=== PATIENT | male | born 1940 | race African-American/Black ===

== ENCOUNTER 2016-08-31 18:25 | Inpatient (IN) | payer MEDICARE, OTHER ==
[~2016-08-31] VITALS: Ht 190.5 cm; Wt 84.4 kg
[2016-08-31] MEDS ORDERED: IV NORMAL SALINE 1000ML BAG 1,000 ML IV SCH (19:13)
[2016-08-31] MEDS ORDERED: PANTOPRAZOLE IV PUSH 40 MG VIAL. IVP ONE (19:15)
[2016-08-31] MEDS ORDERED: ONDANSETRON PF 4 MG/2 ML VIAL. IV ONE (19:15)
[2016-08-31 19:27] LABS: BASO % 0 % (0-3); EOS % 0 % (0-3); HEMATOCRIT 30.1 % (39.0-53.0); HEMOGLOBIN 9.3 g/dL (13.0-17.5); LYMPH # 1.2 x10^3/uL (1.0-4.8); LYMPH % 8 % (24-48); MEAN CORPUSCULAR HEMOGLOBIN 32 pg (25-35); MEAN CORPUSCULAR HGB CONC 31 g/dL (31-37); MEAN CORPUSCULAR VOLUME 102 fL (79-100); MONO % 3 % (0-9); NEUT % 89 % (31-73); PLATELET COUNT 368 x10^3/uL (140-400); RED BLOOD COUNT 2.95 x10^6/uL (4.30-5.70); WHITE BLOOD COUNT 15.4 x10^3/uL (4.0-11.0)
--- NOTE | 2016-08-31 19:42 | PHYS DOC ---
Past Medical History Past Medical History: Other Additional Past Medical Histor: MS, GI Bleeding, blind Past Surgical History: Other Additional Past Surgical Histo: ABD Surgery Jul 2016 Alcohol Use: None Drug Use: None Adult General Chief Complaint Chief Complaint: HEMATEMESIS/VOMITING BLOOD HPI HPI Patient is a 75 year old male who presents with hematemesis. The patient was transferred to the emergency department from [facility] in [place], [place] due to hematemesis that started over the last 3 days. The patient is a quadriplegic and was recently admitted at [facility] for GI bleeding. Patient underwent an exploratory laparotomy, however there are no operative reports to confirm what was found. The patient currently has a PEG tube in place and has been having coffee-ground material coming through the tube. Due to continued weakness the patient was sent to the emergency department for further evaluation. Patient admits that he has pain in his abdomen. Patient also appears lethargic but is able to answer questions one given time. He denies any chest pain. Patient does admit to shortness of breath currently. Review of Systems Review of Systems Constitutional: Generalized weakness, denies fevers or chills [] Eyes: Denies change in visual acuity, redness, or eye pain [] HENT: Denies nasal congestion or sore throat [] Respiratory: Shortness of breath [] Cardiovascular: Denies chest pain [] GI: Hematemesis, abdominal pain [] : Denies dysuria or hematuria [] Musculoskeletal: Denies back pain or joint pain [] Integument: Denies rash or skin lesions [] Neurologic: Quadriplegic [] Current Medications Current Medications Current Medications Medications (Trade) Dose Ordered Sig/Doris Start Time Stop Time Status Last Admin Dose Admin Iohexol (Omnipaque 300 Mg/ml) 60 ml 1X ONCE 08/31/16 20:30 08/31/16 20:31 DC 08/31/16 20:30 60 ML Levofloxacin/ Dextrose (LEVAQUIN 750mg PREMIX) 150 ml @ 100 mls/hr 1X ONCE 08/31/16 22:00 08/31/16 23:29 DC 08/31/16 21:51 100 MLS/HR Levofloxacin/ Dextrose 1 each 1 each PRN DAILY PRN 08/31/16 21:15 Ondansetron HCl (Zofran) 4 mg 1X ONCE 08/31/16 19:15 08/31/16 19:17 DC 08/31/16 19:58 4 MG Pantoprazole Sodium (Protonix Vial) 40 mg 1X ONCE 08/31/16 19:15 08/31/16 19:17 DC 08/31/16 19:57 40 MG Sodium Chloride (Iv Sodium Chloride 0.9% 1000ml Bag) 1,000 ml @ 1,000 mls/hr Q1H 08/31/16 19:13 08/31/16 20:12 DC 08/31/16 20:01 1,000 MLS/HR Allergies Allergies Allergies Coded Allergies Type Severity Reaction Last Updated Verified Penicillins Allergy Intermediate 08/31/16 Yes adhesive tape Allergy Intermediate 08/31/16 Yes Physical Exam Physical Exam Constitutional: Alert, afebrile, appears ill. [] HENT: Normocephalic, atraumatic, bilateral external ears normal, pale mucous membranes, no oral exudates, nose normal. [] Eyes: PERRLA, EOMI, conjunctiva normal, no discharge. [] Neck: Normal range of motion, no tenderness, supple, no stridor. [] Cardiovascular: Tachycardia, regular rhythm, no murmur [] Lungs & Thorax: Bilateral breath sounds clear to auscultation [] Abdomen: PEG tube with coffee-ground material in tube, abdomen mildly distended , bowel sounds distant, no guarding on exam. [] Skin: Warm, dry, no erythema, no rash. [] Back: No tenderness, no CVA tenderness. [] Extremities: No tenderness, no cyanosis, no clubbing, ROM intact, no edema. [] Neurologic: Alert and oriented X 3, normal motor function, normal sensory function, no focal deficits noted. [] Current Patient Data Vital Signs Vital Signs Date Time Temp Pulse Resp B/P Pulse Ox O2 Delivery O2 Flow Rate FiO2 08/31/16 22:11 86 15 121/70 99 Nasal Cannula 2 08/31/16 19:25 97.5 97.5 Lab Values Laboratory Tests Test 08/31/16 18:34 08/31/16 19:05 08/31/16 20:20 08/31/16 20:40 Urine Collection Type U cath Urine Color Yellow Urine Clarity Turbid Urine pH 5.0 Urine Specific [place] 1.025 Urine Protein 100mg/dL (NEG-TRACE) Urine Glucose (UA) Negativemg/dL (NEG) Urine Ketones (Stick) Negativemg/dL (NEG) Urine Blood Large (NEG) Urine Nitrite Negative (NEG) Urine Bilirubin Negative (NEG) Urine Urobilinogen Dipstick 0.2mg/dL (0.2 mg/dL) Urine Leukocyte Esterase Large (NEG) Urine RBC Occ/HPF (0-2) Urine WBC Tntc/HPF (0-4) Urine Squamous Epithelial Cells None/LPF Urine Bacteria Many/HPF (0-FEW) White Blood Count 15.4x10^3/uL (4.0-11.0) H Red Blood Count 2.95x10^6/uL (4.30-5.70) L Hemoglobin 9.3g/dL (13.0-17.5) L Hematocrit 30.1% (39.0-53.0) L Mean Corpuscular Volume 102fL (79-100) H Mean Corpuscular Hemoglobin 32pg (25-35) Mean Corpuscular Hemoglobin Concent 31g/dL (31-37) Red Cell Distribution Width 20.0% (11.5-14.5) H Platelet Count 368x10^3/uL (140-400) Neutrophils (%) (Auto) 89% (31-73) H Lymphocytes (%) (Auto) 8% (24-48) L Monocytes (%) (Auto) 3% (0-9) Eosinophils (%) (Auto) 0% (0-3) Basophils (%) (Auto) 0% (0-3) Neutrophils # (Auto) 13.8x10^3uL (1.8-7.7) H Lymphocytes # (Auto) 1.2x10^3/uL (1.0-4.8) Monocytes # (Auto) 0.4x10^3/uL (0.0-1.1) Eosinophils # (Auto) 0.0x10^3/uL (0.0-0.7) Basophils # (Auto) 0.0x10^3/uL (0.0-0.2) Segmented Neutrophils % 82% (35-66) H Band Neutrophils % 9% (0-9) Lymphocytes % 6% (24-48) L Monocytes % 3% (0-10) Platelet Estimate Adequate (ADEQUATE) Polychromasia Slight Anisocytosis Mod Macrocytosis Slight Sodium Level 146mmol/L (136-145) H Potassium Level 4.8mmol/L (3.5-5.1) Chloride Level 109mmol/L (98-107) H Carbon Dioxide Level 26mmol/L (21-32) Anion Gap 11 (6-14) Blood Urea Nitrogen 35mg/dL (8-26) H Creatinine 1.5mg/dL (0.7-1.3) H Estimated GFR (Cockcroft-Gault) 54.9 BUN/Creatinine Ratio 23 (6-20) H Glucose Level 144mg/dL (70-99) H Lactic Acid Level 1.9mmol/L (0.4-2.0) Calcium Level 9.0mg/dL (8.5-10.1) Total Bilirubin 0.2mg/dL (0.2-1.0) Aspartate Amino Transferase (AST) 23U/L (15-37) Alanine Aminotransferase (ALT) 19U/L (16-63) Alkaline Phosphatase 77U/L (46-116) Creatine Kinase 79U/L (39-308) Creatine Kinase MB (Mass) 2.2ng/mL (0.0-3.6) Creatine Kinase MB Relative Index 2.8% (0-4) Troponin I Quantitative 0.034ng/mL (0.000-0.055) Total Protein 8.5g/dL (6.4-8.2) H Albumin 2.4g/dL (3.4-5.0) L Albumin/Globulin Ratio 0.4 (1.0-1.7) L Prothrombin Time 14.7SEC (11.7-14.0) H Prothrombin Time INR 1.2 (0.8-1.1) H PTT 40SEC (24-38) H Stool Occult Blood Negative (NEG) Laboratory Tests 08/31/16 19:05 Laboratory Tests 08/31/16 19:05 EKG EKG Interpreted by me: Heart rate 93, sinus rhythm, leftward axis, no acute ST/T- wave abnormalities present [] Radiology/Procedures Radiology/Procedures 3 view acute abdominal series interpreted by me: Distended loops of large and small bowel, no free air under the diaphragm, no pulmonary effusions or infiltrate [facility] [address] [place] [address] IMAGING REPORT Signed PATIENT: SISSY QUINN ACCOUNT: [id number] : 1940 LOCATION: ER AGE: 75 SEX: M EXAM STATUS: REG ER ORD. PHYSICIAN: CHAPITO RED MD REASON: abdominal pain, intestinal distention PROCEDURE: ABD PELV W/ IV CONTRAST ONLY PROCEDURE CT abdomen pelvis with intravenous contrast. HISTORY Hematemesis, abdominal pain and distention. TECHNIQUE After administration of intravenous contrast only, 60 mL Omnipaque 300, CT of the abdomen and pelvis was performed. Exposure: One or more of the following individualized dose reduction techniques were utilized for this examination: 1. Automated exposure control. 2. Adjustment of the mA and/or kV according to patient size. 3. Use of iterative reconstruction technique. COMPARISON None. FINDINGS Evaluation of enteric structures may be limited by lack of oral contrast. There is motion artifact at multiple levels which could obscure subtle abnormalities. There is significant streak artifact emanating from the patient's arms which are at his side, limiting evaluation. Images of the lower chest demonstrate small left pleural effusion. Bilateral dependent atelectasis is seen. Moderate bilateral gynecomastia is present. Liver is unremarkable as is the spleen. Pancreas and bilateral adrenal glands are unremarkable. Gallbladder is distended, but otherwise unremarkable. The left kidney is severely atrophic. Both kidneys demonstrate numerous low-density lesions, not well characterized on this examination, but probably cysts. Inferior right renal collecting system demonstrates 4 millimeter nonobstructive nephrolith. Aortic atherosclerosis seen. Maradiaga catheter is present in urinary bladder. A percutaneous gastrostomy tube is seen. There are dilated small bowel loops measuring up to 3.5 centimeters in diameter. The distal ileum demonstrates normal caliber and demonstrates presence of gas and fluid. There is probably a relative transition point involving the mid ileum. Colon demonstrates presence of some mildly dense material. Colon is without evidence of inflammation. Levoconvex scoliosis of the spine is seen. Multilevel degeneration of the spine is seen. IMPRESSION 1. Limitations of study as described above. 2. There is evidence of partial small bowel obstruction. There probably is relative transition point involving mid ileum. 3. Atrophic left kidney. Both kidneys demonstrate low-density lesions, probably cysts. Nonobstructive right nephrolith. 4. Small left pleural effusion. Electronically signed by: Ra Priest MD (Aug 31, 2016 21:49:57) DICTATED and SIGNED BY: RA PRIEST MD DATE: 08/31/162148 CC: CHAPITO RED MD; SARTHAK BARAHONA ~ [] Course & Med Decision Making Course & Med Decision Making Pertinent Labs and Imaging studies reviewed. (See chart for details) Patient started on IV fluids in the emergency department. Patient found to have evidence of ileus versus partial small bowel obstruction. Due to coffee-ground emesis, the patient was started on IV Protonix with IV bolus followed by IV drip. The the patient's G-tube was set to low suction in the emergency department. On reevaluation, patient states his symptoms are improving at this time. I spoke with Dr. Shane of general surgery who agreed that the patient would be a candidate for nonoperative treatment at this time. Patient was found to have evidence of urinary tract infection and started on IV Levaquin for treatment. The patient will be admitted to the hospital with consultation placed to both Dr. Shane of general surgery and Dr. Rosario of gastroenterology. Patient was admitted to Dr. Oakley. Dragon Disclaimer Dragon Disclaimer This electronic medical record was generated, in whole or in part, using a voice recognition dictation system. Departure Departure Impression: Primary Impression: SBO (small bowel obstruction) Additional Impressions: UTI (urinary tract infection) Upper GI bleed Severe protein-calorie malnutrition Quadriplegia Disposition: 09 ADMITTED INPATIENT Admitting Physician: Juliet Oakley Condition: GUARDED Referrals: SARTHAK BARAHONA (PCP) Problem Qualifiers Additional Impressions: UTI (urinary tract infection) Urinary tract infection type: site unspecified Hematuria presence: without hematuria Qualified Code: N39.0 - Urinary tract infection, site not specified CHAPITO RED MD Aug 31, 2016 19:42
[2016-08-31 19:55] LABS: ALBUMIN 2.4 g/dL (3.4-5.0); ALBUMIN/GLOBULIN RATIO 0.4 (1.0-1.7); CREATININE 1.5 mg/dL (0.7-1.3); GFR 54.9; POTASSIUM 4.8 mmol/L (3.5-5.1); TOTAL BILIRUBIN 0.2 mg/dL (0.2-1.0); TOTAL PROTEIN 8.5 g/dL (6.4-8.2)
[2016-08-31 19:57] LABS: CKMB INDEX 2.8 % (0-4); CKMB MASS 2.2 ng/mL (0.0-3.6)
[2016-08-31 20:11] LABS: ANISOCYTOSIS MOD; PLT ESTIMATE ADEQUATE (ADEQUATE); POLYCHROMASIA SLIGHT
[2016-08-31 20:20] LABS: BILIRUBIN,URINE NEGATIVE (NEG); GLUCOSE,URINE NEGATIVE (NEG); NITRITE,URINE NEGATIVE (NEG); PROTEIN,URINE 100 mg/dL (NEG-TRACE); UROBILINOGEN,URINE 0.2 mg/dL (0.2 mg/dL)
[2016-08-31 20:29] LABS: RBC,URINE OCC /HPF (0-2); WBC,URINE TNTC /HPF (0-4)
[2016-08-31 20:30] LABS: BACTERIA,URINE MANY /HPF (0-FEW)
[2016-08-31] MEDS ORDERED: IOHEXOL 300 MG/ML 75 ML VIAL IV ONE (20:30)
[2016-08-31 21:01] LABS: INR 1.2 (0.8-1.1); PROTHROMBIN TIME PATIENT 14.7 SEC (11.7-14.0)
[2016-08-31 21:09] LABS: NEG OBC FOB NEG; POS OBC FOB POS
[2016-08-31] MEDS ORDERED: LEVOFLOXACIN PER PHARMACY MC PRN (21:15)
--- NOTE | 2016-08-31 21:51 | RAD ---
PROCEDURE CT abdomen pelvis with intravenous contrast. HISTORY Hematemesis, abdominal pain and distention. TECHNIQUE After administration of intravenous contrast only, 60 mL Omnipaque 300, CT of the abdomen and pelvis was performed. Exposure: One or more of the following individualized dose reduction techniques were utilized for this examination: 1. Automated exposure control. 2. Adjustment of the mA and/or kV according to patient size. 3. Use of iterative reconstruction technique. COMPARISON None. FINDINGS Evaluation of enteric structures may be limited by lack of oral contrast. There is motion artifact at multiple levels which could obscure subtle abnormalities. There is significant streak artifact emanating from the patient's arms which are at his side, limiting evaluation. Images of the lower chest demonstrate small left pleural effusion. Bilateral dependent atelectasis is seen. Moderate bilateral gynecomastia is present. Liver is unremarkable as is the spleen. Pancreas and bilateral adrenal glands are unremarkable. Gallbladder is distended, but otherwise unremarkable. The left kidney is severely atrophic. Both kidneys demonstrate numerous low-density lesions, not well characterized on this examination, but probably cysts. Inferior right renal collecting system demonstrates 4 millimeter nonobstructive nephrolith. Aortic atherosclerosis seen. Maradiaga catheter is present in urinary bladder. A percutaneous gastrostomy tube is seen. There are dilated small bowel loops measuring up to 3.5 centimeters in diameter. The distal ileum demonstrates normal caliber and demonstrates presence of gas and fluid. There is probably a relative transition point involving the mid ileum. Colon demonstrates presence of some mildly dense material. Colon is without evidence of inflammation. Levoconvex scoliosis of the spine is seen. Multilevel degeneration of the spine is seen. IMPRESSION 1. Limitations of study as described above. 2. There is evidence of partial small bowel obstruction. There probably is relative transition point involving mid ileum. 3. Atrophic left kidney. Both kidneys demonstrate low-density lesions, probably cysts. Nonobstructive right nephrolith. 4. Small left pleural effusion. Electronically signed by: Ra Donovan MD (Aug 31, 2016 21:49:57)
[2016-08-31] MEDS ORDERED: PANTOPRAZOLE SODIUM IV 80 MG in IV NORMAL SALINE 100ML 100 ML IV ONE (23:00)
[2016-08-31 23:20] VITALS: BP 101/58
[2016-09-01] VITALS (10 sets, daily range): BP systolic 76–123; BP diastolic 44–68
[2016-09-01] MEDS: IV NORMAL SALINE 1000ML BAG 1,000 ML IV SCH ×2 (00:13→21:18)
[2016-09-01] MEDS ORDERED: TIMO5DRO5 LEFTEYE (03:40)
[2016-09-01] MEDS ORDERED: ATOR80TA72 PEG (03:40)
[2016-09-01] MEDS ORDERED: AMLO5TAB2 PEG (03:40)
[2016-09-01] MEDS ORDERED: ZOLP5TAB4 PO (03:40)
[2016-09-01] MEDS ORDERED: OXYB5SYR2 PO (03:40)
[2016-09-01] MEDS ORDERED: ACET325T9 PEG (03:40)
[2016-09-01] MEDS ORDERED: ENOX40DI SQ (03:40)
[2016-09-01] MEDS ORDERED: FERR-26 PEG (03:40)
[2016-09-01] MEDS ORDERED: CYAN10005 SL (03:40)
[2016-09-01] MEDS ORDERED: ASCO500T3 PEG (03:40)
[2016-09-01] MEDS ORDERED: FENT1PAT93 TD (03:40)
[2016-09-01] MEDS ORDERED: OXYC-323 PEG (03:40)
[2016-09-01] MEDS ORDERED: [UNRECOGNIZED DRUG - CODE] PEG (03:40)
[2016-09-01] MEDS ORDERED: ASPI81TA2 PEG (03:40)
[2016-09-01] MEDS: MORPHINE SULFATE 2 MG/ML DISP.SYRIN. IV PRN ×5 (04:24→18:27)
--- NOTE | 2016-09-01 06:28 | EKG ---
[facility] [address] [place] [address] Test Date: 2016-08-31 Test Time: 19:50:12 Pat Name: SISSY QUINN Department: Room: Gender: M Administrative Technician: : 1940 Requested By: CHAPITO RED Order Number: [id number] Reading MD: Measurements Intervals Vina Rate: 93 P: 30 ID: [id number] QRS: 0 QRSD: 72 T: 66 QT: 358 QTc: 448 Interpretive Statements SINUS RHYTHM LEFT ATRIAL ABNORMALITY LEFTWARD AXIS QRS(T) CONTOUR ABNORMALITY CONSISTENT WITH INFERIOR INFARCT PROBABLY OLD T ABNORMALITY IN HIGH LATERAL LEADS ABNORMAL ECG RI6.01 No previous ECG available for comparison
[2016-09-01 07:31] LABS: BASO % 0 % (0-3); EOS % 0 % (0-3); HEMATOCRIT 25.9 % (39.0-53.0); HEMOGLOBIN 7.8 g/dL (13.0-17.5); LYMPH % 21 % (24-48); MEAN CORPUSCULAR HEMOGLOBIN 32 pg (25-35); MEAN CORPUSCULAR HGB CONC 30 g/dL (31-37); MEAN CORPUSCULAR VOLUME 106 fL (79-100); MONO % 4 % (0-9); NEUT % 75 % (31-73); PLATELET COUNT 285 x10^3/uL (140-400); RED BLOOD COUNT 2.44 x10^6/uL (4.30-5.70); RED CELL DISTRIBUTION WIDTH 20.1 % (11.5-14.5); WHITE BLOOD COUNT 9.6 x10^3/uL (4.0-11.0)
[2016-09-01 07:43] LABS: CALCIUM 8.1 mg/dL (8.5-10.1); CREATININE 1.4 mg/dL (0.7-1.3); GFR 59.5
--- NOTE | 2016-09-01 08:11 | RAD ---
Portable abdomen series with chest, 3 views, 08/31/2016: History: Hematemesis A gastrostomy tube overlies the left upper quadrant of the abdomen. There is mild gaseous distention of predominantly small bowel loops in the central abdomen. Gas is present in the colon. No free air is seen in the abdomen. There are scattered vascular calcifications. There are additional small scattered radiopacities which may represent phleboliths. Renal calculi cannot be excluded. The bony structures are demineralized. Moderate multilevel degenerative change is present in the spine. The heart is within normal limits in size. There is mild streaky atelectasis/infiltrate in the left base. A component of scarring cannot be excluded. There is no evidence of pleural fluid. IMPRESSION: 1. Mildly distended gas-filled small bowel loops compatible with partial small bowel obstruction versus an ileus. 2. Mild left basilar atelectasis/infiltrate.
[2016-09-01] MEDS: ONDANSETRON PF 4 MG/2 ML VIAL. IV PRN ×2 (08:42→18:26)
--- NOTE | 2016-09-01 08:49 | PDOC2 ---
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 Post-operatively, he had SD and resp failure, was intubated, and had PEG placed endoscopically. His daughter is present to provide history and reports that he has been able to eat by mouth at his senior living beginning on 08/29. After PO restarted, the nurse there described some coffee-ground emesis. His daughter says he was brought to the [facility] ER due to red eyes, sweats, and heavy breathing. The ER note suggests that coffee-ground material was coming out of his PEG tube; per RN and daughter , material suctioned from PEG since admission has been green. Vomiting has not recurred. He has indicated to his daughter that he has some abdominal pain. It 's unclear when his last BM was but he does have a h/o some constipation improved w/ stool softeners. No previous colonoscopy. Note home meds show ASA , iron, B12. Here, labs Hgb 9.3 (now 7.8), BUN 35 (now 33), Cr 1.4, hemoccult negative. CT w/ IV contrast shows partial small bowel obstruction. Surgery asked to see as well. PMH: PMH: neuroendocrine tumor, exploratory lap, MS, HTN, UTIs, neurogenic bladder, glaucoma, cataract extraction FH: Family History: No pertinent hx Social History: ALCOHOL: none Drugs: None ROS: Per pt and daughter: GEN: sweats HEENT: Denies blurred vision, sore throat CV: Denies chest pain RESP: SOA GI: Per HPI : Denies hematuria, dysuria ENDO: Denies weight changes NEURO: Denies confusion, dizziness MSK: weakness SKIN: Denies jaundice, pruritus VItals: Vitals: Vital Signs Date Time Temp Pulse Resp B/P Pulse Ox O2 Delivery O2 Flow Rate FiO2 09/01/16 06:32 16 Room Air 09/01/16 04:21 68 123/68 09/01/16 03:00 97.3 94 97.3 09/01/16 00:00 3.0 Labs: Labs: Laboratory Tests Test 08/31/16 18:34 08/31/16 19:05 08/31/16 20:20 2/16/17 20:40 Urine Collection Type U cath Urine Color Yellow Urine Clarity Turbid Urine pH 5.0 Urine Specific [place] 1.025 Urine Protein 100mg/dL (NEG-TRACE) Urine Glucose (UA) Negativemg/dL (NEG) Urine Ketones (Stick) Negativemg/dL (NEG) Urine Blood Large (NEG) Urine Nitrite Negative (NEG) Urine Bilirubin Negative (NEG) Urine Urobilinogen Dipstick 0.2mg/dL (0.2 mg/dL) Urine Leukocyte Esterase Large (NEG) Urine RBC Occ/HPF (0-2) Urine WBC Tntc/HPF (0-4) Urine Squamous Epithelial Cells None/LPF Urine Bacteria Many/HPF (0-FEW) White Blood Count 15.4x10^3/uL (4.0-11.0) Red Blood Count 2.95x10^6/uL (4.30-5.70) Hemoglobin 9.3g/dL (13.0-17.5) Hematocrit 30.1% (39.0-53.0) Mean Corpuscular Volume 102fL (79-100) Mean Corpuscular Hemoglobin 32pg (25-35) Mean Corpuscular Hemoglobin Concent 31g/dL (31-37) Red Cell Distribution Width 20.0% (11.5-14.5) Platelet Count 368x10^3/uL (140-400) Neutrophils (%) (Auto) 89% (31-73) Lymphocytes (%) (Auto) 8% (24-48) Monocytes (%) (Auto) 3% (0-9) Eosinophils (%) (Auto) 0% (0-3) Basophils (%) (Auto) 0% (0-3) Neutrophils # (Auto) 13.8x10^3uL (1.8-7.7) Lymphocytes # (Auto) 1.2x10^3/uL (1.0-4.8) Monocytes # (Auto) 0.4x10^3/uL (0.0-1.1) Eosinophils # (Auto) 0.0x10^3/uL (0.0-0.7) Basophils # (Auto) 0.0x10^3/uL (0.0-0.2) Segmented Neutrophils % 82% (35-66) Band Neutrophils % 9% (0-9) Lymphocytes % 6% (24-48) Monocytes % 3% (0-10) Platelet Estimate Adequate (ADEQUATE) Polychromasia Slight Anisocytosis Mod Macrocytosis Slight Sodium Level 146mmol/L (136-145) Potassium Level 4.8mmol/L (3.5-5.1) Chloride Level 109mmol/L (98-107) Carbon Dioxide Level 26mmol/L (21-32) Anion Gap 11 (6-14) Blood Urea Nitrogen 35mg/dL (8-26) Creatinine 1.5mg/dL (0.7-1.3) Estimated GFR (Cockcroft-Gault) 54.9 BUN/Creatinine Ratio 23 (6-20) Glucose Level 144mg/dL (70-99) Lactic Acid Level 1.9mmol/L (0.4-2.0) Calcium Level 9.0mg/dL (8.5-10.1) Total Bilirubin 0.2mg/dL (0.2-1.0) Aspartate Amino Transf (AST/SGOT) 23U/L (15-37) Alanine Aminotransferase (ALT/SGPT) 19U/L (16-63) Alkaline Phosphatase 77U/L (46-116) Creatine Kinase 79U/L (39-308) Creatine Kinase MB (Mass) 2.2ng/mL (0.0-3.6) Creatine Kinase MB Relative Index 2.8% (0-4) Troponin I Quantitative 0.034ng/mL (0.000-0.055) Total Protein 8.5g/dL (6.4-8.2) Albumin 2.4g/dL (3.4-5.0) Albumin/Globulin Ratio 0.4 (1.0-1.7) Prothrombin Time 14.7SEC (11.7-14.0) Prothromb Time International Ratio 1.2 (0.8-1.1) Activated Partial Thromboplast Time 40SEC (24-38) Stool Occult Blood Negative (NEG) Test 09/01/16 07:21 White Blood Count 9.6x10^3/uL (4.0-11.0) Red Blood Count 2.44x10^6/uL (4.30-5.70) Hemoglobin 7.8g/dL (13.0-17.5) Hematocrit 25.9% (39.0-53.0) Mean Corpuscular Volume 106fL (79-100) Mean Corpuscular Hemoglobin 32pg (25-35) Mean Corpuscular Hemoglobin Concent 30g/dL (31-37) Red Cell Distribution Width 20.1% (11.5-14.5) Platelet Count 285x10^3/uL (140-400) Neutrophils (%) (Auto) 75% (31-73) Lymphocytes (%) (Auto) 21% (24-48) Monocytes (%) (Auto) 4% (0-9) Eosinophils (%) (Auto) 0% (0-3) Basophils (%) (Auto) 0% (0-3) Neutrophils # (Auto) 7.1x10^3uL (1.8-7.7) Lymphocytes # (Auto) 2.0x10^3/uL (1.0-4.8) Monocytes # (Auto) 0.4x10^3/uL (0.0-1.1) Eosinophils # (Auto) 0.0x10^3/uL (0.0-0.7) Basophils # (Auto) 0.0x10^3/uL (0.0-0.2) Sodium Level 150mmol/L (136-145) Potassium Level 5.0mmol/L (3.5-5.1) Chloride Level 115mmol/L (98-107) Carbon Dioxide Level 26mmol/L (21-32) Anion Gap 9 (6-14) Blood Urea Nitrogen 33mg/dL (8-26) Creatinine 1.4mg/dL (0.7-1.3) Estimated GFR (Cockcroft-Gault) 59.5 Glucose Level 104mg/dL (70-99) Calcium Level 8.1mg/dL (8.5-10.1) Allergies: Coded Allergies: Penicillins (Verified Allergy, Intermediate, 08/31/16) adhesive tape (Verified Allergy, Intermediate, 08/31/16) Medications: Current Medications Medications (Trade) Dose Ordered Sig/Doris Route PRN Reason Start Time Stop Time Status Last Admin Dose Admin Sodium Chloride (Iv Sodium Chloride 0.9% 1000ml Bag) 1,000 ml @ 1,000 mls/hr Q1H IV 08/31/16 19:13 08/31/16 20:12 DC 08/31/16 20:01 Ondansetron HCl (Zofran) 4 mg 1X ONCE IV 08/31/16 19:15 08/31/16 19:17 DC 08/31/16 19:58 Pantoprazole Sodium (Protonix Vial) 40 mg 1X ONCE IVP 08/31/16 19:15 08/31/16 19:17 DC 08/31/16 19:57 Iohexol 60 ml 60 ml 1X ONCE IV 08/31/16 20:30 08/31/16 20:31 DC 08/31/16 20:30 Levofloxacin/ Dextrose 150 ml @ 100 mls/hr 1X ONCE IV 08/31/16 22:00 08/31/16 23:29 DC 08/31/16 21:51 Pantoprazole Sodium 80 mg/ Sodium Chloride 100 ml @ 10 mls/hr 1X ONCE IV 08/31/16 23:00 09/01/16 08:59 09/01/16 00:14 Sodium Chloride (Iv Sodium Chloride 0.9% 1000ml Bag) 1,000 ml @ 100 mls/hr Q10H IV 08/31/16 23:26 09/01/16 23:25 09/01/16 00:13 Morphine Sulfate 2 mg PRN Q2HR PRN IV SEVERE PAIN 09/01/16 03:15 09/01/16 06:32 Imaging: Imaging: Acute Abd Series IMPRESSION: 1. Mildly distended gas-filled small bowel loops compatible with partial small bowel obstruction versus an ileus. 2. Mild left basilar atelectasis/infiltrate. CT A/P w/ IV contrast IMPRESSION 1. Limitations of study as described above. 2. There is evidence of partial small bowel obstruction. There probably is relative transition point involving mid ileum. 3. Atrophic left kidney. Both kidneys demonstrate low-density lesions, probably cysts. Nonobstructive right nephrolith. 4. Small left pleural effusion. PE: GEN: NAD HEENT: Atraumatic LUNGS: decreased anteriorly HEART: RRR ABD: BS+, soft, non-tender, PEG in place w/ green contents on suction, recent lap scar EXTREMITY: No edema SKIN: No rashes NEURO/PSYCH: awake, speaks some to daughter A/P: A/P: S/p laparotomy and PEG placement -at , surgery showed neuroendocrine tumor, post-op course was complicated w/ resp failure, SD ?hematemesis, abd pain -after resuming PO intake earlier this week, described by [place] nurse -PEG contents now green Partial SBO -on CT as above Anemia -Hgb 9.3 to 7.8 -- Reviewed w/ Dr. Rosario. Stress-ulcer possible w/ recent PEG placement. Agree w/ PPI. D/w surgery - NPO, continue PEG suction. If no improvement, ideally would transfer to to follow-up w/ established surgeon. Would transfuse. DAMON LANGSTON Sep 01, 2016 08:49
--- NOTE | 2016-09-01 09:03 | PDOC2 ---
TIMURRONALD Martha DRUM STRAIGHTENER 09/01/16 0903: CONSULT Date of Consult Date of Consult DATE: 09/01/16 TIME: 08:44 Reason for Consult Reason for Consult: GI bleed, psbo Referring Physician Referring Physician: ER Identification/Chief Complaint Chief Complaint hematemesis, abdominal pain Source Source: Chart review, Patient History of Present Illness Reason for Visit: Patient unable to provide history. Daughter is present and records reviewed from [place]. 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 Began taking oral food again on Sunday. had coffee ground emesis and complaints of abdominal pain. No emesis since admission Past Medical History Past Medical History legally blind, neurogenic bladder, multiple sclerosis, depression, chronic abdominal pain, quadriplegic due to MS, bed bound Past Surgical History Past Surgical History: Cataract Removal, Other (laparotomy, egd, peg placement) Family History Family History: Other (noncontributory to current illness) Social History No ALCOHOL: none Drugs: None Lives: Longterm Current Problem List Problem List Problems Medical Problems: (1) Quadriplegia Status: Acute (2) SBO (small bowel obstruction) Status: Acute (3) Severe protein-calorie malnutrition Status: Acute (4) Upper GI bleed Status: Acute (5) UTI (urinary tract infection) Status: Acute Current Medications Current Medications Current Medications Sodium Chloride (Iv Sodium Chloride 0.9% 1000ml Bag) 1,000 ml @ 1,000 mls/hr Q1H IV Last administered on 08/31/16 20:01; Start 08/31/16 at 19:13; Stop at 20:12; Status DC Ondansetron HCl (Zofran) 4 mg 1X ONCE IV Last administered on 08/31/16 19:58 ; Start 08/31/16 at 19:15; Stop 08/31/16 at 19:17; Status DC Pantoprazole Sodium (Protonix Vial) 40 mg 1X ONCE IVP Last administered on 19:57; Start 08/31/16 at 19:15; Stop 08/31/16 at 19:17; Status DC Iohexol (Omnipaque 300 Mg/ml) 60 ml 1X ONCE IV Last administered on 08/31/16 20:30; Start 08/31/16 at 20:30; Stop 08/31/16 at 20:31; Status DC Levofloxacin/ Dextrose 1 each 1 each PRN DAILY PRN MC SEE COMMENTS; Start 08/31 at 21:15 Levofloxacin/ Dextrose 150 ml @ 100 mls/hr 1X ONCE IV Last administered on 21:51; Start 08/31/16 at 22:00; Stop 08/31/16 at 23:29; Status DC Pantoprazole Sodium 80 mg/ Sodium Chloride 100 ml @ 10 mls/hr 1X ONCE IV Last administered on 09/01/16 00:14; Start 08/31/16 at 23:00; Stop 09/01/16 at 08:59 Levofloxacin/ Dextrose (LEVAQUIN 250mg PREMIX) 50 ml @ 50 mls/hr Q24H IV ; Start 09/01/16 at 22:00 Ondansetron HCl 4 mg 4 mg PRN Q8HRS PRN IV NAUSEA/VOMITING Last administered on 09/01/16 08:42; Start 08/31/16 at 23:30; Stop 09/01/16 at 23:29 Sodium Chloride (Iv Sodium Chloride 0.9% 1000ml Bag) 1,000 ml @ 100 mls/hr Q10H IV Last administered on 09/01/16 00:13; Start 08/31/16 at 23:26; Stop at 23:25 Morphine Sulfate 2 mg PRN Q2HR PRN IV SEVERE PAIN Last administered on 08:41; Start 09/01/16 at 03:15 Active Scripts Active Reported Timolol Maleate 10 Ml Drops 1 Drop LEFTEYE DAILY Zolpidem Tartrate 5 Mg Tablet 5 Mg PO HS Percocet 5-325 Mg Tablet (Oxycodone/Acetaminophen) 1 Each Tablet 1 Tab PEG PRN Q4HRS PRN Oxybutynin Chloride 5 Mg/5 Ml Syrup 5 Mg PO BID Ferrous Sulfate 325 Mg Tablet 300 Mg PEG DAILY DURAGESIC 100mcg/hr (Fentanyl) 1 Each Patch.td72 1 Patch TD Q72H Lovenox (Enoxaparin Sodium) 40 Mg/0.4 Ml Disp.syrin 40 Mg SQ HS Vitamin B-12 (Cyanocobalamin (Vitamin B-12)) 1,000 Mcg Tablet 1,000 Mcg SL DAILY Just D (Cholecalciferol (Vitamin D3)) 400 Unit/1 Ml Drops 400 Unit PEG DAILY Atorvastatin Calcium 80 Mg Tablet 80 Mg PEG HS Aspirin 81 Mg Tab.chew 81 Mg PEG DAILY Ascorbic Acid 500 Mg Tablet 500 Mg PEG DAILY Amlodipine Besylate 5 Mg Tablet 5 Mg PEG DAILY Tylenol (Acetaminophen) 325 Mg Tablet 650 Mg PEG PRN PRN Allergies Allergies: Coded Allergies: Penicillins (Verified Allergy, Intermediate, 08/31/16) adhesive tape (Verified Allergy, Intermediate, 08/31/16) ROS Review of System unable to obtain Physical Exam General: No acute distress, Other (resting in bed, mainly non verbal, will answer few yes/no questions ) HEENT: Atraumatic, Mucous membr. moist/pink Lungs: Other (diminshed [place]) Heart: Regular rate, Normal S1, Normal S2 Abdomen: Soft, Other (does not appear in pain when palpated, midline scar well healed, g tube to LIS, gastric drainage, no blood) Extremities: No edema Skin: No rashes, No breakdown Vitals VITALS Vital Signs Date Time Temp Pulse Resp B/P Pulse Ox O2 Delivery O2 Flow Rate FiO2 09/01/16 08:41 18 Nasal Cannula 3.0 09/01/16 04:21 68 123/68 09/01/16 03:00 97.3 94 97.3 Labs Labs Laboratory Tests Test 08/31/16 18:34 08/31/16 19:05 08/31/16 20:20 08/31/16 20:40 Urine Collection Type U cath Urine Color Yellow Urine Clarity Turbid Urine pH 5.0 Urine Specific [place] 1.025 Urine Protein 100mg/dL (NEG-TRACE) Urine Glucose (UA) Negativemg/dL (NEG) Urine Ketones (Stick) Negativemg/dL (NEG) Urine Blood Large (NEG) Urine Nitrite Negative (NEG) Urine Bilirubin Negative (NEG) Urine Urobilinogen Dipstick 0.2mg/dL (0.2 mg/dL) Urine Leukocyte Esterase Large (NEG) Urine RBC Occ/HPF (0-2) Urine WBC Tntc/HPF (0-4) Urine Squamous Epithelial Cells None/LPF Urine Bacteria Many/HPF (0-FEW) White Blood Count 15.4x10^3/uL (4.0-11.0) Red Blood Count 2.95x10^6/uL (4.30-5.70) Hemoglobin 9.3g/dL (13.0-17.5) Hematocrit 30.1% (39.0-53.0) Mean Corpuscular Volume 102fL (79-100) Mean Corpuscular Hemoglobin 32pg (25-35) Mean Corpuscular Hemoglobin Concent 31g/dL (31-37) Red Cell Distribution Width 20.0% (11.5-14.5) Platelet Count 368x10^3/uL (140-400) Neutrophils (%) (Auto) 89% (31-73) Lymphocytes (%) (Auto) 8% (24-48) Monocytes (%) (Auto) 3% (0-9) Eosinophils (%) (Auto) 0% (0-3) Basophils (%) (Auto) 0% (0-3) Neutrophils # (Auto) 13.8x10^3uL (1.8-7.7) Lymphocytes # (Auto) 1.2x10^3/uL (1.0-4.8) Monocytes # (Auto) 0.4x10^3/uL (0.0-1.1) Eosinophils # (Auto) 0.0x10^3/uL (0.0-0.7) Basophils # (Auto) 0.0x10^3/uL (0.0-0.2) Segmented Neutrophils % 82% (35-66) Band Neutrophils % 9% (0-9) Lymphocytes % 6% (24-48) Monocytes % 3% (0-10) Platelet Estimate Adequate (ADEQUATE) Polychromasia Slight Anisocytosis Mod Macrocytosis Slight Sodium Level 146mmol/L (136-145) Potassium Level 4.8mmol/L (3.5-5.1) Chloride Level 109mmol/L (98-107) Carbon Dioxide Level 26mmol/L (21-32) Anion Gap 11 (6-14) Blood Urea Nitrogen 35mg/dL (8-26) Creatinine 1.5mg/dL (0.7-1.3) Estimated GFR (Cockcroft-Gault) 54.9 BUN/Creatinine Ratio 23 (6-20) Glucose Level 144mg/dL (70-99) Lactic Acid Level 1.9mmol/L (0.4-2.0) Calcium Level 9.0mg/dL (8.5-10.1) Total Bilirubin 0.2mg/dL (0.2-1.0) Aspartate Amino Transf (AST/SGOT) 23U/L (15-37) Alanine Aminotransferase (ALT/SGPT) 19U/L (16-63) Alkaline Phosphatase 77U/L (46-116) Creatine Kinase 79U/L (39-308) Creatine Kinase MB (Mass) 2.2ng/mL (0.0-3.6) Creatine Kinase MB Relative Index 2.8% (0-4) Troponin I Quantitative 0.034ng/mL (0.000-0.055) Total Protein 8.5g/dL (6.4-8.2) Albumin 2.4g/dL (3.4-5.0) Albumin/Globulin Ratio 0.4 (1.0-1.7) Prothrombin Time 14.7SEC (11.7-14.0) Prothromb Time International Ratio 1.2 (0.8-1.1) Activated Partial Thromboplast Time 40SEC (24-38) Stool Occult Blood Negative (NEG) Test 09/01/16 07:21 White Blood Count 9.6x10^3/uL (4.0-11.0) Red Blood Count 2.44x10^6/uL (4.30-5.70) Hemoglobin 7.8g/dL (13.0-17.5) Hematocrit 25.9% (39.0-53.0) Mean Corpuscular Volume 106fL (79-100) Mean Corpuscular Hemoglobin 32pg (25-35) Mean Corpuscular Hemoglobin Concent 30g/dL (31-37) Red Cell Distribution Width 20.1% (11.5-14.5) Platelet Count 285x10^3/uL (140-400) Neutrophils (%) (Auto) 75% (31-73) Lymphocytes (%) (Auto) 21% (24-48) Monocytes (%) (Auto) 4% (0-9) Eosinophils (%) (Auto) 0% (0-3) Basophils (%) (Auto) 0% (0-3) Neutrophils # (Auto) 7.1x10^3uL (1.8-7.7) Lymphocytes # (Auto) 2.0x10^3/uL (1.0-4.8) Monocytes # (Auto) 0.4x10^3/uL (0.0-1.1) Eosinophils # (Auto) 0.0x10^3/uL (0.0-0.7) Basophils # (Auto) 0.0x10^3/uL (0.0-0.2) Sodium Level 150mmol/L (136-145) Potassium Level 5.0mmol/L (3.5-5.1) Chloride Level 115mmol/L (98-107) Carbon Dioxide Level 26mmol/L (21-32) Anion Gap 9 (6-14) Blood Urea Nitrogen 33mg/dL (8-26) Creatinine 1.4mg/dL (0.7-1.3) Estimated GFR (Cockcroft-Gault) 59.5 Glucose Level 104mg/dL (70-99) Calcium Level 8.1mg/dL (8.5-10.1) Laboratory Tests Test 08/31/16 18:34 08/31/16 19:05 08/31/16 20:20 08/31/16 20:40 Urine Collection Type U cath Urine Color Yellow Urine Clarity Turbid Urine pH 5.0 Urine Specific [place] 1.025 Urine Protein 100mg/dL (NEG-TRACE) Urine Glucose (UA) Negativemg/dL (NEG) Urine Ketones (Stick) Negativemg/dL (NEG) Urine Blood Large (NEG) Urine Nitrite Negative (NEG) Urine Bilirubin Negative (NEG) Urine Urobilinogen Dipstick 0.2mg/dL (0.2 mg/dL) Urine Leukocyte Esterase Large (NEG) Urine RBC Occ/HPF (0-2) Urine WBC Tntc/HPF (0-4) Urine Squamous Epithelial Cells None/LPF Urine Bacteria Many/HPF (0-FEW) White Blood Count 15.4x10^3/uL (4.0-11.0) Red Blood Count 2.95x10^6/uL (4.30-5.70) Hemoglobin 9.3g/dL (13.0-17.5) Hematocrit 30.1% (39.0-53.0) Mean Corpuscular Volume 102fL (79-100) Mean Corpuscular Hemoglobin 32pg (25-35) Mean Corpuscular Hemoglobin Concent 31g/dL (31-37) Red Cell Distribution Width 20.0% (11.5-14.5) Platelet Count 368x10^3/uL (140-400) Neutrophils (%) (Auto) 89% (31-73) Lymphocytes (%) (Auto) 8% (24-48) Monocytes (%) (Auto) 3% (0-9) Eosinophils (%) (Auto) 0% (0-3) Basophils (%) (Auto) 0% (0-3) Neutrophils # (Auto) 13.8x10^3uL (1.8-7.7) Lymphocytes # (Auto) 1.2x10^3/uL (1.0-4.8) Monocytes # (Auto) 0.4x10^3/uL (0.0-1.1) Eosinophils # (Auto) 0.0x10^3/uL (0.0-0.7) Basophils # (Auto) 0.0x10^3/uL (0.0-0.2) Segmented Neutrophils % 82% (35-66) Band Neutrophils % 9% (0-9) Lymphocytes % 6% (24-48) Monocytes % 3% (0-10) Platelet Estimate Adequate (ADEQUATE) Polychromasia Slight Anisocytosis Mod Macrocytosis Slight Sodium Level 146mmol/L (136-145) Potassium Level 4.8mmol/L (3.5-5.1) Chloride Level 109mmol/L (98-107) Carbon Dioxide Level 26mmol/L (21-32) Anion Gap 11 (6-14) Blood Urea Nitrogen 35mg/dL (8-26) Creatinine 1.5mg/dL (0.7-1.3) Estimated GFR (Cockcroft-Gault) 54.9 BUN/Creatinine Ratio 23 (6-20) Glucose Level 144mg/dL (70-99) Lactic Acid Level 1.9mmol/L (0.4-2.0) Calcium Level 9.0mg/dL (8.5-10.1) Total Bilirubin 0.2mg/dL (0.2-1.0) Aspartate Amino Transf (AST/SGOT) 23U/L (15-37) Alanine Aminotransferase (ALT/SGPT) 19U/L (16-63) Alkaline Phosphatase 77U/L (46-116) Creatine Kinase 79U/L (39-308) Creatine Kinase MB (Mass) 2.2ng/mL (0.0-3.6) Creatine Kinase MB Relative Index 2.8% (0-4) Troponin I Quantitative 0.034ng/mL (0.000-0.055) Total Protein 8.5g/dL (6.4-8.2) Albumin 2.4g/dL (3.4-5.0) Albumin/Globulin Ratio 0.4 (1.0-1.7) Prothrombin Time 14.7SEC (11.7-14.0) Prothromb Time International Ratio 1.2 (0.8-1.1) Activated Partial Thromboplast Time 40SEC (24-38) Stool Occult Blood Negative (NEG) Test 09/01/16 07:21 White Blood Count 9.6x10^3/uL (4.0-11.0) Red Blood Count 2.44x10^6/uL (4.30-5.70) Hemoglobin 7.8g/dL (13.0-17.5) Hematocrit 25.9% (39.0-53.0) Mean Corpuscular Volume 106fL (79-100) Mean Corpuscular Hemoglobin 32pg (25-35) Mean Corpuscular Hemoglobin Concent 30g/dL (31-37) Red Cell Distribution Width 20.1% (11.5-14.5) Platelet Count 285x10^3/uL (140-400) Neutrophils (%) (Auto) 75% (31-73) Lymphocytes (%) (Auto) 21% (24-48) Monocytes (%) (Auto) 4% (0-9) Eosinophils (%) (Auto) 0% (0-3) Basophils (%) (Auto) 0% (0-3) Neutrophils # (Auto) 7.1x10^3uL (1.8-7.7) Lymphocytes # (Auto) 2.0x10^3/uL (1.0-4.8) Monocytes # (Auto) 0.4x10^3/uL (0.0-1.1) Eosinophils # (Auto) 0.0x10^3/uL (0.0-0.7) Basophils # (Auto) 0.0x10^3/uL (0.0-0.2) Sodium Level 150mmol/L (136-145) Potassium Level 5.0mmol/L (3.5-5.1) Chloride Level 115mmol/L (98-107) Carbon Dioxide Level 26mmol/L (21-32) Anion Gap 9 (6-14) Blood Urea Nitrogen 33mg/dL (8-26) Creatinine 1.4mg/dL (0.7-1.3) Estimated GFR (Cockcroft-Gault) 59.5 Glucose Level 104mg/dL (70-99) Calcium Level 8.1mg/dL (8.5-10.1) Assessment/Plan Assessment/Plan pSBO, gi bleed, hematemesis hgb drifted down now 7.8, although no further hematemesis and peg contents without blood MS recent xlap continue bowel rest, g tube to LIS may need to transfer back to if continued obstructed symptoms or Hgb continued to drop THERESA CRUZ MD 09/01/16 0958: CONSULT Allergies Allergies: Coded Allergies: Penicillins (Verified Allergy, Intermediate, 08/31/16) adhesive tape (Verified Allergy, Intermediate, 08/31/16) Assessment/Plan Assessment/Plan Patient seen and examined. He is noncommunicative. Resting comfortably. G tube with minimal bilious output no blood. Abd is soft, ND NT. Agree with Timur's assessment and plan. Continue bowel rest, supportive care. Would recommend transfer to if condition worsens. RONALD LOUIS APRN Sep 01, 2016 09:03 THERESA CRUZ MD Sep 01, 2016 09:58
[2016-09-01] MEDS ORDERED: AA 3%/ELECTROLYTE-TPN SOLN/GLY 1,000 ML IV SCH (12:45)
[2016-09-01] MEDS ORDERED: MORPHINE SULFATE 2 MG/ML DISP.SYRIN. IV PRN (12:45)
[2016-09-01] MEDS ORDERED: ACETAMINOPHEN 325 MG TABLET. PO PRN (12:45)
[2016-09-01] MEDS ORDERED: OXYCODONE/APAP 5/325 TABLET. PEG PRN (12:45)
[2016-09-01] MEDS ORDERED: ONDANSETRON PF 4 MG/2 ML VIAL. IV PRN (12:45)
[2016-09-01] MEDS: CYANOCOBALAMIN (VITAMIN B-12) 1,000 MCG TABLET. PEG SCH (13:00)
[2016-09-01] MEDS: AMLODIPINE BESYLATE 5 MG TABLET PEG SCH (13:00)
[2016-09-01] MEDS: FERROUS SULFATE ORAL 300 MG/5 ML SOLUTION. PEG SCH (13:21)
[2016-09-01] MEDS: CHOLECALCIFEROL (VITAMIN D3) 1,000 UNIT TABLET PEG SCH (13:21)
[2016-09-01] MEDS: PANTOPRAZOLE IV PUSH 40 MG VIAL. IVP SCH (13:50)
[2016-09-01] MEDS: TIMOLOL 0.5% OPHTH SOLUTION 5ML BOTTLE. OU SCH (13:53)
[2016-09-01] MEDS: FENTANYL 100 MCG/HR TD SCH (13:53)
[2016-09-01] MEDS: IV 1/2 NORMAL SALINE 1,000 ML IV SCH ×2 (13:54→22:45)
[2016-09-01] MEDS: MORPHINE SULFATE 4 MG/ML DISP.SYRIN. IV PRN (14:01)
--- NOTE | 2016-09-01 14:33 | PDOC1 ---
History and Physical Date of Admission Date of Admission 08/31/16 Identification/Chief Complaint Chief Complaint coffee ground liquid from PEG Problems: Source Source: Chart review History of Present Illness History of Present Illness HPI HPI Patient is a 75 year old male who presents with hematemesis. Pt is not communicative to me, might say yes or no then keep saying"mmmmm". as per ERP, patient was transferred to the emergency department from [facility] in [place], [place] due to hematemesis that started over the last 3 days. 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 Post-operatively, he had NV and resp failure, was intubated , and had PEG placed endoscopically. His daughter provided history and reported that he has been able to eat by mouth at his senior living beginning on 08/29. After PO restarted, the nurse there described some coffee-ground emesis. His daughter says he was brought to the [facility] ER due to red eyes, sweats, and heavy breathing. The ER note suggests that coffee-ground material was coming out of his PEG tube, now it is green. Patient admits that he has pain in his abdomen to nurse. CT showed sbo. Past Medical History Past Medical History MS, GI Bleeding, blind Past Surgical History: Other Past Surgical History Past Surgical History: Cataract Removal, Other (laparotomy, egd, peg placement) Family History Family History: Other (noncontributory to current illness) Social History Smoke: No ALCOHOL: none Drugs: None Current Problem List Problem List Problems Medical Problems: (1) Quadriplegia Status: Acute (2) SBO (small bowel obstruction) Status: Acute (3) Severe protein-calorie malnutrition Status: Acute (4) Upper GI bleed Status: Acute (5) UTI (urinary tract infection) Status: Acute Current Medications Current Medications Current Medications Medications (Trade) Dose Ordered Sig/Doris Start Time Stop Time Status Last Admin Dose Admin Acetaminophen (Tylenol) 650 mg PRN Q6HRS PRN 09/01/16 12:45 Amino Acids/ Glycerin/ Electrolytes (Procalamine) 1,000 ml @ 80 mls/hr [id number] 09/01/16 12:45 09/01/16 12:45 DC Amlodipine Besylate (Norvasc) 5 mg DAILY 2/17/17 13:00 Ascorbic Acid (Vitamin C) 500 mg DAILY 09/02/16 09:00 Atorvastatin Calcium (Lipitor) 80 mg QHS 09/01/16 21:00 Cyanocobalamin (Vitamin B-12) 1,000 mcg DAILY 09/01/16 13:00 Fentanyl (Duragesic 100mcg/Hr Patch) 1 patch Q72H 09/01/16 12:45 09/01/16 13:53 1 PATCH Ferrous Sulfate 300 mg DAILY 09/01/16 17:00 Iohexol (Omnipaque 300 Mg/ml) 60 ml 1X ONCE 08/31/16 20:30 08/31/16 20:31 DC 08/31/16 20:30 60 ML Levofloxacin/ Dextrose (LEVAQUIN 250mg PREMIX) 50 ml @ 50 mls/hr Q24H 09/01/16 22:00 Levofloxacin/ Dextrose 1 each 1 each PRN DAILY PRN 08/31/16 21:15 Morphine Sulfate 4 mg 4 mg PRN Q2HR PRN 09/01/16 12:45 09/01/16 14:01 4 MG Ondansetron HCl (Zofran) 4 mg PRN Q6HRS PRN 09/01/16 12:45 Ondansetron HCl 4 mg 4 mg PRN Q8HRS PRN 08/31/16 23:30 09/01/16 23:29 09/01/16 08:42 4 MG Oxycodone/ Acetaminophen (Percocet 5/325) 1 tab PRN Q4HRS PRN 09/01/16 12:45 Pantoprazole Sodium (Protonix Vial) 40 mg 1X ONCE 08/31/16 19:15 08/31/16 19:17 DC 08/31/16 19:57 40 MG Pantoprazole Sodium 40 mg 40 mg DAILYAC 09/01/16 14:00 09/01/16 13:50 40 MG Pantoprazole Sodium 80 mg/ Sodium Chloride 100 ml @ 10 mls/hr 1X ONCE 08/31/16 23:00 09/01/16 08:59 DC 09/01/16 00:14 10 MLS/HR Sodium Chloride (Iv Sodium Chloride 0.45%) 1,000 ml @ 100 mls/hr Q10H 09/01/16 12:45 09/01/16 13:54 100 MLS/HR Sodium Chloride (Iv Sodium Chloride 0.9% 1000ml Bag) 1,000 ml @ 100 mls/hr Q10H 08/31/16 23:26 09/01/16 12:36 DC 09/01/16 00:13 100 MLS/HR Timolol Maleate (Timoptic 0.5% Ophth) 1 drop DAILY 09/01/16 14:00 09/01/16 13:53 1 DROP Vitamin D (Vitamin D3) 1,000 unit DAILY 09/01/16 14:00 Zolpidem Tartrate (Ambien) 5 mg HS 09/01/16 21:00 Allergies Allergies Allergies Coded Allergies Type Severity Reaction Last Updated Verified Penicillins Allergy Intermediate 08/31/16 Yes adhesive tape Allergy Intermediate 08/31/16 Yes ROS Review of System CONSTITUTIONAL: No fever or chills EYES: No recent changes SKIN: No rash or itching CARDIOVASCULAR: No chest pain, syncope, palpitations, or edema RESPIRATORY: No SOB or cough GASTROINTESTINAL: No nausea, vomiting or abdominal pain NEUROLOGICAL: No headaches or weakness ENDOCRINE: No cold or heat intolerance GENITOURINARY: No urgency or frequency of urination MUSCULOSKELETAL: No back pain or joint pain LYMPHATICS: No enlarged lymph nodes PSYCHIATRIC: No anxiety or depression Physical Exam Physical Exam GEN.: No apparent distress. Alert , answering questions as "yepmmmmm", quadriplegia HEENT: Head is normocephalic, atraumatic NECK: Supple. LUNGS: Clear to auscultation. HEART: RRR, S1, S2 present. Peripheral pulses intact ABDOMEN: Soft, nontender. Positive bowel sounds. PEG, mild distended ABD. PEG connected to suction, with green liquid. EXTREMITIES: Without any cyanosis. NEUROLOGIC: Normal speech, normal tone PSYCHIATRIC: Normal affect, normal mood. SKIN: No ulcerations Vitals Vitals Vital Signs Date Time Temp Pulse Resp B/P Pulse Ox O2 Delivery O2 Flow Rate FiO2 09/01/16 14:01 16 Nasal Cannula 3.0 09/01/16 13:00 79 101/60 09/01/16 07:00 97.4 100 97.4 Labs Labs Laboratory Tests Test 08/31/16 18:34 08/31/16 19:05 08/31/16 20:20 08/31/16 20:40 Urine Collection Type U cath Urine Color Yellow Urine Clarity Turbid Urine pH 5.0 Urine Specific Carman 1.025 Urine Protein 100mg/dL (NEG-TRACE) Urine Glucose (UA) Negativemg/dL (NEG) Urine Ketones (Stick) Negativemg/dL (NEG) Urine Blood Large (NEG) Urine Nitrite Negative (NEG) Urine Bilirubin Negative (NEG) Urine Urobilinogen Dipstick 0.2mg/dL (0.2 mg/dL) Urine Leukocyte Esterase Large (NEG) Urine RBC Occ/HPF (0-2) Urine WBC Tntc/HPF (0-4) Urine Squamous Epithelial Cells None/LPF Urine Bacteria Many/HPF (0-FEW) White Blood Count 15.4x10^3/uL (4.0-11.0) Red Blood Count 2.95x10^6/uL (4.30-5.70) Hemoglobin 9.3g/dL (13.0-17.5) Hematocrit 30.1% (39.0-53.0) Mean Corpuscular Volume 102fL (79-100) Mean Corpuscular Hemoglobin 32pg (25-35) Mean Corpuscular Hemoglobin Concent 31g/dL (31-37) Red Cell Distribution Width 20.0% (11.5-14.5) Platelet Count 368x10^3/uL (140-400) Neutrophils (%) (Auto) 89% (31-73) Lymphocytes (%) (Auto) 8% (24-48) Monocytes (%) (Auto) 3% (0-9) Eosinophils (%) (Auto) 0% (0-3) Basophils (%) (Auto) 0% (0-3) Neutrophils # (Auto) 13.8x10^3uL (1.8-7.7) Lymphocytes # (Auto) 1.2x10^3/uL (1.0-4.8) Monocytes # (Auto) 0.4x10^3/uL (0.0-1.1) Eosinophils # (Auto) 0.0x10^3/uL (0.0-0.7) Basophils # (Auto) 0.0x10^3/uL (0.0-0.2) Segmented Neutrophils % 82% (35-66) Band Neutrophils % 9% (0-9) Lymphocytes % 6% (24-48) Monocytes % 3% (0-10) Platelet Estimate Adequate (ADEQUATE) Polychromasia Slight Anisocytosis Mod Macrocytosis Slight Sodium Level 146mmol/L (136-145) Potassium Level 4.8mmol/L (3.5-5.1) Chloride Level 109mmol/L (98-107) Carbon Dioxide Level 26mmol/L (21-32) Anion Gap 11 (6-14) Blood Urea Nitrogen 35mg/dL (8-26) Creatinine 1.5mg/dL (0.7-1.3) Estimated GFR (Cockcroft-Gault) 54.9 BUN/Creatinine Ratio 23 (6-20) Glucose Level 144mg/dL (70-99) Lactic Acid Level 1.9mmol/L (0.4-2.0) Calcium Level 9.0mg/dL (8.5-10.1) Total Bilirubin 0.2mg/dL (0.2-1.0) Aspartate Amino Transf (AST/SGOT) 23U/L (15-37) Alanine Aminotransferase (ALT/SGPT) 19U/L (16-63) Alkaline Phosphatase 77U/L (46-116) Creatine Kinase 79U/L (39-308) Creatine Kinase MB (Mass) 2.2ng/mL (0.0-3.6) Creatine Kinase MB Relative Index 2.8% (0-4) Troponin I Quantitative 0.034ng/mL (0.000-0.055) Total Protein 8.5g/dL (6.4-8.2) Albumin 2.4g/dL (3.4-5.0) Albumin/Globulin Ratio 0.4 (1.0-1.7) Prothrombin Time 14.7SEC (11.7-14.0) Prothromb Time International Ratio 1.2 (0.8-1.1) Activated Partial Thromboplast Time 40SEC (24-38) Stool Occult Blood Negative (NEG) Test 09/01/16 07:21 White Blood Count 9.6x10^3/uL (4.0-11.0) Red Blood Count 2.44x10^6/uL (4.30-5.70) Hemoglobin 7.8g/dL (13.0-17.5) Hematocrit 25.9% (39.0-53.0) Mean Corpuscular Volume 106fL (79-100) Mean Corpuscular Hemoglobin 32pg (25-35) Mean Corpuscular Hemoglobin Concent 30g/dL (31-37) Red Cell Distribution Width 20.1% (11.5-14.5) Platelet Count 285x10^3/uL (140-400) Neutrophils (%) (Auto) 75% (31-73) Lymphocytes (%) (Auto) 21% (24-48) Monocytes (%) (Auto) 4% (0-9) Eosinophils (%) (Auto) 0% (0-3) Basophils (%) (Auto) 0% (0-3) Neutrophils # (Auto) 7.1x10^3uL (1.8-7.7) Lymphocytes # (Auto) 2.0x10^3/uL (1.0-4.8) Monocytes # (Auto) 0.4x10^3/uL (0.0-1.1) Eosinophils # (Auto) 0.0x10^3/uL (0.0-0.7) Basophils # (Auto) 0.0x10^3/uL (0.0-0.2) Sodium Level 150mmol/L (136-145) Potassium Level 5.0mmol/L (3.5-5.1) Chloride Level 115mmol/L (98-107) Carbon Dioxide Level 26mmol/L (21-32) Anion Gap 9 (6-14) Blood Urea Nitrogen 33mg/dL (8-26) Creatinine 1.4mg/dL (0.7-1.3) Estimated GFR (Cockcroft-Gault) 59.5 Glucose Level 104mg/dL (70-99) Calcium Level 8.1mg/dL (8.5-10.1) Laboratory Tests Test 08/31/16 18:34 08/31/16 19:05 08/31/16 20:20 08/31/16 20:40 Urine Collection Type U cath Urine Color Yellow Urine Clarity Turbid Urine pH 5.0 Urine Specific Carman 1.025 Urine Protein 100mg/dL (NEG-TRACE) Urine Glucose (UA) Negativemg/dL (NEG) Urine Ketones (Stick) Negativemg/dL (NEG) Urine Blood Large (NEG) Urine Nitrite Negative (NEG) Urine Bilirubin Negative (NEG) Urine Urobilinogen Dipstick 0.2mg/dL (0.2 mg/dL) Urine Leukocyte Esterase Large (NEG) Urine RBC Occ/HPF (0-2) Urine WBC Tntc/HPF (0-4) Urine Squamous Epithelial Cells None/LPF Urine Bacteria Many/HPF (0-FEW) White Blood Count 15.4x10^3/uL (4.0-11.0) Red Blood Count 2.95x10^6/uL (4.30-5.70) Hemoglobin 9.3g/dL (13.0-17.5) Hematocrit 30.1% (39.0-53.0) Mean Corpuscular Volume 102fL (79-100) Mean Corpuscular Hemoglobin 32pg (25-35) Mean Corpuscular Hemoglobin Concent 31g/dL (31-37) Red Cell Distribution Width 20.0% (11.5-14.5) Platelet Count 368x10^3/uL (140-400) Neutrophils (%) (Auto) 89% (31-73) Lymphocytes (%) (Auto) 8% (24-48) Monocytes (%) (Auto) 3% (0-9) Eosinophils (%) (Auto) 0% (0-3) Basophils (%) (Auto) 0% (0-3) Neutrophils # (Auto) 13.8x10^3uL (1.8-7.7) Lymphocytes # (Auto) 1.2x10^3/uL (1.0-4.8) Monocytes # (Auto) 0.4x10^3/uL (0.0-1.1) Eosinophils # (Auto) 0.0x10^3/uL (0.0-0.7) Basophils # (Auto) 0.0x10^3/uL (0.0-0.2) Segmented Neutrophils % 82% (35-66) Band Neutrophils % 9% (0-9) Lymphocytes % 6% (24-48) Monocytes % 3% (0-10) Platelet Estimate Adequate (ADEQUATE) Polychromasia Slight Anisocytosis Mod Macrocytosis Slight Sodium Level 146mmol/L (136-145) Potassium Level 4.8mmol/L (3.5-5.1) Chloride Level 109mmol/L (98-107) Carbon Dioxide Level 26mmol/L (21-32) Anion Gap 11 (6-14) Blood Urea Nitrogen 35mg/dL (8-26) Creatinine 1.5mg/dL (0.7-1.3) Estimated GFR (Cockcroft-Gault) 54.9 BUN/Creatinine Ratio 23 (6-20) Glucose Level 144mg/dL (70-99) Lactic Acid Level 1.9mmol/L (0.4-2.0) Calcium Level 9.0mg/dL (8.5-10.1) Total Bilirubin 0.2mg/dL (0.2-1.0) Aspartate Amino Transf (AST/SGOT) 23U/L (15-37) Alanine Aminotransferase (ALT/SGPT) 19U/L (16-63) Alkaline Phosphatase 77U/L (46-116) Creatine Kinase 79U/L (39-308) Creatine Kinase MB (Mass) 2.2ng/mL (0.0-3.6) Creatine Kinase MB Relative Index 2.8% (0-4) Troponin I Quantitative 0.034ng/mL (0.000-0.055) Total Protein 8.5g/dL (6.4-8.2) Albumin 2.4g/dL (3.4-5.0) Albumin/Globulin Ratio 0.4 (1.0-1.7) Prothrombin Time 14.7SEC (11.7-14.0) Prothromb Time International Ratio 1.2 (0.8-1.1) Activated Partial Thromboplast Time 40SEC (24-38) Stool Occult Blood Negative (NEG) Test 09/01/16 07:21 White Blood Count 9.6x10^3/uL (4.0-11.0) Red Blood Count 2.44x10^6/uL (4.30-5.70) Hemoglobin 7.8g/dL (13.0-17.5) Hematocrit 25.9% (39.0-53.0) Mean Corpuscular Volume 106fL (79-100) Mean Corpuscular Hemoglobin 32pg (25-35) Mean Corpuscular Hemoglobin Concent 30g/dL (31-37) Red Cell Distribution Width 20.1% (11.5-14.5) Platelet Count 285x10^3/uL (140-400) Neutrophils (%) (Auto) 75% (31-73) Lymphocytes (%) (Auto) 21% (24-48) Monocytes (%) (Auto) 4% (0-9) Eosinophils (%) (Auto) 0% (0-3) Basophils (%) (Auto) 0% (0-3) Neutrophils # (Auto) 7.1x10^3uL (1.8-7.7) Lymphocytes # (Auto) 2.0x10^3/uL (1.0-4.8) Monocytes # (Auto) 0.4x10^3/uL (0.0-1.1) Eosinophils # (Auto) 0.0x10^3/uL (0.0-0.7) Basophils # (Auto) 0.0x10^3/uL (0.0-0.2) Sodium Level 150mmol/L (136-145) Potassium Level 5.0mmol/L (3.5-5.1) Chloride Level 115mmol/L (98-107) Carbon Dioxide Level 26mmol/L (21-32) Anion Gap 9 (6-14) Blood Urea Nitrogen 33mg/dL (8-26) Creatinine 1.4mg/dL (0.7-1.3) Estimated GFR (Cockcroft-Gault) 59.5 Glucose Level 104mg/dL (70-99) Calcium Level 8.1mg/dL (8.5-10.1) VTE Prophylaxis Ordered VTE Prophylaxis Devices: Yes VTE Pharmacological Prophylaxi: No Assessment/Plan Assessment/Plan 1. 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 reCENT NV WO PCI 4. dementia with MS 5. QUadriplegia 6. 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 SEVERE malnutrition 10. hypernatremia 11. bl blind plan: 1. npo, 1/2 NS now 2. PEG to suction 3. gi, sx consulted, ob for now, AXR 4. hold po meds since PEG held labs tmr cbc daily gi ppx iv levaquin for now, dc AISHWARYA Kumari MD Sep 01, 2016 14:33
[2016-09-01] MEDS: ZOLPIDEM 5 MG TABLET. PO SCH (21:00)
[2016-09-01] MEDS: ATORVASTATIN CALCIUM 40 MG TABLET. PO SCH (21:00)
[2016-09-02] VITALS (7 sets, daily range): BP systolic 91–137; BP diastolic 51–74
[2016-09-02] MEDS: IV 1/2 NORMAL SALINE 1,000 ML IV SCH ×2 (00:29→10:42)
[2016-09-02] MEDS: PANTOPRAZOLE IV PUSH 40 MG VIAL. IVP SCH (05:41)
[2016-09-02 06:55] LABS: BASO % 0 % (0-3); EOS % 1 % (0-3); HEMATOCRIT 28.6 % (39.0-53.0); HEMOGLOBIN 8.6 g/dL (13.0-17.5); LYMPH # 1.2 x10^3/uL (1.0-4.8); LYMPH % 17 % (24-48); MEAN CORPUSCULAR HEMOGLOBIN 31 pg (25-35); MEAN CORPUSCULAR HGB CONC 30 g/dL (31-37); MEAN CORPUSCULAR VOLUME 104 fL (79-100); MONO % 7 % (0-9); NEUT % 76 % (31-73); PLATELET COUNT 240 x10^3/uL (140-400); RED BLOOD COUNT 2.76 x10^6/uL (4.30-5.70); RED CELL DISTRIBUTION WIDTH 20.8 % (11.5-14.5)
[2016-09-02] MEDS: FERROUS SULFATE ORAL 300 MG/5 ML SOLUTION. PEG SCH (08:11)
[2016-09-02] MEDS: TIMOLOL 0.5% OPHTH SOLUTION 5ML BOTTLE. OU SCH (08:11)
[2016-09-02] MEDS: CHOLECALCIFEROL (VITAMIN D3) 1,000 UNIT TABLET PEG SCH (08:12)
[2016-09-02] MEDS: ASCORBIC ACID 500 MG TABLET PEG SCH (08:12)
[2016-09-02] MEDS: AMLODIPINE BESYLATE 5 MG TABLET PEG SCH (08:12)
[2016-09-02] MEDS: CYANOCOBALAMIN (VITAMIN B-12) 1,000 MCG TABLET. PEG SCH (08:12)
--- NOTE | 2016-09-02 10:40 | PDOC ---
Objective: Vital Signs: Vital Signs Date Time Temp Pulse Resp B/P Pulse Ox O2 Delivery O2 Flow Rate FiO2 09/02/16 08:20 Nasal Cannula 3.0 09/02/16 07:00 97.9 69 20 91/69 99 97.9 Labs: Laboratory Tests Test 09/02/16 06:35 White Blood Count 7.0x10^3/uL (4.0-11.0) Red Blood Count 2.76x10^6/uL (4.30-5.70) Hemoglobin 8.6g/dL (13.0-17.5) Hematocrit 28.6% (39.0-53.0) Mean Corpuscular Volume 104fL (79-100) Mean Corpuscular Hemoglobin 31pg (25-35) Mean Corpuscular Hemoglobin Concent 30g/dL (31-37) Red Cell Distribution Width 20.8% (11.5-14.5) Platelet Count 240x10^3/uL (140-400) Neutrophils (%) (Auto) 76% (31-73) Lymphocytes (%) (Auto) 17% (24-48) Monocytes (%) (Auto) 7% (0-9) Eosinophils (%) (Auto) 1% (0-3) Basophils (%) (Auto) 0% (0-3) Neutrophils # (Auto) 5.3x10^3uL (1.8-7.7) Lymphocytes # (Auto) 1.2x10^3/uL (1.0-4.8) Monocytes # (Auto) 0.5x10^3/uL (0.0-1.1) Eosinophils # (Auto) 0.0x10^3/uL (0.0-0.7) Basophils # (Auto) 0.0x10^3/uL (0.0-0.2) Physical Exam: Physical Exam: PE: GEN: NAD HEENT: Atraumatic LUNGS: decreased anteriorly HEART: RRR ABD: BS+, soft, non-tender, PEG in place w/ green contents on suction, recent lap scar EXTREMITY: No edema SKIN: No rashes NEURO/PSYCH: awake, speaks Assessment & Plan: Assessment : A/P: A/P: S/p laparotomy and PEG placement -at , surgery showed neuroendocrine tumor, post-op course was complicated w/ resp failure, MD ?hematemesis, abd pain -after resuming PO intake earlier this week, described by [facility] nurse -PEG contents now green Partial SBO -on CT as above Anemia -Hgb 9.3 to 7.8 now 8.8 after prbcs Plan: monitor labs and PEG output Problems: MICHAELLE COTTO MD Sep 02, 2016 10:40
[2016-09-02 11:54] LABS: CREATININE 1.2 mg/dL (0.7-1.3); POTASSIUM 5.2 mmol/L (3.5-5.1)
--- NOTE | 2016-09-02 12:08 | PDOC ---
PROGRESS NOTES Subjective Subjective pt states he "hurts" Objective Objective Vital Signs Date Time Temp Pulse Resp B/P Pulse Ox O2 Delivery O2 Flow Rate FiO2 09/02/16 11:00 97.4 69 20 111/65 100 Nasal Cannula 2.0 97.4 Intake and Output 09/02/16 07:00 Intake Total 2361 ml Output Total 800 ml Balance 1561 ml Intake Oral 0 ml IV Total 1771 ml Blood Product IV Normal Saline Flush 590 ml Output Urine Total 800 ml Physical Exam Abdomen: Soft, Other (Gtube with bilious fluid, mildly distended, reports tenderness with palpation) General: Alert HEENT: Atraumatic Lungs: Clear to auscultation Assessment Assessment Problems Medical Problems: (1) Quadriplegia Status: Acute (2) SBO (small bowel obstruction) Status: Acute (3) Severe protein-calorie malnutrition Status: Acute (4) Upper GI bleed Status: Acute (5) UTI (urinary tract infection) Status: Acute Plan Plan of Care PSBO?, hematemesis, No bowel function recorded, would continue bowel rest and gastric decompression Comment Review of Relevant I have reviewed the following items juan f (where applicable) has been applied. Labs Laboratory Tests Test 08/31/16 18:34 08/31/16 19:05 08/31/16 20:20 08/31/16 20:40 Urine Collection Type U cath Urine Color Yellow Urine Clarity Turbid Urine pH 5.0 Urine Specific [place] 1.025 Urine Protein 100mg/dL (NEG-TRACE) Urine Glucose (UA) Negativemg/dL (NEG) Urine Ketones (Stick) Negativemg/dL (NEG) Urine Blood Large (NEG) Urine Nitrite Negative (NEG) Urine Bilirubin Negative (NEG) Urine Urobilinogen Dipstick 0.2mg/dL (0.2 mg/dL) Urine Leukocyte Esterase Large (NEG) Urine RBC Occ/HPF (0-2) Urine WBC Tntc/HPF (0-4) Urine Squamous Epithelial Cells None/LPF Urine Bacteria Many/HPF (0-FEW) White Blood Count 15.4x10^3/uL (4.0-11.0) Red Blood Count 2.95x10^6/uL (4.30-5.70) Hemoglobin 9.3g/dL (13.0-17.5) Hematocrit 30.1% (39.0-53.0) Mean Corpuscular Volume 102fL (79-100) Mean Corpuscular Hemoglobin 32pg (25-35) Mean Corpuscular Hemoglobin Concent 31g/dL (31-37) Red Cell Distribution Width 20.0% (11.5-14.5) Platelet Count 368x10^3/uL (140-400) Neutrophils (%) (Auto) 89% (31-73) Lymphocytes (%) (Auto) 8% (24-48) Monocytes (%) (Auto) 3% (0-9) Eosinophils (%) (Auto) 0% (0-3) Basophils (%) (Auto) 0% (0-3) Neutrophils # (Auto) 13.8x10^3uL (1.8-7.7) Lymphocytes # (Auto) 1.2x10^3/uL (1.0-4.8) Monocytes # (Auto) 0.4x10^3/uL (0.0-1.1) Eosinophils # (Auto) 0.0x10^3/uL (0.0-0.7) Basophils # (Auto) 0.0x10^3/uL (0.0-0.2) Segmented Neutrophils % 82% (35-66) Band Neutrophils % 9% (0-9) Lymphocytes % 6% (24-48) Monocytes % 3% (0-10) Platelet Estimate Adequate (ADEQUATE) Polychromasia Slight Anisocytosis Mod Macrocytosis Slight Sodium Level 146mmol/L (136-145) Potassium Level 4.8mmol/L (3.5-5.1) Chloride Level 109mmol/L (98-107) Carbon Dioxide Level 26mmol/L (21-32) Anion Gap 11 (6-14) Blood Urea Nitrogen 35mg/dL (8-26) Creatinine 1.5mg/dL (0.7-1.3) Estimated GFR (Cockcroft-Gault) 54.9 BUN/Creatinine Ratio 23 (6-20) Glucose Level 144mg/dL (70-99) Lactic Acid Level 1.9mmol/L (0.4-2.0) Calcium Level 9.0mg/dL (8.5-10.1) Total Bilirubin 0.2mg/dL (0.2-1.0) Aspartate Amino Transf (AST/SGOT) 23U/L (15-37) Alanine Aminotransferase (ALT/SGPT) 19U/L (16-63) Alkaline Phosphatase 77U/L (46-116) Creatine Kinase 79U/L (39-308) Creatine Kinase MB (Mass) 2.2ng/mL (0.0-3.6) Creatine Kinase MB Relative Index 2.8% (0-4) Troponin I Quantitative 0.034ng/mL (0.000-0.055) Total Protein 8.5g/dL (6.4-8.2) Albumin 2.4g/dL (3.4-5.0) Albumin/Globulin Ratio 0.4 (1.0-1.7) Prothrombin Time 14.7SEC (11.7-14.0) Prothromb Time International Ratio 1.2 (0.8-1.1) Activated Partial Thromboplast Time 40SEC (24-38) Stool Occult Blood Negative (NEG) Test 09/01/16 06:25 09/01/16 07:21 09/02/16 06:35 Nasal Screen MRSA (PCR) Positive (Negative) White Blood Count 9.6x10^3/uL (4.0-11.0) 7.0x10^3/uL (4.0-11.0) Red Blood Count 2.44x10^6/uL (4.30-5.70) 2.76x10^6/uL (4.30-5.70) Hemoglobin 7.8g/dL (13.0-17.5) 8.6g/dL (13.0-17.5) Hematocrit 25.9% (39.0-53.0) 28.6% (39.0-53.0) Mean Corpuscular Volume 106fL (79-100) 104fL (79-100) Mean Corpuscular Hemoglobin 32pg (25-35) 31pg (25-35) Mean Corpuscular Hemoglobin Concent 30g/dL (31-37) 30g/dL (31-37) Red Cell Distribution Width 20.1% (11.5-14.5) 20.8% (11.5-14.5) Platelet Count 285x10^3/uL (140-400) 240x10^3/uL (140-400) Neutrophils (%) (Auto) 75% (31-73) 76% (31-73) Lymphocytes (%) (Auto) 21% (24-48) 17% (24-48) Monocytes (%) (Auto) 4% (0-9) 7% (0-9) Eosinophils (%) (Auto) 0% (0-3) 1% (0-3) Basophils (%) (Auto) 0% (0-3) 0% (0-3) Neutrophils # (Auto) 7.1x10^3uL (1.8-7.7) 5.3x10^3uL (1.8-7.7) Lymphocytes # (Auto) 2.0x10^3/uL (1.0-4.8) 1.2x10^3/uL (1.0-4.8) Monocytes # (Auto) 0.4x10^3/uL (0.0-1.1) 0.5x10^3/uL (0.0-1.1) Eosinophils # (Auto) 0.0x10^3/uL (0.0-0.7) 0.0x10^3/uL (0.0-0.7) Basophils # (Auto) 0.0x10^3/uL (0.0-0.2) 0.0x10^3/uL (0.0-0.2) Sodium Level 150mmol/L (136-145) 150mmol/L (136-145) Potassium Level 5.0mmol/L (3.5-5.1) 5.2mmol/L (3.5-5.1) Chloride Level 115mmol/L (98-107) 117mmol/L (98-107) Carbon Dioxide Level 26mmol/L (21-32) 24mmol/L (21-32) Anion Gap 9 (6-14) 9 (6-14) Blood Urea Nitrogen 33mg/dL (8-26) 26mg/dL (8-26) Creatinine 1.4mg/dL (0.7-1.3) 1.2mg/dL (0.7-1.3) Estimated GFR (Cockcroft-Gault) 59.5 71.0 Glucose Level 104mg/dL (70-99) 90mg/dL (70-99) Calcium Level 8.1mg/dL (8.5-10.1) 8.0mg/dL (8.5-10.1) Laboratory Tests Test 09/02/16 06:35 White Blood Count 7.0x10^3/uL (4.0-11.0) Red Blood Count 2.76x10^6/uL (4.30-5.70) Hemoglobin 8.6g/dL (13.0-17.5) Hematocrit 28.6% (39.0-53.0) Mean Corpuscular Volume 104fL (79-100) Mean Corpuscular Hemoglobin 31pg (25-35) Mean Corpuscular Hemoglobin Concent 30g/dL (31-37) Red Cell Distribution Width 20.8% (11.5-14.5) Platelet Count 240x10^3/uL (140-400) Neutrophils (%) (Auto) 76% (31-73) Lymphocytes (%) (Auto) 17% (24-48) Monocytes (%) (Auto) 7% (0-9) Eosinophils (%) (Auto) 1% (0-3) Basophils (%) (Auto) 0% (0-3) Neutrophils # (Auto) 5.3x10^3uL (1.8-7.7) Lymphocytes # (Auto) 1.2x10^3/uL (1.0-4.8) Monocytes # (Auto) 0.5x10^3/uL (0.0-1.1) Eosinophils # (Auto) 0.0x10^3/uL (0.0-0.7) Basophils # (Auto) 0.0x10^3/uL (0.0-0.2) Sodium Level 150mmol/L (136-145) Potassium Level 5.2mmol/L (3.5-5.1) Chloride Level 117mmol/L (98-107) Carbon Dioxide Level 24mmol/L (21-32) Anion Gap 9 (6-14) Blood Urea Nitrogen 26mg/dL (8-26) Creatinine 1.2mg/dL (0.7-1.3) Estimated GFR (Cockcroft-Gault) 71.0 Glucose Level 90mg/dL (70-99) Calcium Level 8.0mg/dL (8.5-10.1) Microbiology 08/31/16 Blood Culture - Preliminary, Resulted NO GROWTH AFTER 1 DAY 08/31/16 Urine Culture - Preliminary, Resulted 08/31/16 Urine Culture Result 1 (HOANG) - Preliminary, Resulted Medications Current Medications Sodium Chloride (Iv Sodium Chloride 0.9% 1000ml Bag) 1,000 ml @ 1,000 mls/hr Q1H IV Last administered on 08/31/16 20:01; Start 08/31/16 at 19:13; Stop at 20:12; Status DC Ondansetron HCl (Zofran) 4 mg 1X ONCE IV Last administered on 08/31/16 19:58 ; Start 08/31/16 at 19:15; Stop 08/31/16 at 19:17; Status DC Pantoprazole Sodium (Protonix Vial) 40 mg 1X ONCE IVP Last administered on 19:57; Start 08/31/16 at 19:15; Stop 08/31/16 at 19:17; Status DC Iohexol (Omnipaque 300 Mg/ml) 60 ml 1X ONCE IV Last administered on 08/31/16 20:30; Start 08/31/16 at 20:30; Stop 08/31/16 at 20:31; Status DC Levofloxacin/ Dextrose 1 each 1 each PRN DAILY PRN MC SEE COMMENTS; Start 08/31 at 21:15 Levofloxacin/ Dextrose 150 ml @ 100 mls/hr 1X ONCE IV Last administered on 21:51; Start 08/31/16 at 22:00; Stop 08/31/16 at 23:29; Status DC Pantoprazole Sodium 80 mg/ Sodium Chloride 100 ml @ 10 mls/hr 1X ONCE IV Last administered on 09/01/16 00:14; Start 08/31/16 at 23:00; Stop 09/01/16 at 08:59; Status DC Levofloxacin/ Dextrose (LEVAQUIN 250mg PREMIX) 50 ml @ 50 mls/hr Q24H IV Last administered on 09/01/16 21:01; Start 09/01/16 at 22:00 Ondansetron HCl 4 mg 4 mg PRN Q8HRS PRN IV NAUSEA/VOMITING Last administered on 09/01/16 18:26; Start 08/31/16 at 23:30; Stop 09/01/16 at 23:29; Status DC Sodium Chloride (Iv Sodium Chloride 0.9% 1000ml Bag) 1,000 ml @ 100 mls/hr Q10H IV Last administered on 09/01/16 00:13; Start 08/31/16 at 23:26; Stop at 12:36; Status DC Morphine Sulfate 2 mg PRN Q2HR PRN IV SEVERE PAIN Last administered on 18:27; Start 09/01/16 at 03:15 Acetaminophen (Tylenol) 650 mg PRN Q6HRS PRN PO PAIN; Start 09/01/16 at 12:45 Amlodipine Besylate (Norvasc) 5 mg DAILY PEG ; Start 09/01/16 at 13:00 Ascorbic Acid (Vitamin C) 500 mg DAILY PEG ; Start 09/02/16 at 09:00 Cyanocobalamin (Vitamin B-12) 1,000 mcg DAILY PEG ; Start 09/01/16 at 13:00 Fentanyl (Duragesic 100mcg/Hr Patch) 1 patch Q72H TD Last administered on 13:53; Start 09/01/16 at 12:45 Ferrous Sulfate 300 mg DAILY PEG ; Start 09/01/16 at 17:00 Oxycodone/ Acetaminophen (Percocet 5/325) 1 tab PRN Q4HRS PRN PEG PAIN; Start 09/01/16 at 12:45 Timolol Maleate (Timoptic 0.5% Oph) 1 drop DAILY OU Last administered on 09/02 08:11; Start 09/01/16 at 14:00 Zolpidem Tartrate (Ambien) 5 mg HS PO ; Start 09/01/16 at 21:00 Atorvastatin Calcium (Lipitor) 80 mg QHS PO ; Start 09/01/16 at 21:00 Vitamin D (Vitamin D3) 1,000 unit DAILY PEG ; Start 09/01/16 at 14:00 Pantoprazole Sodium 40 mg 40 mg DAILYAC IVP Last administered on 09/02/16 05: 41; Start 09/01/16 at 14:00 Amino Acids/ Glycerin/ Electrolytes (Procalamine) 1,000 ml @ 80 mls/hr [id number] IV ; Start 09/01/16 at 12:45; Stop 09/01/16 at 12:45; Status DC Ondansetron HCl (Zofran) 4 mg PRN Q6HRS PRN IV NAUSEA/VOMITING; Start 09/01/16 at 12:45 Morphine Sulfate 2 mg PRN Q2HR PRN IV PAIN; Start 09/01/16 at 12:45; Stop 09/01 at 14:46; Status DC Morphine Sulfate 4 mg 4 mg PRN Q2HR PRN IV PAIN Last administered on 09/01/16 14:01; Start 09/01/16 at 12:45 Sodium Chloride (Iv Sodium Chloride 0.45%) 1,000 ml @ 100 mls/hr Q10H IV Last administered on 09/02/16 10:42; Start 09/01/16 at 12:45 Active Scripts Active Reported Timolol Maleate 10 Ml Drops 1 Drop LEFTEYE DAILY Zolpidem Tartrate 5 Mg Tablet 5 Mg PO HS Percocet 5-325 Mg Tablet (Oxycodone/Acetaminophen) 1 Each Tablet 1 Tab PEG PRN Q4HRS PRN Oxybutynin Chloride 5 Mg/5 Ml Syrup 5 Mg PO BID Ferrous Sulfate 325 Mg Tablet 300 Mg PEG DAILY DURAGESIC 100mcg/hr (Fentanyl) 1 Each Patch.td72 1 Patch TD Q72H Lovenox (Enoxaparin Sodium) 40 Mg/0.4 Ml Disp.syrin 40 Mg SQ HS Vitamin B-12 (Cyanocobalamin (Vitamin B-12)) 1,000 Mcg Tablet 1,000 Mcg SL DAILY Just D (Cholecalciferol (Vitamin D3)) 400 Unit/1 Ml Drops 400 Unit PEG DAILY Atorvastatin Calcium 80 Mg Tablet 80 Mg PEG HS Aspirin 81 Mg Tab.chew 81 Mg PEG DAILY Ascorbic Acid 500 Mg Tablet 500 Mg PEG DAILY Amlodipine Besylate 5 Mg Tablet 5 Mg PEG DAILY Tylenol (Acetaminophen) 325 Mg Tablet 650 Mg PEG PRN PRN Vitals/I & O Vital Sign - Last 24 Hours 09/01/16 09/01/16 09/01/16 09/01/16 12:31 13:00 13:53 14:01 Pulse 79 Resp 16 16 16 B/P 101/60 O2 Delivery Nasal Cannula Nasal Cannula O2 Flow Rate 3.0 3.0 3.0 09/01/16 09/01/16 09/01/16 09/01/16 15:00 18:27 19:47 20:15 Temp 97.4 97.7 97.4 97.7 Pulse 67 68 Resp 18 20 20 B/P 83/44 93/46 Pulse Ox 99 100 O2 Delivery Nasal Cannula Nasal Cannula Nasal Cannula Nasal Cannula O2 Flow Rate 3.0 3.0 2.0 2.0 09/01/16 09/01/16 09/01/16 09/01/16 21:00 21:01 21:01 22:05 Temp 97.7 97.7 Pulse 68 Resp 20 B/P 93/46 O2 Delivery Nasal Cannula Nasal Cannula Nasal Cannula 09/01/16 09/01/16 09/01/16 09/02/16 22:20 23:20 23:30 00:26 Temp 96.7 97.8 97.5 96.7 97.8 97.5 Pulse 68 68 70 73 Resp 20 20 20 18 B/P 88/47 76/44 76/46 94/51 Pulse Ox 98 09/02/16 09/02/16 09/02/16 09/02/16 03:10 07:00 08:20 11:00 Temp 97.5 97.9 97.4 97.5 97.9 97.4 Pulse 69 69 69 Resp 20 20 20 B/P 137/74 91/69 111/65 Pulse Ox 99 99 100 O2 Delivery Nasal Cannula Nasal Cannula Nasal Cannula Nasal Cannula O2 Flow Rate 2.0 2.0 3.0 2.0 Intake and Output 09/01/16 09/01/16 09/02/16 15:00 23:00 07:00 Intake Total 1550 ml 811 ml Output Total 300 ml 500 ml Balance 1250 ml 311 ml STANLEY YATES MD Sep 02, 2016 12:08
--- NOTE | 2016-09-02 14:25 | PDOC ---
PROGRESS NOTES Chief Complaint Chief Complaint 1. 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 reCENT VA WO PCI 4. dementia with MS 5. QUadriplegia 6. 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 SEVERE malnutrition 10. 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 npo,change to d5 now 2. PEG to suction 3. gi, sx consulted, ob for now, AXR 4. hold po meds since PEG held labs tmr cbc daily gi ppx iv levaquin for now, dc soon History of Present Illness History of Present Illness NON communicative, say " good morning", then mumbling still high Na 150 hB STABLE post 1u PRBC NO BM, PEG suction green Vitals Vitals Vital Signs Date Time Temp Pulse Resp B/P Pulse Ox O2 Delivery O2 Flow Rate FiO2 09/02/16 11:00 97.4 69 20 111/65 100 Nasal Cannula 2.0 97.4 Physical Exam General: Alert Heart: Regular rate, Normal S1, Normal S2 Abdomen: Soft, Other (Gtube with bilious fluid, mildly distended, reports tenderness with palpation) Extremities: No edema Skin: No rashes, No breakdown Labs LABS Laboratory Tests Test 09/02/16 06:35 White Blood Count 7.0x10^3/uL (4.0-11.0) Red Blood Count 2.76x10^6/uL (4.30-5.70) Hemoglobin 8.6g/dL (13.0-17.5) Hematocrit 28.6% (39.0-53.0) Mean Corpuscular Volume 104fL (79-100) Mean Corpuscular Hemoglobin 31pg (25-35) Mean Corpuscular Hemoglobin Concent 30g/dL (31-37) Red Cell Distribution Width 20.8% (11.5-14.5) Platelet Count 240x10^3/uL (140-400) Neutrophils (%) (Auto) 76% (31-73) Lymphocytes (%) (Auto) 17% (24-48) Monocytes (%) (Auto) 7% (0-9) Eosinophils (%) (Auto) 1% (0-3) Basophils (%) (Auto) 0% (0-3) Neutrophils # (Auto) 5.3x10^3uL (1.8-7.7) Lymphocytes # (Auto) 1.2x10^3/uL (1.0-4.8) Monocytes # (Auto) 0.5x10^3/uL (0.0-1.1) Eosinophils # (Auto) 0.0x10^3/uL (0.0-0.7) Basophils # (Auto) 0.0x10^3/uL (0.0-0.2) Sodium Level 150mmol/L (136-145) Potassium Level 5.2mmol/L (3.5-5.1) Chloride Level 117mmol/L (98-107) Carbon Dioxide Level 24mmol/L (21-32) Anion Gap 9 (6-14) Blood Urea Nitrogen 26mg/dL (8-26) Creatinine 1.2mg/dL (0.7-1.3) Estimated GFR (Cockcroft-Gault) 71.0 Glucose Level 90mg/dL (70-99) Calcium Level 8.0mg/dL (8.5-10.1) Review of Systems Review of Systems no fever, chills, sob or chest pain Assessment and Plan Assessmemt and Plan Problems Medical Problems: (1) Quadriplegia Status: Acute (2) SBO (small bowel obstruction) Status: Acute (3) Severe protein-calorie malnutrition Status: Acute (4) Upper GI bleed Status: Acute (5) UTI (urinary tract infection) Status: Acute Problems: Comment Review of Relevant I have reviewed the following items juan f (where applicable) has been applied. Labs Laboratory Tests Test 08/31/16 18:34 08/31/16 19:05 08/31/16 20:20 08/31/16 20:40 Urine Collection Type U cath Urine Color Yellow Urine Clarity Turbid Urine pH 5.0 Urine Specific [place] 1.025 Urine Protein 100mg/dL (NEG-TRACE) Urine Glucose (UA) Negativemg/dL (NEG) Urine Ketones (Stick) Negativemg/dL (NEG) Urine Blood Large (NEG) Urine Nitrite Negative (NEG) Urine Bilirubin Negative (NEG) Urine Urobilinogen Dipstick 0.2mg/dL (0.2 mg/dL) Urine Leukocyte Esterase Large (NEG) Urine RBC Occ/HPF (0-2) Urine WBC Tntc/HPF (0-4) Urine Squamous Epithelial Cells None/LPF Urine Bacteria Many/HPF (0-FEW) White Blood Count 15.4x10^3/uL (4.0-11.0) Red Blood Count 2.95x10^6/uL (4.30-5.70) Hemoglobin 9.3g/dL (13.0-17.5) Hematocrit 30.1% (39.0-53.0) Mean Corpuscular Volume 102fL (79-100) Mean Corpuscular Hemoglobin 32pg (25-35) Mean Corpuscular Hemoglobin Concent 31g/dL (31-37) Red Cell Distribution Width 20.0% (11.5-14.5) Platelet Count 368x10^3/uL (140-400) Neutrophils (%) (Auto) 89% (31-73) Lymphocytes (%) (Auto) 8% (24-48) Monocytes (%) (Auto) 3% (0-9) Eosinophils (%) (Auto) 0% (0-3) Basophils (%) (Auto) 0% (0-3) Neutrophils # (Auto) 13.8x10^3uL (1.8-7.7) Lymphocytes # (Auto) 1.2x10^3/uL (1.0-4.8) Monocytes # (Auto) 0.4x10^3/uL (0.0-1.1) Eosinophils # (Auto) 0.0x10^3/uL (0.0-0.7) Basophils # (Auto) 0.0x10^3/uL (0.0-0.2) Segmented Neutrophils % 82% (35-66) Band Neutrophils % 9% (0-9) Lymphocytes % 6% (24-48) Monocytes % 3% (0-10) Platelet Estimate Adequate (ADEQUATE) Polychromasia Slight Anisocytosis Mod Macrocytosis Slight Sodium Level 146mmol/L (136-145) Potassium Level 4.8mmol/L (3.5-5.1) Chloride Level 109mmol/L (98-107) Carbon Dioxide Level 26mmol/L (21-32) Anion Gap 11 (6-14) Blood Urea Nitrogen 35mg/dL (8-26) Creatinine 1.5mg/dL (0.7-1.3) Estimated GFR (Cockcroft-Gault) 54.9 BUN/Creatinine Ratio 23 (6-20) Glucose Level 144mg/dL (70-99) Lactic Acid Level 1.9mmol/L (0.4-2.0) Calcium Level 9.0mg/dL (8.5-10.1) Total Bilirubin 0.2mg/dL (0.2-1.0) Aspartate Amino Transf (AST/SGOT) 23U/L (15-37) Alanine Aminotransferase (ALT/SGPT) 19U/L (16-63) Alkaline Phosphatase 77U/L (46-116) Creatine Kinase 79U/L (39-308) Creatine Kinase MB (Mass) 2.2ng/mL (0.0-3.6) Creatine Kinase MB Relative Index 2.8% (0-4) Troponin I Quantitative 0.034ng/mL (0.000-0.055) Total Protein 8.5g/dL (6.4-8.2) Albumin 2.4g/dL (3.4-5.0) Albumin/Globulin Ratio 0.4 (1.0-1.7) Prothrombin Time 14.7SEC (11.7-14.0) Prothromb Time International Ratio 1.2 (0.8-1.1) Activated Partial Thromboplast Time 40SEC (24-38) Stool Occult Blood Negative (NEG) Test 09/01/16 06:25 09/01/16 07:21 09/02/16 06:35 Nasal Screen MRSA (PCR) Positive (Negative) White Blood Count 9.6x10^3/uL (4.0-11.0) 7.0x10^3/uL (4.0-11.0) Red Blood Count 2.44x10^6/uL (4.30-5.70) 2.76x10^6/uL (4.30-5.70) Hemoglobin 7.8g/dL (13.0-17.5) 8.6g/dL (13.0-17.5) Hematocrit 25.9% (39.0-53.0) 28.6% (39.0-53.0) Mean Corpuscular Volume 106fL (79-100) 104fL (79-100) Mean Corpuscular Hemoglobin 32pg (25-35) 31pg (25-35) Mean Corpuscular Hemoglobin Concent 30g/dL (31-37) 30g/dL (31-37) Red Cell Distribution Width 20.1% (11.5-14.5) 20.8% (11.5-14.5) Platelet Count 285x10^3/uL (140-400) 240x10^3/uL (140-400) Neutrophils (%) (Auto) 75% (31-73) 76% (31-73) Lymphocytes (%) (Auto) 21% (24-48) 17% (24-48) Monocytes (%) (Auto) 4% (0-9) 7% (0-9) Eosinophils (%) (Auto) 0% (0-3) 1% (0-3) Basophils (%) (Auto) 0% (0-3) 0% (0-3) Neutrophils # (Auto) 7.1x10^3uL (1.8-7.7) 5.3x10^3uL (1.8-7.7) Lymphocytes # (Auto) 2.0x10^3/uL (1.0-4.8) 1.2x10^3/uL (1.0-4.8) Monocytes # (Auto) 0.4x10^3/uL (0.0-1.1) 0.5x10^3/uL (0.0-1.1) Eosinophils # (Auto) 0.0x10^3/uL (0.0-0.7) 0.0x10^3/uL (0.0-0.7) Basophils # (Auto) 0.0x10^3/uL (0.0-0.2) 0.0x10^3/uL (0.0-0.2) Sodium Level 150mmol/L (136-145) 150mmol/L (136-145) Potassium Level 5.0mmol/L (3.5-5.1) 5.2mmol/L (3.5-5.1) Chloride Level 115mmol/L (98-107) 117mmol/L (98-107) Carbon Dioxide Level 26mmol/L (21-32) 24mmol/L (21-32) Anion Gap 9 (6-14) 9 (6-14) Blood Urea Nitrogen 33mg/dL (8-26) 26mg/dL (8-26) Creatinine 1.4mg/dL (0.7-1.3) 1.2mg/dL (0.7-1.3) Estimated GFR (Cockcroft-Gault) 59.5 71.0 Glucose Level 104mg/dL (70-99) 90mg/dL (70-99) Calcium Level 8.1mg/dL (8.5-10.1) 8.0mg/dL (8.5-10.1) Laboratory Tests Test 09/02/16 06:35 White Blood Count 7.0x10^3/uL (4.0-11.0) Red Blood Count 2.76x10^6/uL (4.30-5.70) Hemoglobin 8.6g/dL (13.0-17.5) Hematocrit 28.6% (39.0-53.0) Mean Corpuscular Volume 104fL (79-100) Mean Corpuscular Hemoglobin 31pg (25-35) Mean Corpuscular Hemoglobin Concent 30g/dL (31-37) Red Cell Distribution Width 20.8% (11.5-14.5) Platelet Count 240x10^3/uL (140-400) Neutrophils (%) (Auto) 76% (31-73) Lymphocytes (%) (Auto) 17% (24-48) Monocytes (%) (Auto) 7% (0-9) Eosinophils (%) (Auto) 1% (0-3) Basophils (%) (Auto) 0% (0-3) Neutrophils # (Auto) 5.3x10^3uL (1.8-7.7) Lymphocytes # (Auto) 1.2x10^3/uL (1.0-4.8) Monocytes # (Auto) 0.5x10^3/uL (0.0-1.1) Eosinophils # (Auto) 0.0x10^3/uL (0.0-0.7) Basophils # (Auto) 0.0x10^3/uL (0.0-0.2) Sodium Level 150mmol/L (136-145) Potassium Level 5.2mmol/L (3.5-5.1) Chloride Level 117mmol/L (98-107) Carbon Dioxide Level 24mmol/L (21-32) Anion Gap 9 (6-14) Blood Urea Nitrogen 26mg/dL (8-26) Creatinine 1.2mg/dL (0.7-1.3) Estimated GFR (Cockcroft-Gault) 71.0 Glucose Level 90mg/dL (70-99) Calcium Level 8.0mg/dL (8.5-10.1) Microbiology 08/31/16 Blood Culture - Preliminary, Resulted NO GROWTH AFTER 1 DAY 08/31/16 Urine Culture - Preliminary, Resulted 08/31/16 Urine Culture Result 1 (HOANG) - Preliminary, Resulted Medications Current Medications Sodium Chloride (Iv Sodium Chloride 0.9% 1000ml Bag) 1,000 ml @ 1,000 mls/hr Q1H IV Last administered on 08/31/16 20:01; Start 08/31/16 at 19:13; Stop at 20:12; Status DC Ondansetron HCl (Zofran) 4 mg 1X ONCE IV Last administered on 08/31/16 19:58 ; Start 08/31/16 at 19:15; Stop 08/31/16 at 19:17; Status DC Pantoprazole Sodium (Protonix Vial) 40 mg 1X ONCE IVP Last administered on 19:57; Start 08/31/16 at 19:15; Stop 08/31/16 at 19:17; Status DC Iohexol (Omnipaque 300 Mg/ml) 60 ml 1X ONCE IV Last administered on 08/31/16 20:30; Start 08/31/16 at 20:30; Stop 08/31/16 at 20:31; Status DC Levofloxacin/ Dextrose 1 each 1 each PRN DAILY PRN MC SEE COMMENTS; Start 08/31 at 21:15 Levofloxacin/ Dextrose 150 ml @ 100 mls/hr 1X ONCE IV Last administered on 21:51; Start 08/31/16 at 22:00; Stop 08/31/16 at 23:29; Status DC Pantoprazole Sodium 80 mg/ Sodium Chloride 100 ml @ 10 mls/hr 1X ONCE IV Last administered on 09/01/16 00:14; Start 08/31/16 at 23:00; Stop 09/01/16 at 08:59; Status DC Levofloxacin/ Dextrose (LEVAQUIN 250mg PREMIX) 50 ml @ 50 mls/hr Q24H IV Last administered on 09/01/16 21:01; Start 09/01/16 at 22:00 Ondansetron HCl 4 mg 4 mg PRN Q8HRS PRN IV NAUSEA/VOMITING Last administered on 09/01/16 18:26; Start 08/31/16 at 23:30; Stop 09/01/16 at 23:29; Status DC Sodium Chloride (Iv Sodium Chloride 0.9% 1000ml Bag) 1,000 ml @ 100 mls/hr Q10H IV Last administered on 09/01/16 00:13; Start 08/31/16 at 23:26; Stop at 12:36; Status DC Morphine Sulfate 2 mg PRN Q2HR PRN IV SEVERE PAIN Last administered on 18:27; Start 09/01/16 at 03:15 Acetaminophen (Tylenol) 650 mg PRN Q6HRS PRN PO PAIN; Start 09/01/16 at 12:45 Amlodipine Besylate (Norvasc) 5 mg DAILY PEG ; Start 09/01/16 at 13:00 Ascorbic Acid (Vitamin C) 500 mg DAILY PEG ; Start 09/02/16 at 09:00 Cyanocobalamin (Vitamin B-12) 1,000 mcg DAILY PEG ; Start 09/01/16 at 13:00 Fentanyl (Duragesic 100mcg/Hr Patch) 1 patch Q72H TD Last administered on 13:53; Start 09/01/16 at 12:45 Ferrous Sulfate 300 mg DAILY PEG ; Start 09/01/16 at 17:00 Oxycodone/ Acetaminophen (Percocet 5/325) 1 tab PRN Q4HRS PRN PEG PAIN; Start 09/01/16 at 12:45 Timolol Maleate (Timoptic 0.5% Oph) 1 drop DAILY OU Last administered on 09/02 08:11; Start 09/01/16 at 14:00 Zolpidem Tartrate (Ambien) 5 mg HS PO ; Start 09/01/16 at 21:00 Atorvastatin Calcium (Lipitor) 80 mg QHS PO ; Start 09/01/16 at 21:00 Vitamin D (Vitamin D3) 1,000 unit DAILY PEG ; Start 09/01/16 at 14:00 Pantoprazole Sodium 40 mg 40 mg DAILYAC IVP Last administered on 09/02/16t 05: 41; Start 09/01/16 at 14:00 Amino Acids/ Glycerin/ Electrolytes (Procalamine) 1,000 ml @ 80 mls/hr [id number] IV ; Start 09/01/16 at 12:45; Stop 09/01/16 at 12:45; Status DC Ondansetron HCl (Zofran) 4 mg PRN Q6HRS PRN IV NAUSEA/VOMITING; Start 09/01/16 at 12:45 Morphine Sulfate 2 mg PRN Q2HR PRN IV PAIN; Start 09/01/16 at 12:45; Stop 09/01 at 14:46; Status DC Morphine Sulfate 4 mg 4 mg PRN Q2HR PRN IV PAIN Last administered on 09/01/16 14:01; Start 09/01/16 at 12:45 Sodium Chloride 1,000 ml @ 100 mls/hr Q10H IV Last administered on 09/02/16 10:42; Start 09/01/16 at 12:45; Stop 09/02/16 at 12:27; Status DC Dextrose 1,000 ml @ 100 mls/hr Q10H IV ; Start 09/02/16 at 13:00 Active Scripts Active Reported Timolol Maleate 10 Ml Drops 1 Drop LEFTEYE DAILY Zolpidem Tartrate 5 Mg Tablet 5 Mg PO HS Percocet 5-325 Mg Tablet (Oxycodone/Acetaminophen) 1 Each Tablet 1 Tab PEG PRN Q4HRS PRN Oxybutynin Chloride 5 Mg/5 Ml Syrup 5 Mg PO BID Ferrous Sulfate 325 Mg Tablet 300 Mg PEG DAILY DURAGESIC 100mcg/hr (Fentanyl) 1 Each Patch.td72 1 Patch TD Q72H Lovenox (Enoxaparin Sodium) 40 Mg/0.4 Ml Disp.syrin 40 Mg SQ HS Vitamin B-12 (Cyanocobalamin (Vitamin B-12)) 1,000 Mcg Tablet 1,000 Mcg SL DAILY Just D (Cholecalciferol (Vitamin D3)) 400 Unit/1 Ml Drops 400 Unit PEG DAILY Atorvastatin Calcium 80 Mg Tablet 80 Mg PEG HS Aspirin 81 Mg Tab.chew 81 Mg PEG DAILY Ascorbic Acid 500 Mg Tablet 500 Mg PEG DAILY Amlodipine Besylate 5 Mg Tablet 5 Mg PEG DAILY Tylenol (Acetaminophen) 325 Mg Tablet 650 Mg PEG PRN PRN Vitals/I & O Vital Sign - Last 24 Hours 09/01/16 09/01/16 09/01/16 09/01/16 15:00 18:27 19:47 20:15 Temp 97.4 97.7 97.4 97.7 Pulse 67 68 Resp 18 20 20 B/P 83/44 93/46 Pulse Ox 99 100 O2 Delivery Nasal Cannula Nasal Cannula Nasal Cannula Nasal Cannula O2 Flow Rate 3.0 3.0 2.0 2.0 09/01/16 09/01/16 09/01/16 09/01/16 21:00 21:01 21:01 22:05 Temp 97.7 97.7 Pulse 68 Resp 20 B/P 93/46 O2 Delivery Nasal Cannula Nasal Cannula Nasal Cannula 09/01/16 09/01/16 09/01/16 09/02/16 22:20 23:20 23:30 00:26 Temp 96.7 97.8 97.5 96.7 97.8 97.5 Pulse 68 68 70 73 Resp 20 20 20 18 B/P 88/47 76/44 76/46 94/51 Pulse Ox 98 09/02/16 09/02/16 09/02/16 09/02/16 03:10 07:00 08:20 11:00 Temp 97.5 97.9 97.4 97.5 97.9 97.4 Pulse 69 69 69 Resp 20 20 20 B/P 137/74 91/69 111/65 Pulse Ox 99 99 100 O2 Delivery Nasal Cannula Nasal Cannula Nasal Cannula Nasal Cannula O2 Flow Rate 2.0 2.0 3.0 2.0 Intake and Output 09/01/16 09/01/16 09/02/16 15:00 23:00 07:00 Intake Total 1550 ml 811 ml Output Total 300 ml 500 ml Balance 1250 ml 311 ml AISHWARYA ZABALA MD Sep 02, 2016 14:25
[2016-09-02] MEDS: IV DEXTROSE 5% 1,000 ML IV SCH (15:41)
[2016-09-02] MEDS: ZOLPIDEM 5 MG TABLET. PO SCH (20:47)
[2016-09-02] MEDS: ATORVASTATIN CALCIUM 40 MG TABLET. PO SCH (20:47)
[2016-09-03] MEDS: IV DEXTROSE 5% 1,000 ML IV SCH ×3 (02:50→23:15)
[2016-09-03 03:33] VITALS: BP 121/59
[2016-09-03 06:48] LABS: BASO % 0 % (0-3); EOS % 0 % (0-3); HEMATOCRIT 28.6 % (39.0-53.0); HEMOGLOBIN 8.7 g/dL (13.0-17.5); LYMPH % 14 % (24-48); MEAN CORPUSCULAR HEMOGLOBIN 31 pg (25-35); MEAN CORPUSCULAR HGB CONC 30 g/dL (31-37); MEAN CORPUSCULAR VOLUME 104 fL (79-100); MONO % 6 % (0-9); NEUT % 80 % (31-73); PLATELET COUNT 232 x10^3/uL (140-400); RED BLOOD COUNT 2.75 x10^6/uL (4.30-5.70); RED CELL DISTRIBUTION WIDTH 21.1 % (11.5-14.5)
[2016-09-03 06:57] LABS: CALCIUM 8.1 mg/dL (8.5-10.1); CREATININE 1.1 mg/dL (0.7-1.3); GFR 78.5
[2016-09-03 07:00] VITALS: BP 113/55
[2016-09-03] MEDS: CHOLECALCIFEROL (VITAMIN D3) 1,000 UNIT TABLET PEG SCH (09:00)
[2016-09-03] MEDS: FERROUS SULFATE ORAL 300 MG/5 ML SOLUTION. PEG SCH (09:00)
[2016-09-03] MEDS: CYANOCOBALAMIN (VITAMIN B-12) 1,000 MCG TABLET. PEG SCH (09:00)
[2016-09-03] MEDS: AMLODIPINE BESYLATE 5 MG TABLET PEG SCH (09:00)
[2016-09-03] MEDS: ASCORBIC ACID 500 MG TABLET PEG SCH (09:00)
[2016-09-03] MEDS: PANTOPRAZOLE IV PUSH 40 MG VIAL. IVP SCH (09:04)
[2016-09-03] MEDS: TIMOLOL 0.5% OPHTH SOLUTION 5ML BOTTLE. OU SCH (09:05)
--- NOTE | 2016-09-03 09:59 | PDOC ---
PROGRESS NOTES Subjective Subjective appears more comfortable today, denies pain Objective Objective Vital Signs Date Time Temp Pulse Resp B/P Pulse Ox O2 Delivery O2 Flow Rate FiO2 09/03/16 08:00 Nasal Cannula 3.0 09/03/16 07:00 99.5 89 20 113/55 100 99.5 Intake and Output 09/03/16 07:00 Intake Total 0 ml Output Total 1075 ml Balance -1075 ml Intake Oral 0 ml Output Urine Total 975 ml Gastric Drainage Total 100 ml Physical Exam Abdomen: Soft (no pain today with palpation) Extremities: No clubbing, No cyanosis General: Alert Assessment Assessment Problems Medical Problems: (1) Quadriplegia Status: Acute (2) SBO (small bowel obstruction) Status: Acute (3) Severe protein-calorie malnutrition Status: Acute (4) Upper GI bleed Status: Acute (5) UTI (urinary tract infection) Status: Acute Plan Plan of Care Clinically improved, will check films in AM, if also improved then may be able to consider restart TF Comment Review of Relevant I have reviewed the following items juan f (where applicable) has been applied. Labs Laboratory Tests Test 09/02/16 06:35 09/03/16 05:25 White Blood Count 7.0x10^3/uL (4.0-11.0) 7.0x10^3/uL (4.0-11.0) Red Blood Count 2.76x10^6/uL (4.30-5.70) 2.75x10^6/uL (4.30-5.70) Hemoglobin 8.6g/dL (13.0-17.5) 8.7g/dL (13.0-17.5) Hematocrit 28.6% (39.0-53.0) 28.6% (39.0-53.0) Mean Corpuscular Volume 104fL (79-100) 104fL (79-100) Mean Corpuscular Hemoglobin 31pg (25-35) 31pg (25-35) Mean Corpuscular Hemoglobin Concent 30g/dL (31-37) 30g/dL (31-37) Red Cell Distribution Width 20.8% (11.5-14.5) 21.1% (11.5-14.5) Platelet Count 240x10^3/uL (140-400) 232x10^3/uL (140-400) Neutrophils (%) (Auto) 76% (31-73) 80% (31-73) Lymphocytes (%) (Auto) 17% (24-48) 14% (24-48) Monocytes (%) (Auto) 7% (0-9) 6% (0-9) Eosinophils (%) (Auto) 1% (0-3) 0% (0-3) Basophils (%) (Auto) 0% (0-3) 0% (0-3) Neutrophils # (Auto) 5.3x10^3uL (1.8-7.7) 5.6x10^3uL (1.8-7.7) Lymphocytes # (Auto) 1.2x10^3/uL (1.0-4.8) 1.0x10^3/uL (1.0-4.8) Monocytes # (Auto) 0.5x10^3/uL (0.0-1.1) 0.4x10^3/uL (0.0-1.1) Eosinophils # (Auto) 0.0x10^3/uL (0.0-0.7) 0.0x10^3/uL (0.0-0.7) Basophils # (Auto) 0.0x10^3/uL (0.0-0.2) 0.0x10^3/uL (0.0-0.2) Sodium Level 150mmol/L (136-145) 144mmol/L (136-145) Potassium Level 5.2mmol/L (3.5-5.1) 4.0mmol/L (3.5-5.1) Chloride Level 117mmol/L (98-107) 111mmol/L (98-107) Carbon Dioxide Level 24mmol/L (21-32) 24mmol/L (21-32) Anion Gap 9 (6-14) 9 (6-14) Blood Urea Nitrogen 26mg/dL (8-26) 17mg/dL (8-26) Creatinine 1.2mg/dL (0.7-1.3) 1.1mg/dL (0.7-1.3) Estimated GFR (Cockcroft-Gault) 71.0 78.5 Glucose Level 90mg/dL (70-99) 101mg/dL (70-99) Calcium Level 8.0mg/dL (8.5-10.1) 8.1mg/dL (8.5-10.1) Laboratory Tests Test 09/03/16 05:25 White Blood Count 7.0x10^3/uL (4.0-11.0) Red Blood Count 2.75x10^6/uL (4.30-5.70) Hemoglobin 8.7g/dL (13.0-17.5) Hematocrit 28.6% (39.0-53.0) Mean Corpuscular Volume 104fL (79-100) Mean Corpuscular Hemoglobin 31pg (25-35) Mean Corpuscular Hemoglobin Concent 30g/dL (31-37) Red Cell Distribution Width 21.1% (11.5-14.5) Platelet Count 232x10^3/uL (140-400) Neutrophils (%) (Auto) 80% (31-73) Lymphocytes (%) (Auto) 14% (24-48) Monocytes (%) (Auto) 6% (0-9) Eosinophils (%) (Auto) 0% (0-3) Basophils (%) (Auto) 0% (0-3) Neutrophils # (Auto) 5.6x10^3uL (1.8-7.7) Lymphocytes # (Auto) 1.0x10^3/uL (1.0-4.8) Monocytes # (Auto) 0.4x10^3/uL (0.0-1.1) Eosinophils # (Auto) 0.0x10^3/uL (0.0-0.7) Basophils # (Auto) 0.0x10^3/uL (0.0-0.2) Sodium Level 144mmol/L (136-145) Potassium Level 4.0mmol/L (3.5-5.1) Chloride Level 111mmol/L (98-107) Carbon Dioxide Level 24mmol/L (21-32) Anion Gap 9 (6-14) Blood Urea Nitrogen 17mg/dL (8-26) Creatinine 1.1mg/dL (0.7-1.3) Estimated GFR (Cockcroft-Gault) 78.5 Glucose Level 101mg/dL (70-99) Calcium Level 8.1mg/dL (8.5-10.1) Microbiology 08/31/16 Blood Culture - Preliminary, Resulted NO GROWTH AFTER 2 DAYS 08/31/16 Urine Culture - Final, Complete 08/31/16 Urine Culture Result 1 (HOANG) - Final, Complete 08/31/16 Antimicrobic Susceptibility - Final, Complete Medications Current Medications Sodium Chloride (Iv Sodium Chloride 0.9% 1000ml Bag) 1,000 ml @ 1,000 mls/hr Q1H IV Last administered on 08/31/16 20:01; Start 08/31/16 at 19:13; Stop at 20:12; Status DC Ondansetron HCl (Zofran) 4 mg 1X ONCE IV Last administered on 08/31/16 19:58 ; Start 08/31/16 at 19:15; Stop 08/31/16 at 19:17; Status DC Pantoprazole Sodium (Protonix Vial) 40 mg 1X ONCE IVP Last administered on 19:57; Start 08/31/16 at 19:15; Stop 08/31/16 at 19:17; Status DC Iohexol (Omnipaque 300 Mg/ml) 60 ml 1X ONCE IV Last administered on 08/31/16 20:30; Start 08/31/16 at 20:30; Stop 08/31/16 at 20:31; Status DC Levofloxacin/ Dextrose 1 each 1 each PRN DAILY PRN MC SEE COMMENTS; Start 08/31 at 21:15 Levofloxacin/ Dextrose 150 ml @ 100 mls/hr 1X ONCE IV Last administered on 21:51; Start 08/31/16 at 22:00; Stop 08/31/16 at 23:29; Status DC Pantoprazole Sodium 80 mg/ Sodium Chloride 100 ml @ 10 mls/hr 1X ONCE IV Last administered on 09/01/16 00:14; Start 08/31/16 at 23:00; Stop 09/01/16 at 08:59; Status DC Levofloxacin/ Dextrose (LEVAQUIN 250mg PREMIX) 50 ml @ 50 mls/hr Q24H IV Last administered on 09/02/16 21:07; Start 09/01/16 at 22:00 Ondansetron HCl 4 mg 4 mg PRN Q8HRS PRN IV NAUSEA/VOMITING Last administered on 09/01/16 18:26; Start 08/31/16 at 23:30; Stop 09/01/16 at 23:29; Status DC Sodium Chloride (Iv Sodium Chloride 0.9% 1000ml Bag) 1,000 ml @ 100 mls/hr Q10H IV Last administered on 09/01/16 00:13; Start 08/31/16 at 23:26; Stop at 12:36; Status DC Morphine Sulfate 2 mg PRN Q2HR PRN IV SEVERE PAIN Last administered on 18:27; Start 09/01/16 at 03:15 Acetaminophen (Tylenol) 650 mg PRN Q6HRS PRN PO PAIN; Start 09/01/16 at 12:45 Amlodipine Besylate (Norvasc) 5 mg DAILY PEG ; Start 09/01/16 at 13:00 Ascorbic Acid (Vitamin C) 500 mg DAILY PEG ; Start 09/02/16 at 09:00 Cyanocobalamin (Vitamin B-12) 1,000 mcg DAILY PEG ; Start 09/01/16 at 13:00 Fentanyl (Duragesic 100mcg/Hr Patch) 1 patch Q72H TD Last administered on 13:53; Start 09/01/16 at 12:45 Ferrous Sulfate 300 mg DAILY PEG ; Start 09/01/16 at 17:00 Oxycodone/ Acetaminophen (Percocet 5/325) 1 tab PRN Q4HRS PRN PEG PAIN; Start 09/01/16 at 12:45 Timolol Maleate (Timoptic 0.5% [facility]) 1 drop DAILY OU Last administered on 09/03 09:05; Start 09/01/16 at 14:00 Zolpidem Tartrate (Ambien) 5 mg HS PO ; Start 09/01/16 at 21:00 Atorvastatin Calcium (Lipitor) 80 mg QHS PO ; Start 09/01/16 at 21:00 Vitamin D (Vitamin D3) 1,000 unit DAILY PEG ; Start 09/01/16 at 14:00 Pantoprazole Sodium 40 mg 40 mg DAILYAC IVP Last administered on 09/03/16 09: 04; Start 09/01/16 at 14:00 Amino Acids/ Glycerin/ Electrolytes (Procalamine) 1,000 ml @ 80 mls/hr [id number] IV ; Start 09/01/16 at 12:45; Stop 09/01/16 at 12:45; Status DC Ondansetron HCl (Zofran) 4 mg PRN Q6HRS PRN IV NAUSEA/VOMITING; Start 09/01/16 at 12:45 Morphine Sulfate 2 mg PRN Q2HR PRN IV PAIN; Start 09/01/16 at 12:45; Stop 09/01 at 14:46; Status DC Morphine Sulfate 4 mg 4 mg PRN Q2HR PRN IV PAIN Last administered on 09/01/16 14:01; Start 09/01/16 at 12:45 Sodium Chloride 1,000 ml @ 100 mls/hr Q10H IV Last administered on 09/02/16 10:42; Start 09/01/16 at 12:45; Stop 09/02/16 at 12:27; Status DC Dextrose 1,000 ml @ 100 mls/hr Q10H IV Last administered on 09/03/16 02:50; Start 09/02/16 at 13:00 Active Scripts Active Reported Timolol Maleate 10 Ml Drops 1 Drop LEFTEYE DAILY Zolpidem Tartrate 5 Mg Tablet 5 Mg PO HS Percocet 5-325 Mg Tablet (Oxycodone/Acetaminophen) 1 Each Tablet 1 Tab PEG PRN Q4HRS PRN Oxybutynin Chloride 5 Mg/5 Ml Syrup 5 Mg PO BID Ferrous Sulfate 325 Mg Tablet 300 Mg PEG DAILY DURAGESIC 100mcg/hr (Fentanyl) 1 Each Patch.td72 1 Patch TD Q72H Lovenox (Enoxaparin Sodium) 40 Mg/0.4 Ml Disp.syrin 40 Mg SQ HS Vitamin B-12 (Cyanocobalamin (Vitamin B-12)) 1,000 Mcg Tablet 1,000 Mcg SL DAILY Just D (Cholecalciferol (Vitamin D3)) 400 Unit/1 Ml Drops 400 Unit PEG DAILY Atorvastatin Calcium 80 Mg Tablet 80 Mg PEG HS Aspirin 81 Mg Tab.chew 81 Mg PEG DAILY Ascorbic Acid 500 Mg Tablet 500 Mg PEG DAILY Amlodipine Besylate 5 Mg Tablet 5 Mg PEG DAILY Tylenol (Acetaminophen) 325 Mg Tablet 650 Mg PEG PRN PRN Vitals/I & O Vital Sign - Last 24 Hours 09/02/16 09/02/16 09/02/16 2/18/17 11:00 15:00 19:30 19:30 Temp 97.4 97.7 98.3 97.4 97.7 98.3 Pulse 69 68 79 Resp 20 20 20 B/P 111/65 99/54 112/62 Pulse Ox 100 100 99 O2 Delivery Nasal Cannula Nasal Cannula Room Air O2 Flow Rate 2.0 2.0 3.0 09/02/16 09/02/16 09/03/16 09/03/16 20:00 23:19 03:33 07:00 Temp 98.9 98.8 99.5 98.9 98.8 99.5 Pulse 83 79 89 Resp 18 18 20 B/P 109/56 121/59 113/55 Pulse Ox 98 93 100 O2 Delivery Nasal Cannula Nasal Cannula Nasal Cannula Nasal Cannula O2 Flow Rate 3.0 2.0 3.0 3.0 09/03/16 08:00 O2 Delivery Nasal Cannula O2 Flow Rate 3.0 Intake and Output 09/02/16 09/02/16 09/03/16 15:00 23:00 07:00 Intake Total 0 ml Output Total 675 ml 400 ml Balance -675 ml -400 ml STANLEY YATES MD Sep 03, 2016 09:59
[2016-09-03 11:00] VITALS: BP 132/88
[2016-09-03] MEDS: MORPHINE SULFATE 2 MG/ML DISP.SYRIN. IV PRN (11:52)
--- NOTE | 2016-09-03 12:05 | PDOC ---
PROGRESS NOTES Chief Complaint Chief Complaint 1. 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 reCENT [place] WO PCI 4. dementia with MS 5. QUadriplegia 6. 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 SEVERE malnutrition 10. 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 npo,change to d5 now 2. PEG to suction 3. gi, sx consulted, ob for now, AXR 4. hold po meds since PEG held labs tmr cbc daily gi ppx dc levaquin, since UCX resistent to levaquin anyway, doubt UTI, + ucx with chronic suprabupic puente. consider restart abx if fever or high wbc again. AXR as per sx tmr. History of Present Illness History of Present Illness NON communicative, say " good morning", then mumbling Na better 144 hB STABLE post 1u PRBC NO BM, PEG suction green Vitals Vitals Vital Signs Date Time Temp Pulse Resp B/P Pulse Ox O2 Delivery O2 Flow Rate FiO2 09/03/16 11:00 98.8 77 20 132/88 100 Nasal Cannula 3.0 98.8 Physical Exam General: Alert Heart: Regular rate, Normal S1, Normal S2 Abdomen: Soft (no pain today with palpation) Extremities: No clubbing, No cyanosis Skin: No rashes, No breakdown Labs LABS Laboratory Tests Test 09/03/16 05:25 White Blood Count 7.0x10^3/uL (4.0-11.0) Red Blood Count 2.75x10^6/uL (4.30-5.70) Hemoglobin 8.7g/dL (13.0-17.5) Hematocrit 28.6% (39.0-53.0) Mean Corpuscular Volume 104fL (79-100) Mean Corpuscular Hemoglobin 31pg (25-35) Mean Corpuscular Hemoglobin Concent 30g/dL (31-37) Red Cell Distribution Width 21.1% (11.5-14.5) Platelet Count 232x10^3/uL (140-400) Neutrophils (%) (Auto) 80% (31-73) Lymphocytes (%) (Auto) 14% (24-48) Monocytes (%) (Auto) 6% (0-9) Eosinophils (%) (Auto) 0% (0-3) Basophils (%) (Auto) 0% (0-3) Neutrophils # (Auto) 5.6x10^3uL (1.8-7.7) Lymphocytes # (Auto) 1.0x10^3/uL (1.0-4.8) Monocytes # (Auto) 0.4x10^3/uL (0.0-1.1) Eosinophils # (Auto) 0.0x10^3/uL (0.0-0.7) Basophils # (Auto) 0.0x10^3/uL (0.0-0.2) Sodium Level 144mmol/L (136-145) Potassium Level 4.0mmol/L (3.5-5.1) Chloride Level 111mmol/L (98-107) Carbon Dioxide Level 24mmol/L (21-32) Anion Gap 9 (6-14) Blood Urea Nitrogen 17mg/dL (8-26) Creatinine 1.1mg/dL (0.7-1.3) Estimated GFR (Cockcroft-Gault) 78.5 Glucose Level 101mg/dL (70-99) Calcium Level 8.1mg/dL (8.5-10.1) Review of Systems Review of Systems no fever, chills, sob or chest pain Assessment and Plan Assessmemt and Plan Problems Medical Problems: (1) Quadriplegia Status: Acute (2) SBO (small bowel obstruction) Status: Acute (3) Severe protein-calorie malnutrition Status: Acute (4) Upper GI bleed Status: Acute (5) UTI (urinary tract infection) Status: Acute Problems: Comment Review of Relevant I have reviewed the following items juan f (where applicable) has been applied. Labs Laboratory Tests Test 09/02/16 06:35 09/03/16 05:25 White Blood Count 7.0x10^3/uL (4.0-11.0) 7.0x10^3/uL (4.0-11.0) Red Blood Count 2.76x10^6/uL (4.30-5.70) 2.75x10^6/uL (4.30-5.70) Hemoglobin 8.6g/dL (13.0-17.5) 8.7g/dL (13.0-17.5) Hematocrit 28.6% (39.0-53.0) 28.6% (39.0-53.0) Mean Corpuscular Volume 104fL (79-100) 104fL (79-100) Mean Corpuscular Hemoglobin 31pg (25-35) 31pg (25-35) Mean Corpuscular Hemoglobin Concent 30g/dL (31-37) 30g/dL (31-37) Red Cell Distribution Width 20.8% (11.5-14.5) 21.1% (11.5-14.5) Platelet Count 240x10^3/uL (140-400) 232x10^3/uL (140-400) Neutrophils (%) (Auto) 76% (31-73) 80% (31-73) Lymphocytes (%) (Auto) 17% (24-48) 14% (24-48) Monocytes (%) (Auto) 7% (0-9) 6% (0-9) Eosinophils (%) (Auto) 1% (0-3) 0% (0-3) Basophils (%) (Auto) 0% (0-3) 0% (0-3) Neutrophils # (Auto) 5.3x10^3uL (1.8-7.7) 5.6x10^3uL (1.8-7.7) Lymphocytes # (Auto) 1.2x10^3/uL (1.0-4.8) 1.0x10^3/uL (1.0-4.8) Monocytes # (Auto) 0.5x10^3/uL (0.0-1.1) 0.4x10^3/uL (0.0-1.1) Eosinophils # (Auto) 0.0x10^3/uL (0.0-0.7) 0.0x10^3/uL (0.0-0.7) Basophils # (Auto) 0.0x10^3/uL (0.0-0.2) 0.0x10^3/uL (0.0-0.2) Sodium Level 150mmol/L (136-145) 144mmol/L (136-145) Potassium Level 5.2mmol/L (3.5-5.1) 4.0mmol/L (3.5-5.1) Chloride Level 117mmol/L (98-107) 111mmol/L (98-107) Carbon Dioxide Level 24mmol/L (21-32) 24mmol/L (21-32) Anion Gap 9 (6-14) 9 (6-14) Blood Urea Nitrogen 26mg/dL (8-26) 17mg/dL (8-26) Creatinine 1.2mg/dL (0.7-1.3) 1.1mg/dL (0.7-1.3) Estimated GFR (Cockcroft-Gault) 71.0 78.5 Glucose Level 90mg/dL (70-99) 101mg/dL (70-99) Calcium Level 8.0mg/dL (8.5-10.1) 8.1mg/dL (8.5-10.1) Laboratory Tests Test 09/03/16 05:25 White Blood Count 7.0x10^3/uL (4.0-11.0) Red Blood Count 2.75x10^6/uL (4.30-5.70) Hemoglobin 8.7g/dL (13.0-17.5) Hematocrit 28.6% (39.0-53.0) Mean Corpuscular Volume 104fL (79-100) Mean Corpuscular Hemoglobin 31pg (25-35) Mean Corpuscular Hemoglobin Concent 30g/dL (31-37) Red Cell Distribution Width 21.1% (11.5-14.5) Platelet Count 232x10^3/uL (140-400) Neutrophils (%) (Auto) 80% (31-73) Lymphocytes (%) (Auto) 14% (24-48) Monocytes (%) (Auto) 6% (0-9) Eosinophils (%) (Auto) 0% (0-3) Basophils (%) (Auto) 0% (0-3) Neutrophils # (Auto) 5.6x10^3uL (1.8-7.7) Lymphocytes # (Auto) 1.0x10^3/uL (1.0-4.8) Monocytes # (Auto) 0.4x10^3/uL (0.0-1.1) Eosinophils # (Auto) 0.0x10^3/uL (0.0-0.7) Basophils # (Auto) 0.0x10^3/uL (0.0-0.2) Sodium Level 144mmol/L (136-145) Potassium Level 4.0mmol/L (3.5-5.1) Chloride Level 111mmol/L (98-107) Carbon Dioxide Level 24mmol/L (21-32) Anion Gap 9 (6-14) Blood Urea Nitrogen 17mg/dL (8-26) Creatinine 1.1mg/dL (0.7-1.3) Estimated GFR (Cockcroft-Gault) 78.5 Glucose Level 101mg/dL (70-99) Calcium Level 8.1mg/dL (8.5-10.1) Microbiology 08/31/16 Blood Culture - Preliminary, Resulted NO GROWTH AFTER 2 DAYS 08/31/16 Urine Culture - Final, Complete 08/31/16 Urine Culture Result 1 (HOANG) - Final, Complete 08/31/16 Antimicrobic Susceptibility - Final, Complete Medications Current Medications Sodium Chloride (Iv Sodium Chloride 0.9% 1000ml Bag) 1,000 ml @ 1,000 mls/hr Q1H IV Last administered on 08/31/16 20:01; Start 08/31/16 at 19:13; Stop at 20:12; Status DC Ondansetron HCl (Zofran) 4 mg 1X ONCE IV Last administered on 08/31/16 19:58 ; Start 08/31/16 at 19:15; Stop 08/31/16 at 19:17; Status DC Pantoprazole Sodium (Protonix Vial) 40 mg 1X ONCE IVP Last administered on 19:57; Start 08/31/16 at 19:15; Stop 08/31/16 at 19:17; Status DC Iohexol (Omnipaque 300 Mg/ml) 60 ml 1X ONCE IV Last administered on 08/31/16 20:30; Start 08/31/16 at 20:30; Stop 08/31/16 at 20:31; Status DC Levofloxacin/ Dextrose 1 each 1 each PRN DAILY PRN MC SEE COMMENTS; Start 08/31 at 21:15; Stop 09/03/16 at 11:50; Status DC Levofloxacin/ Dextrose 150 ml @ 100 mls/hr 1X ONCE IV Last administered on 21:51; Start 08/31/16 at 22:00; Stop 08/31/16 at 23:29; Status DC Pantoprazole Sodium 80 mg/ Sodium Chloride 100 ml @ 10 mls/hr 1X ONCE IV Last administered on 09/01/16 00:14; Start 08/31/16 at 23:00; Stop 09/01/16 at 08:59; Status DC Levofloxacin/ Dextrose (LEVAQUIN 250mg PREMIX) 50 ml @ 50 mls/hr Q24H IV Last administered on 09/02/16 21:07; Start 09/01/16 at 22:00; Stop 09/03/16 at 11:50 ; Status DC Ondansetron HCl 4 mg 4 mg PRN Q8HRS PRN IV NAUSEA/VOMITING Last administered on 09/01/16 18:26; Start 08/31/16 at 23:30; Stop 09/01/16 at 23:29; Status DC Sodium Chloride (Iv Sodium Chloride 0.9% 1000ml Bag) 1,000 ml @ 100 mls/hr Q10H IV Last administered on 09/01/16 00:13; Start 08/31/16 at 23:26; Stop at 12:36; Status DC Morphine Sulfate 2 mg PRN Q2HR PRN IV SEVERE PAIN Last administered on 11:52; Start 09/01/16 at 03:15 Acetaminophen (Tylenol) 650 mg PRN Q6HRS PRN PO PAIN; Start 09/01/16 at 12:45 Amlodipine Besylate (Norvasc) 5 mg DAILY PEG ; Start 09/01/16 at 13:00 Ascorbic Acid (Vitamin C) 500 mg DAILY PEG ; Start 09/02/16 at 09:00 Cyanocobalamin (Vitamin B-12) 1,000 mcg DAILY PEG ; Start 09/01/16 at 13:00 Fentanyl (Duragesic 100mcg/Hr Patch) 1 patch Q72H TD Last administered on 13:53; Start 09/01/16 at 12:45 Ferrous Sulfate 300 mg DAILY PEG ; Start 09/01/16 at 17:00 Oxycodone/ Acetaminophen (Percocet 5/325) 1 tab PRN Q4HRS PRN PEG PAIN; Start 09/01/16 at 12:45 Timolol Maleate (Timoptic 0.5% [facility]) 1 drop DAILY OU Last administered on 09/03 09:05; Start 09/01/16 at 14:00 Zolpidem Tartrate (Ambien) 5 mg HS PO ; Start 09/01/16 at 21:00 Atorvastatin Calcium (Lipitor) 80 mg QHS PO ; Start 09/01/16 at 21:00 Vitamin D (Vitamin D3) 1,000 unit DAILY PEG ; Start 09/01/16 at 14:00 Pantoprazole Sodium 40 mg 40 mg DAILYAC IVP Last administered on 09/03/16 09: 04; Start 09/01/16 at 14:00 Amino Acids/ Glycerin/ Electrolytes (Procalamine) 1,000 ml @ 80 mls/hr [id number] IV ; Start 09/01/16 at 12:45; Stop 09/01/16 at 12:45; Status DC Ondansetron HCl (Zofran) 4 mg PRN Q6HRS PRN IV NAUSEA/VOMITING; Start 09/01/16 at 12:45 Morphine Sulfate 2 mg PRN Q2HR PRN IV PAIN; Start 09/01/16 at 12:45; Stop 09/01 at 14:46; Status DC Morphine Sulfate 4 mg 4 mg PRN Q2HR PRN IV PAIN Last administered on 09/01/16 14:01; Start 09/01/16 at 12:45 Sodium Chloride 1,000 ml @ 100 mls/hr Q10H IV Last administered on 09/02/16 10:42; Start 09/01/16 at 12:45; Stop 09/02/16 at 12:27; Status DC Dextrose 1,000 ml @ 100 mls/hr Q10H IV Last administered on 09/03/16 11:54; Start 09/02/16 at 13:00 Active Scripts Active Reported Timolol Maleate 10 Ml Drops 1 Drop LEFTEYE DAILY Zolpidem Tartrate 5 Mg Tablet 5 Mg PO HS Percocet 5-325 Mg Tablet (Oxycodone/Acetaminophen) 1 Each Tablet 1 Tab PEG PRN Q4HRS PRN Oxybutynin Chloride 5 Mg/5 Ml Syrup 5 Mg PO BID Ferrous Sulfate 325 Mg Tablet 300 Mg PEG DAILY DURAGESIC 100mcg/hr (Fentanyl) 1 Each Patch.td72 1 Patch TD Q72H Lovenox (Enoxaparin Sodium) 40 Mg/0.4 Ml Disp.syrin 40 Mg SQ HS Vitamin B-12 (Cyanocobalamin (Vitamin B-12)) 1,000 Mcg Tablet 1,000 Mcg SL DAILY Just D (Cholecalciferol (Vitamin D3)) 400 Unit/1 Ml Drops 400 Unit PEG DAILY Atorvastatin Calcium 80 Mg Tablet 80 Mg PEG HS Aspirin 81 Mg Tab.chew 81 Mg PEG DAILY Ascorbic Acid 500 Mg Tablet 500 Mg PEG DAILY Amlodipine Besylate 5 Mg Tablet 5 Mg PEG DAILY Tylenol (Acetaminophen) 325 Mg Tablet 650 Mg PEG PRN PRN Vitals/I & O Vital Sign - Last 24 Hours 09/02/16 09/02/16 09/02/16 09/02/16 15:00 19:30 19:30 20:00 Temp 97.7 98.3 97.7 98.3 Pulse 68 79 Resp 20 B/P 99/54 112/62 Pulse Ox 100 99 O2 Delivery Nasal Cannula Room Air Nasal Cannula O2 Flow Rate 2.0 3.0 3.0 09/02/16 09/03/16 09/03/16 09/03/16 23:19 03:33 07:00 08:00 Temp 98.9 98.8 99.5 98.9 98.8 99.5 Pulse 83 79 89 Resp 20 B/P 109/56 121/59 113/55 Pulse Ox 98 93 100 O2 Delivery Nasal Cannula Nasal Cannula Nasal Cannula Nasal Cannula O2 Flow Rate 2.0 3.0 3.0 3.0 09/03/16 11:00 Temp 98.8 98.8 Pulse 77 Resp 20 B/P 132/88 Pulse Ox 100 O2 Delivery Nasal Cannula O2 Flow Rate 3.0 Intake and Output 09/02/16 09/02/16 09/03/16 15:00 23:00 07:00 Intake Total 0 ml Output Total 675 ml 400 ml Balance -675 ml -400 ml AISHWARYA ZABALA MD Sep 03, 2016 12:05
[2016-09-03 15:00] VITALS: BP 129/57
[2016-09-03 19:15] VITALS: BP 129/71
[2016-09-03] MEDS: ZOLPIDEM 5 MG TABLET. PO SCH (21:00)
[2016-09-03] MEDS: ATORVASTATIN CALCIUM 40 MG TABLET. PO SCH (21:00)
[2016-09-03 23:01] VITALS: BP 132/77
[2016-09-04 03:00] VITALS: BP 146/76
[2016-09-04 07:00] VITALS: BP 135/79
[2016-09-04] MEDS: FERROUS SULFATE ORAL 300 MG/5 ML SOLUTION. PEG SCH (08:08)
[2016-09-04] MEDS: CYANOCOBALAMIN (VITAMIN B-12) 1,000 MCG TABLET. PEG SCH (08:08)
[2016-09-04] MEDS: CHOLECALCIFEROL (VITAMIN D3) 1,000 UNIT TABLET PEG SCH (08:09)
[2016-09-04] MEDS: ASCORBIC ACID 500 MG TABLET PEG SCH (08:09)
[2016-09-04 08:25] LABS: BASO % 0 % (0-3); EOS % 0 % (0-3); HEMATOCRIT 28.4 % (39.0-53.0); HEMOGLOBIN 8.9 g/dL (13.0-17.5); LYMPH # 0.9 x10^3/uL (1.0-4.8); LYMPH % 14 % (24-48); MEAN CORPUSCULAR HEMOGLOBIN 32 pg (25-35); MEAN CORPUSCULAR HGB CONC 32 g/dL (31-37); MEAN CORPUSCULAR VOLUME 100 fL (79-100); MONO % 5 % (0-9); NEUT % 81 % (31-73); PLATELET COUNT 246 x10^3/uL (140-400); RED BLOOD COUNT 2.84 x10^6/uL (4.30-5.70); RED CELL DISTRIBUTION WIDTH 19.3 % (11.5-14.5); WHITE BLOOD COUNT 6.5 x10^3/uL (4.0-11.0)
[2016-09-04 08:30] LABS: CALCIUM 8.6 mg/dL (8.5-10.1); GFR 87.7; POTASSIUM 3.9 mmol/L (3.5-5.1)
[2016-09-04] MEDS: PANTOPRAZOLE IV PUSH 40 MG VIAL. IVP SCH (08:41)
[2016-09-04] MEDS: TIMOLOL 0.5% OPHTH SOLUTION 5ML BOTTLE. OU SCH (08:43)
[2016-09-04] MEDS: AMLODIPINE BESYLATE 5 MG TABLET PEG SCH (09:00)
--- NOTE | 2016-09-04 09:08 | PDOC ---
RONALD LOUIS INSTRUCTIONAL FACILITATOR 09/04/16 0908: SURGICAL PROGRESS NOTE Subjective does report abdominal pain Vital Signs Vital Signs Date Time Temp Pulse Resp B/P Pulse Ox O2 Delivery O2 Flow Rate FiO2 09/04/16 03:00 99.3 78 18 146/76 99 Room Air 99.3 09/03/16 23:01 2.0 I&O Intake and Output 09/04/16 07:00 Intake Total 2400 ml Output Total 1375 ml Balance 1025 ml Intake Oral 0 ml IV Total 1200 ml Other 1200 ml Output Urine Total 1225 ml Gastric Drainage Total 150 ml General: Cooperative, No acute distress Abdomen: Soft, Other (nd, gastric drainage minimal from g tube, bilious ) Labs Laboratory Tests Test 09/03/16 05:25 09/04/16 07:53 White Blood Count 7.0x10^3/uL (4.0-11.0) 6.5x10^3/uL (4.0-11.0) Red Blood Count 2.75x10^6/uL (4.30-5.70) 2.84x10^6/uL (4.30-5.70) Hemoglobin 8.7g/dL (13.0-17.5) 8.9g/dL (13.0-17.5) Hematocrit 28.6% (39.0-53.0) 28.4% (39.0-53.0) Mean Corpuscular Volume 104fL (79-100) 100fL (79-100) Mean Corpuscular Hemoglobin 31pg (25-35) 32pg (25-35) Mean Corpuscular Hemoglobin Concent 30g/dL (31-37) 32g/dL (31-37) Red Cell Distribution Width 21.1% (11.5-14.5) 19.3% (11.5-14.5) Platelet Count 232x10^3/uL (140-400) 246x10^3/uL (140-400) Neutrophils (%) (Auto) 80% (31-73) 81% (31-73) Lymphocytes (%) (Auto) 14% (24-48) 14% (24-48) Monocytes (%) (Auto) 6% (0-9) 5% (0-9) Eosinophils (%) (Auto) 0% (0-3) 0% (0-3) Basophils (%) (Auto) 0% (0-3) 0% (0-3) Neutrophils # (Auto) 5.6x10^3uL (1.8-7.7) 5.3x10^3uL (1.8-7.7) Lymphocytes # (Auto) 1.0x10^3/uL (1.0-4.8) 0.9x10^3/uL (1.0-4.8) Monocytes # (Auto) 0.4x10^3/uL (0.0-1.1) 0.3x10^3/uL (0.0-1.1) Eosinophils # (Auto) 0.0x10^3/uL (0.0-0.7) 0.0x10^3/uL (0.0-0.7) Basophils # (Auto) 0.0x10^3/uL (0.0-0.2) 0.0x10^3/uL (0.0-0.2) Sodium Level 144mmol/L (136-145) 144mmol/L (136-145) Potassium Level 4.0mmol/L (3.5-5.1) 3.9mmol/L (3.5-5.1) Chloride Level 111mmol/L (98-107) 110mmol/L (98-107) Carbon Dioxide Level 24mmol/L (21-32) 28mmol/L (21-32) Anion Gap 9 (6-14) 6 (6-14) Blood Urea Nitrogen 17mg/dL (8-26) 12mg/dL (8-26) Creatinine 1.1mg/dL (0.7-1.3) 1.0mg/dL (0.7-1.3) Estimated GFR (Cockcroft-Gault) 78.5 87.7 Glucose Level 101mg/dL (70-99) 120mg/dL (70-99) Calcium Level 8.1mg/dL (8.5-10.1) 8.6mg/dL (8.5-10.1) Laboratory Tests Test 09/04/16 07:53 White Blood Count 6.5x10^3/uL (4.0-11.0) Red Blood Count 2.84x10^6/uL (4.30-5.70) Hemoglobin 8.9g/dL (13.0-17.5) Hematocrit 28.4% (39.0-53.0) Mean Corpuscular Volume 100fL (79-100) Mean Corpuscular Hemoglobin 32pg (25-35) Mean Corpuscular Hemoglobin Concent 32g/dL (31-37) Red Cell Distribution Width 19.3% (11.5-14.5) Platelet Count 246x10^3/uL (140-400) Neutrophils (%) (Auto) 81% (31-73) Lymphocytes (%) (Auto) 14% (24-48) Monocytes (%) (Auto) 5% (0-9) Eosinophils (%) (Auto) 0% (0-3) Basophils (%) (Auto) 0% (0-3) Neutrophils # (Auto) 5.3x10^3uL (1.8-7.7) Lymphocytes # (Auto) 0.9x10^3/uL (1.0-4.8) Monocytes # (Auto) 0.3x10^3/uL (0.0-1.1) Eosinophils # (Auto) 0.0x10^3/uL (0.0-0.7) Basophils # (Auto) 0.0x10^3/uL (0.0-0.2) Sodium Level 144mmol/L (136-145) Potassium Level 3.9mmol/L (3.5-5.1) Chloride Level 110mmol/L (98-107) Carbon Dioxide Level 28mmol/L (21-32) Anion Gap 6 (6-14) Blood Urea Nitrogen 12mg/dL (8-26) Creatinine 1.0mg/dL (0.7-1.3) Estimated GFR (Cockcroft-Gault) 87.7 Glucose Level 120mg/dL (70-99) Calcium Level 8.6mg/dL (8.5-10.1) Problem List Problems Medical Problems: (1) Quadriplegia Status: Acute (2) SBO (small bowel obstruction) Status: Acute (3) Severe protein-calorie malnutrition Status: Acute (4) Upper GI bleed Status: Acute (5) UTI (urinary tract infection) Status: Acute Assessment/Plan xrays pending will follow up on films Problems: THERESA CRUZ MD 09/04/162101: SURGICAL PROGRESS NOTE Assessment/Plan Abd films show improvement of the small bowel distention. Continue supportive care. Problems: RONALD LOUIS APRN Sep 04, 2016 09:08 THERESA CRUZ MD Sep 04, 2016 21:02
--- NOTE | 2016-09-04 10:46 | PDOC ---
PROGRESS NOTES Chief Complaint Chief Complaint SBO 1. 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 reCENT CO WO PCI 4. dementia with MS 5. QUadriplegia, due to MS, with blindness 6. 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 SEVERE malnutrition 10. hypernatremia 11 .anemia s/p 1u PRBC 09/01 History of Present Illness History of Present Illness more communicative, more alert than previously reported complains of pain 9, Im not sure that is 03/25, will assume, he was asleep Na better hB STABLE post 1u PRBC NO BM, PEG suction green 1. npo, cont D5 2. PEG to LI suction 3. gi, sx following 4. hold po meds since PEG held dc levaquin discussed with pharmacy, Rocephin today, UTI, AXR as per sx tmr. Vitals Vitals Vital Signs Date Time Temp Pulse Resp B/P Pulse Ox O2 Delivery O2 Flow Rate FiO2 09/04/16 08:00 Nasal Cannula 2.0 09/04/16 07:00 98.3 74 14 135/79 100 98.3 Physical Exam General: Cooperative, No acute distress Heart: Regular rate, Normal S1, Normal S2 Abdomen: Soft, Other (nd, gastric drainage minimal from g tube, bilious ) Extremities: No clubbing, No cyanosis Skin: No rashes, No breakdown Labs LABS Laboratory Tests Test 09/04/16 07:53 White Blood Count 6.5x10^3/uL (4.0-11.0) Red Blood Count 2.84x10^6/uL (4.30-5.70) Hemoglobin 8.9g/dL (13.0-17.5) Hematocrit 28.4% (39.0-53.0) Mean Corpuscular Volume 100fL (79-100) Mean Corpuscular Hemoglobin 32pg (25-35) Mean Corpuscular Hemoglobin Concent 32g/dL (31-37) Red Cell Distribution Width 19.3% (11.5-14.5) Platelet Count 246x10^3/uL (140-400) Neutrophils (%) (Auto) 81% (31-73) Lymphocytes (%) (Auto) 14% (24-48) Monocytes (%) (Auto) 5% (0-9) Eosinophils (%) (Auto) 0% (0-3) Basophils (%) (Auto) 0% (0-3) Neutrophils # (Auto) 5.3x10^3uL (1.8-7.7) Lymphocytes # (Auto) 0.9x10^3/uL (1.0-4.8) Monocytes # (Auto) 0.3x10^3/uL (0.0-1.1) Eosinophils # (Auto) 0.0x10^3/uL (0.0-0.7) Basophils # (Auto) 0.0x10^3/uL (0.0-0.2) Sodium Level 144mmol/L (136-145) Potassium Level 3.9mmol/L (3.5-5.1) Chloride Level 110mmol/L (98-107) Carbon Dioxide Level 28mmol/L (21-32) Anion Gap 6 (6-14) Blood Urea Nitrogen 12mg/dL (8-26) Creatinine 1.0mg/dL (0.7-1.3) Estimated GFR (Cockcroft-Gault) 87.7 Glucose Level 120mg/dL (70-99) Calcium Level 8.6mg/dL (8.5-10.1) Assessment and Plan Assessmemt and Plan Problems Medical Problems: (1) Quadriplegia Status: Acute (2) SBO (small bowel obstruction) Status: Acute (3) Severe protein-calorie malnutrition Status: Acute (4) Upper GI bleed Status: Acute (5) UTI (urinary tract infection) Status: Acute Problems: Comment Review of Relevant I have reviewed the following items juan f (where applicable) has been applied. Labs Laboratory Tests Test 09/03/16 05:25 09/04/16 07:53 White Blood Count 7.0x10^3/uL (4.0-11.0) 6.5x10^3/uL (4.0-11.0) Red Blood Count 2.75x10^6/uL (4.30-5.70) 2.84x10^6/uL (4.30-5.70) Hemoglobin 8.7g/dL (13.0-17.5) 8.9g/dL (13.0-17.5) Hematocrit 28.6% (39.0-53.0) 28.4% (39.0-53.0) Mean Corpuscular Volume 104fL (79-100) 100fL (79-100) Mean Corpuscular Hemoglobin 31pg (25-35) 32pg (25-35) Mean Corpuscular Hemoglobin Concent 30g/dL (31-37) 32g/dL (31-37) Red Cell Distribution Width 21.1% (11.5-14.5) 19.3% (11.5-14.5) Platelet Count 232x10^3/uL (140-400) 246x10^3/uL (140-400) Neutrophils (%) (Auto) 80% (31-73) 81% (31-73) Lymphocytes (%) (Auto) 14% (24-48) 14% (24-48) Monocytes (%) (Auto) 6% (0-9) 5% (0-9) Eosinophils (%) (Auto) 0% (0-3) 0% (0-3) Basophils (%) (Auto) 0% (0-3) 0% (0-3) Neutrophils # (Auto) 5.6x10^3uL (1.8-7.7) 5.3x10^3uL (1.8-7.7) Lymphocytes # (Auto) 1.0x10^3/uL (1.0-4.8) 0.9x10^3/uL (1.0-4.8) Monocytes # (Auto) 0.4x10^3/uL (0.0-1.1) 0.3x10^3/uL (0.0-1.1) Eosinophils # (Auto) 0.0x10^3/uL (0.0-0.7) 0.0x10^3/uL (0.0-0.7) Basophils # (Auto) 0.0x10^3/uL (0.0-0.2) 0.0x10^3/uL (0.0-0.2) Sodium Level 144mmol/L (136-145) 144mmol/L (136-145) Potassium Level 4.0mmol/L (3.5-5.1) 3.9mmol/L (3.5-5.1) Chloride Level 111mmol/L (98-107) 110mmol/L (98-107) Carbon Dioxide Level 24mmol/L (21-32) 28mmol/L (21-32) Anion Gap 9 (6-14) 6 (6-14) Blood Urea Nitrogen 17mg/dL (8-26) 12mg/dL (8-26) Creatinine 1.1mg/dL (0.7-1.3) 1.0mg/dL (0.7-1.3) Estimated GFR (Cockcroft-Gault) 78.5 87.7 Glucose Level 101mg/dL (70-99) 120mg/dL (70-99) Calcium Level 8.1mg/dL (8.5-10.1) 8.6mg/dL (8.5-10.1) Laboratory Tests Test 09/04/16 07:53 White Blood Count 6.5x10^3/uL (4.0-11.0) Red Blood Count 2.84x10^6/uL (4.30-5.70) Hemoglobin 8.9g/dL (13.0-17.5) Hematocrit 28.4% (39.0-53.0) Mean Corpuscular Volume 100fL (79-100) Mean Corpuscular Hemoglobin 32pg (25-35) Mean Corpuscular Hemoglobin Concent 32g/dL (31-37) Red Cell Distribution Width 19.3% (11.5-14.5) Platelet Count 246x10^3/uL (140-400) Neutrophils (%) (Auto) 81% (31-73) Lymphocytes (%) (Auto) 14% (24-48) Monocytes (%) (Auto) 5% (0-9) Eosinophils (%) (Auto) 0% (0-3) Basophils (%) (Auto) 0% (0-3) Neutrophils # (Auto) 5.3x10^3uL (1.8-7.7) Lymphocytes # (Auto) 0.9x10^3/uL (1.0-4.8) Monocytes # (Auto) 0.3x10^3/uL (0.0-1.1) Eosinophils # (Auto) 0.0x10^3/uL (0.0-0.7) Basophils # (Auto) 0.0x10^3/uL (0.0-0.2) Sodium Level 144mmol/L (136-145) Potassium Level 3.9mmol/L (3.5-5.1) Chloride Level 110mmol/L (98-107) Carbon Dioxide Level 28mmol/L (21-32) Anion Gap 6 (6-14) Blood Urea Nitrogen 12mg/dL (8-26) Creatinine 1.0mg/dL (0.7-1.3) Estimated GFR (Cockcroft-Gault) 87.7 Glucose Level 120mg/dL (70-99) Calcium Level 8.6mg/dL (8.5-10.1) Microbiology 08/31/16 Blood Culture - Preliminary, Resulted NO GROWTH AFTER 3 DAYS 08/31/16 Urine Culture - Final, Complete 08/31/16 Urine Culture Result 1 (HOANG) - Final, Complete 08/31/16 Antimicrobic Susceptibility - Final, Complete Medications Current Medications Sodium Chloride (Iv Sodium Chloride 0.9% 1000ml Bag) 1,000 ml @ 1,000 mls/hr Q1H IV Last administered on 08/31/16 20:01; Start 08/31/16 at 19:13; Stop at 20:12; Status DC Ondansetron HCl (Zofran) 4 mg 1X ONCE IV Last administered on 08/31/16 19:58 ; Start 08/31/16 at 19:15; Stop 08/31/16 at 19:17; Status DC Pantoprazole Sodium (Protonix Vial) 40 mg 1X ONCE IVP Last administered on 19:57; Start 08/31/16 at 19:15; Stop 08/31/16 at 19:17; Status DC Iohexol (Omnipaque 300 Mg/ml) 60 ml 1X ONCE IV Last administered on 08/31/16 20:30; Start 08/31/16 at 20:30; Stop 08/31/16 at 20:31; Status DC Levofloxacin/ Dextrose 1 each 1 each PRN DAILY PRN MC SEE COMMENTS; Start 08/31 at 21:15; Stop 09/03/16 at 11:50; Status DC Levofloxacin/ Dextrose 150 ml @ 100 mls/hr 1X ONCE IV Last administered on 21:51; Start 08/31/16 at 22:00; Stop 08/31/16 at 23:29; Status DC Pantoprazole Sodium 80 mg/ Sodium Chloride 100 ml @ 10 mls/hr 1X ONCE IV Last administered on 09/01/16 00:14; Start 08/31/16 at 23:00; Stop 09/01/16 at 08:59; Status DC Levofloxacin/ Dextrose (LEVAQUIN 250mg PREMIX) 50 ml @ 50 mls/hr Q24H IV Last administered on 09/02/16 21:07; Start 09/01/16 at 22:00; Stop 09/03/16 at 11:50 ; Status DC Ondansetron HCl 4 mg 4 mg PRN Q8HRS PRN IV NAUSEA/VOMITING Last administered on 09/01/16 18:26; Start 08/31/16 at 23:30; Stop 09/01/16 at 23:29; Status DC Sodium Chloride (Iv Sodium Chloride 0.9% 1000ml Bag) 1,000 ml @ 100 mls/hr Q10H IV Last administered on 09/01/16 00:13; Start 08/31/16 at 23:26; Stop at 12:36; Status DC Morphine Sulfate 2 mg PRN Q2HR PRN IV SEVERE PAIN Last administered on 11:52; Start 09/01/16 at 03:15 Acetaminophen (Tylenol) 650 mg PRN Q6HRS PRN PO PAIN; Start 09/01/16 at 12:45 Amlodipine Besylate (Norvasc) 5 mg DAILY PEG ; Start 09/01/16 at 13:00 Ascorbic Acid (Vitamin C) 500 mg DAILY PEG ; Start 09/02/16 at 09:00 Cyanocobalamin (Vitamin B-12) 1,000 mcg DAILY PEG ; Start 09/01/16 at 13:00 Fentanyl (Duragesic 100mcg/Hr Patch) 1 patch Q72H TD Last administered on 13:53; Start 09/01/16 at 12:45 Ferrous Sulfate 300 mg DAILY PEG ; Start 09/01/16 at 17:00 Oxycodone/ Acetaminophen (Percocet 5/325) 1 tab PRN Q4HRS PRN PEG PAIN; Start 09/01/16 at 12:45 Timolol Maleate (Timoptic 0.5% [facility]) 1 drop DAILY OU Last administered on 09/04 08:43; Start 09/01/16 at 14:00 Zolpidem Tartrate (Ambien) 5 mg HS PO ; Start 09/01/16 at 21:00 Atorvastatin Calcium (Lipitor) 80 mg QHS PO ; Start 09/01/16 at 21:00 Vitamin D (Vitamin D3) 1,000 unit DAILY PEG ; Start 09/01/16 at 14:00 Pantoprazole Sodium 40 mg 40 mg DAILYAC IVP Last administered on 09/04/16 08: 41; Start 09/01/16 at 14:00 Amino Acids/ Glycerin/ Electrolytes (Procalamine) 1,000 ml @ 80 mls/hr [id number] IV ; Start 09/01/16 at 12:45; Stop 09/01/16 at 12:45; Status DC Ondansetron HCl (Zofran) 4 mg PRN Q6HRS PRN IV NAUSEA/VOMITING; Start 09/01/16 at 12:45 Morphine Sulfate 2 mg PRN Q2HR PRN IV PAIN; Start 09/01/16 at 12:45; Stop 09/01 at 14:46; Status DC Morphine Sulfate 4 mg 4 mg PRN Q2HR PRN IV PAIN Last administered on 09/01/16 14:01; Start 09/01/16 at 12:45 Sodium Chloride 1,000 ml @ 100 mls/hr Q10H IV Last administered on 09/02/16 10:42; Start 09/01/16 at 12:45; Stop 09/02/16 at 12:27; Status DC Dextrose 1,000 ml @ 100 mls/hr Q10H IV Last administered on 09/03/16 23:15; Start 09/02/16 at 13:00 Active Scripts Active Reported Timolol Maleate 10 Ml Drops 1 Drop LEFTEYE DAILY Zolpidem Tartrate 5 Mg Tablet 5 Mg PO HS Percocet 5-325 Mg Tablet (Oxycodone/Acetaminophen) 1 Each Tablet 1 Tab PEG PRN Q4HRS PRN Oxybutynin Chloride 5 Mg/5 Ml Syrup 5 Mg PO BID Ferrous Sulfate 325 Mg Tablet 300 Mg PEG DAILY DURAGESIC 100mcg/hr (Fentanyl) 1 Each Patch.td72 1 Patch TD Q72H Lovenox (Enoxaparin Sodium) 40 Mg/0.4 Ml Disp.syrin 40 Mg SQ HS Vitamin B-12 (Cyanocobalamin (Vitamin B-12)) 1,000 Mcg Tablet 1,000 Mcg SL DAILY Just D (Cholecalciferol (Vitamin D3)) 400 Unit/1 Ml Drops 400 Unit PEG DAILY Atorvastatin Calcium 80 Mg Tablet 80 Mg PEG HS Aspirin 81 Mg Tab.chew 81 Mg PEG DAILY Ascorbic Acid 500 Mg Tablet 500 Mg PEG DAILY Amlodipine Besylate 5 Mg Tablet 5 Mg PEG DAILY Tylenol (Acetaminophen) 325 Mg Tablet 650 Mg PEG PRN PRN Vitals/I & O Vital Sign - Last 24 Hours 09/03/16 09/03/16 09/03/16 09/03/16 11:00 15:00 19:15 19:40 Temp 98.8 98.7 99.3 98.8 98.7 99.3 Pulse 77 87 77 Resp 20 B/P 132/88 129/57 129/71 Pulse Ox 100 100 98 O2 Delivery Nasal Cannula Nasal Cannula Nasal Cannula Nasal Cannula O2 Flow Rate 3.0 3.0 3.0 3.0 09/03/16 09/04/16 09/04/16 09/04/16 23:01 03:00 07:00 08:00 Temp 98.8 99.3 98.3 98.8 99.3 98.3 Pulse 79 78 74 Resp 18 18 14 B/P 132/77 146/76 135/79 Pulse Ox 100 99 100 O2 Delivery Nasal Cannula Room Air Nasal Cannula Nasal Cannula O2 Flow Rate 2.0 2.0 2.0 Intake and Output 09/03/16 09/03/16 09/04/16 15:00 23:00 07:00 Intake Total 2400 ml Output Total 1050 ml 325 ml Balance -1050 ml 2075 ml MIKEL SOTO MD Sep 04, 2016 10:46
[2016-09-04] MEDS: IV DEXTROSE 5% 1,000 ML IV SCH ×3 (10:49→21:17)
[2016-09-04] MEDS: MORPHINE SULFATE 4 MG/ML DISP.SYRIN. IV PRN ×2 (10:50→13:41)
[2016-09-04 11:00] VITALS: BP 163/84
[2016-09-04] MEDS: CEFTRIAXONE SODIUM 1 GM in IV NORMAL SALINE 50ML 50 ML IV SCH (11:06)
[2016-09-04] MEDS: FENTANYL 100 MCG/HR TD SCH (11:10)
--- NOTE | 2016-09-04 13:44 | PDOC ---
Subjective: Subjective: Per pt - abd discomfort, asking for pain meds, daughter has called for RN. Objective: Objective: No stools documented, PEG still to suction. Vital Signs: Vital Signs Date Time Temp Pulse Resp B/P Pulse Ox O2 Delivery O2 Flow Rate FiO2 09/04/16 11:10 18 96 Nasal Cannula 2.0 09/04/16 11:00 98.2 69 163/84 98.2 Labs: Laboratory Tests Test 09/04/16 07:53 White Blood Count 6.5x10^3/uL Red Blood Count 2.84x10^6/uL Hemoglobin 8.9g/dL Hematocrit 28.4% Mean Corpuscular Volume 100fL Mean Corpuscular Hemoglobin 32pg Mean Corpuscular Hemoglobin Concent 32g/dL Red Cell Distribution Width 19.3% Platelet Count 246x10^3/uL Neutrophils (%) (Auto) 81% Lymphocytes (%) (Auto) 14% Monocytes (%) (Auto) 5% Eosinophils (%) (Auto) 0% Basophils (%) (Auto) 0% Neutrophils # (Auto) 5.3x10^3uL Lymphocytes # (Auto) 0.9x10^3/uL Monocytes # (Auto) 0.3x10^3/uL Eosinophils # (Auto) 0.0x10^3/uL Basophils # (Auto) 0.0x10^3/uL Sodium Level 144mmol/L Potassium Level 3.9mmol/L Chloride Level 110mmol/L Carbon Dioxide Level 28mmol/L Anion Gap 6 Blood Urea Nitrogen 12mg/dL Creatinine 1.0mg/dL Estimated GFR (Cockcroft-Gault) 87.7 Glucose Level 120mg/dL Calcium Level 8.6mg/dL Imaging: Acute Abd Series 09/04/16 PENDING PE: GEN: NAD LUNGS: clear anteriorly HEART: RRR ABD: LLQ tenderness, PEG to suction w/ minimal bilious drainage NEURO/PSYCH: A & O 3, able to talk more today OTHER: daughter Madhuri present A/P: Partial SBO, abd pain -s/p recent laparotomy and PEG placement at -feedings held ?hematemesis - prior to admission -on PPI -Hgb stable -- Await x-ray results. Other per Dr. Rosario. DAMON LANGSTON Sep 04, 2016 13:44
[2016-09-04 15:00] VITALS: BP 142/73
--- NOTE | 2016-09-04 15:22 | RAD ---
Portable acute abdomen series, 09/04/2016: History: Possible small bowel obstruction Comparison is made to a study from 08/31/2016. A gastrostomy tube overlies the left upper quadrant. Gas is present in large and small bowel in a nonspecific pattern. Previously seen gaseous distention of bowel loops has resolved. There is no radiographic evidence of obstruction. No free air seen in the abdomen. Scattered vascular calcifications are evident. Moderate degenerative change is present in the spine and at both hips. The heart size and pulmonary vascularity are normal. Mild streaky left basilar opacities have worsened. The right lung is clear. There is no evidence of pleural fluid. IMPRESSION: 1. Resolution of the gaseous distention of small bowel evident on 08/31/2016. 2. Worsening mild streaky left basilar atelectasis/infiltrate.
[2016-09-04 19:11] LABS: FOLIC ACID 14.2 ng/mL (>3.0)
[2016-09-04 19:20] VITALS: BP 139/69
[2016-09-04] MEDS: ATORVASTATIN CALCIUM 40 MG TABLET. PO SCH (20:28)
[2016-09-04] MEDS: ZOLPIDEM 5 MG TABLET. PO SCH (20:28)
[2016-09-04 23:15] VITALS: BP 106/65
[2016-09-05 03:31] VITALS: BP 126/67
[2016-09-05 07:00] VITALS: BP 122/70
[2016-09-05] MEDS: FERROUS SULFATE ORAL 300 MG/5 ML SOLUTION. PEG SCH (07:14)
[2016-09-05] MEDS: ASCORBIC ACID 500 MG TABLET PEG SCH (07:15)
[2016-09-05] MEDS: CYANOCOBALAMIN (VITAMIN B-12) 1,000 MCG TABLET. PEG SCH (07:15)
[2016-09-05] MEDS: CHOLECALCIFEROL (VITAMIN D3) 1,000 UNIT TABLET PEG SCH (07:15)
[2016-09-05] MEDS: MORPHINE SULFATE 4 MG/ML DISP.SYRIN. IV PRN (08:04)
[2016-09-05] MEDS: PANTOPRAZOLE IV PUSH 40 MG VIAL. IVP SCH (08:07)
[2016-09-05] MEDS: TIMOLOL 0.5% OPHTH SOLUTION 5ML BOTTLE. OU SCH (08:11)
[2016-09-05] MEDS: IV DEXTROSE 5% 1,000 ML IV SCH ×2 (08:12→19:29)
[2016-09-05] MEDS: AMLODIPINE BESYLATE 5 MG TABLET PEG SCH (09:00)
[2016-09-05 11:00] VITALS: BP 137/75
[2016-09-05] MEDS: CEFTRIAXONE SODIUM 1 GM in IV NORMAL SALINE 50ML 50 ML IV SCH (11:00)
--- NOTE | 2016-09-05 13:58 | PDOC ---
PROGRESS NOTES Chief Complaint Chief Complaint SBO 1. SBO, LIKELY 2/2 Adhesion post sx last month 2 recent exploratory lap to remove neuroendocrine tumor 3. reCENT CA WO PCI 4. dementia with MS 5. QUadriplegia, due to MS, with blindness 6. 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 SEVERE malnutrition 10. hypernatremia 11 .anemia s/p 1u PRBC 09/01 History of Present Illness History of Present Illness more communicative, more alert than previously reported no pain feels better abd soft restart tube feeds, if [place], [facility] resume PO pomeds Rocephin for UTI, Vitals Vitals Vital Signs Date Time Temp Pulse Resp B/P Pulse Ox O2 Delivery O2 Flow Rate FiO2 09/05/16 11:00 98.7 81 18 137/75 100 Nasal Cannula 2.0 98.7 Physical Exam General: Cooperative, No acute distress Heart: Regular rate, Normal S1, Normal S2 Abdomen: Soft, Other (nd, gastric drainage minimal from g tube, bilious ) Extremities: No clubbing, No cyanosis Skin: No rashes, No breakdown Review of Systems Review of Systems pain better no n/./v Assessment and Plan Assessmemt and Plan Problems Medical Problems: (1) Quadriplegia Status: Acute (2) SBO (small bowel obstruction) Status: Acute (3) Severe protein-calorie malnutrition Status: Acute (4) Upper GI bleed Status: Acute (5) UTI (urinary tract infection) Status: Acute Problems: Comment Review of Relevant I have reviewed the following items juan f (where applicable) has been applied. Labs Laboratory Tests Test 09/04/16 07:53 White Blood Count 6.5x10^3/uL (4.0-11.0) Red Blood Count 2.84x10^6/uL (4.30-5.70) Hemoglobin 8.9g/dL (13.0-17.5) Hematocrit 28.4% (39.0-53.0) Mean Corpuscular Volume 100fL (79-100) Mean Corpuscular Hemoglobin 32pg (25-35) Mean Corpuscular Hemoglobin Concent 32g/dL (31-37) Red Cell Distribution Width 19.3% (11.5-14.5) Platelet Count 246x10^3/uL (140-400) Neutrophils (%) (Auto) 81% (31-73) Lymphocytes (%) (Auto) 14% (24-48) Monocytes (%) (Auto) 5% (0-9) Eosinophils (%) (Auto) 0% (0-3) Basophils (%) (Auto) 0% (0-3) Neutrophils # (Auto) 5.3x10^3uL (1.8-7.7) Lymphocytes # (Auto) 0.9x10^3/uL (1.0-4.8) Monocytes # (Auto) 0.3x10^3/uL (0.0-1.1) Eosinophils # (Auto) 0.0x10^3/uL (0.0-0.7) Basophils # (Auto) 0.0x10^3/uL (0.0-0.2) Sodium Level 144mmol/L (136-145) Potassium Level 3.9mmol/L (3.5-5.1) Chloride Level 110mmol/L (98-107) Carbon Dioxide Level 28mmol/L (21-32) Anion Gap 6 (6-14) Blood Urea Nitrogen 12mg/dL (8-26) Creatinine 1.0mg/dL (0.7-1.3) Estimated GFR (Cockcroft-Gault) 87.7 Glucose Level 120mg/dL (70-99) Calcium Level 8.6mg/dL (8.5-10.1) Vitamin B12 Level 967pg/mL (211-946) Folic Acid (LAB) 14.2ng/mL (>3.0) Microbiology 08/31/16 Blood Culture - Preliminary, Resulted NO GROWTH AFTER 4 DAYS 08/31/16 Urine Culture - Final, Complete 08/31/16 Urine Culture Result 1 (HOANG) - Final, Complete 08/31/16 Antimicrobic Susceptibility - Final, Complete Medications Current Medications Sodium Chloride (Iv Sodium Chloride 0.9% 1000ml Bag) 1,000 ml @ 1,000 mls/hr Q1H IV Last administered on 08/31/16t 20:01; Start 08/31/16 at 19:13; Stop at 20:12; Status DC Ondansetron HCl (Zofran) 4 mg 1X ONCE IV Last administered on 08/31/16 19:58 ; Start 08/31/16 at 19:15; Stop 08/31/16 at 19:17; Status DC Pantoprazole Sodium (Protonix Vial) 40 mg 1X ONCE IVP Last administered on 19:57; Start 08/31/16 at 19:15; Stop 08/31/16 at 19:17; Status DC Iohexol (Omnipaque 300 Mg/ml) 60 ml 1X ONCE IV Last administered on 08/31/16 20:30; Start 08/31/16 at 20:30; Stop 08/31/16 at 20:31; Status DC Levofloxacin/ Dextrose 1 each 1 each PRN DAILY PRN MC SEE COMMENTS; Start 08/31 at 21:15; Stop 09/03/16 at 11:50; Status DC Levofloxacin/ Dextrose 150 ml @ 100 mls/hr 1X ONCE IV Last administered on 21:51; Start 08/31/16 at 22:00; Stop 08/31/16 at 23:29; Status DC Pantoprazole Sodium 80 mg/ Sodium Chloride 100 ml @ 10 mls/hr 1X ONCE IV Last administered on 09/01/16 00:14; Start 08/31/16 at 23:00; Stop 09/01/16 at 08:59; Status DC Levofloxacin/ Dextrose (LEVAQUIN 250mg PREMIX) 50 ml @ 50 mls/hr Q24H IV Last administered on 09/02/16 21:07; Start 09/01/16 at 22:00; Stop 09/03/16 at 11:50 ; Status DC Ondansetron HCl 4 mg 4 mg PRN Q8HRS PRN IV NAUSEA/VOMITING Last administered on 09/01/16 18:26; Start 08/31/16 at 23:30; Stop 09/01/16 at 23:29; Status DC Sodium Chloride (Iv Sodium Chloride 0.9% 1000ml Bag) 1,000 ml @ 100 mls/hr Q10H IV Last administered on 09/01/16 00:13; Start 08/31/16 at 23:26; Stop at 12:36; Status DC Morphine Sulfate 2 mg PRN Q2HR PRN IV MODERATE PAIN Last administered on 11:52; Start 09/01/16 at 03:15 Acetaminophen (Tylenol) 650 mg PRN Q6HRS PRN PO PAIN; Start 09/01/16 at 12:45 Amlodipine Besylate (Norvasc) 5 mg DAILY PEG ; Start 09/01/16 at 13:00 Ascorbic Acid (Vitamin C) 500 mg DAILY PEG ; Start 09/02/16 at 09:00 Cyanocobalamin (Vitamin B-12) 1,000 mcg DAILY PEG ; Start 09/01/16 at 13:00 Fentanyl (Duragesic 100mcg/Hr Patch) 1 patch Q72H TD Last administered on 11:10; Start 09/01/16 at 12:45 Ferrous Sulfate 300 mg DAILY PEG ; Start 09/01/16 at 17:00 Oxycodone/ Acetaminophen (Percocet 5/325) 1 tab PRN Q4HRS PRN PEG PAIN; Start 09/01/16 at 12:45 Timolol Maleate (Timoptic 0.5% [facility]) 1 drop DAILY OU Last administered on 09/05 08:11; Start 09/01/16 at 14:00 Zolpidem Tartrate (Ambien) 5 mg HS PO ; Start 09/01/16 at 21:00 Atorvastatin Calcium (Lipitor) 80 mg QHS PO ; Start 09/01/16 at 21:00 Vitamin D (Vitamin D3) 1,000 unit DAILY PEG ; Start 09/01/16 at 14:00 Pantoprazole Sodium 40 mg 40 mg DAILYAC IVP Last administered on 09/05/16 08: 07; Start 09/01/16 at 14:00 Amino Acids/ Glycerin/ Electrolytes (Procalamine) 1,000 ml @ 80 mls/hr [id number] IV ; Start 09/01/16 at 12:45; Stop 09/01/16 at 12:45; Status DC Ondansetron HCl (Zofran) 4 mg PRN Q6HRS PRN IV NAUSEA/VOMITING; Start 09/01/16 at 12:45 Morphine Sulfate 2 mg PRN Q2HR PRN IV PAIN; Start 09/01/16 at 12:45; Stop 09/01 at 14:46; Status DC Morphine Sulfate 4 mg 4 mg PRN Q2HR PRN IV SEVERE PAIN Last administered on 08:04; Start 09/01/16 at 12:45 Sodium Chloride 1,000 ml @ 100 mls/hr Q10H IV Last administered on 09/02/16 10:42; Start 09/01/16 at 12:45; Stop 09/02/16 at 12:27; Status DC Dextrose 1,000 ml @ 100 mls/hr Q10H IV Last administered on 09/05/16 08:12; Start 09/02/16 at 13:00 Ceftriaxone Sodium/Sodium Chloride (Rocephin/Iv Sodium Chloride 0.9% 50ml) 50 ml @ 100 mls/hr Q24H IV Last administered on 09/05/16 11:00; Start 09/04/16 at 11:00 Active Scripts Active Reported Timolol Maleate 10 Ml Drops 1 Drop LEFTEYE DAILY Zolpidem Tartrate 5 Mg Tablet 5 Mg PO HS Percocet 5-325 Mg Tablet (Oxycodone/Acetaminophen) 1 Each Tablet 1 Tab PEG PRN Q4HRS PRN Oxybutynin Chloride 5 Mg/5 Ml Syrup 5 Mg PO BID Ferrous Sulfate 325 Mg Tablet 300 Mg PEG DAILY DURAGESIC 100mcg/hr (Fentanyl) 1 Each Patch.td72 1 Patch TD Q72H Lovenox (Enoxaparin Sodium) 40 Mg/0.4 Ml Disp.syrin 40 Mg SQ HS Vitamin B-12 (Cyanocobalamin (Vitamin B-12)) 1,000 Mcg Tablet 1,000 Mcg SL DAILY Just D (Cholecalciferol (Vitamin D3)) 400 Unit/1 Ml Drops 400 Unit PEG DAILY Atorvastatin Calcium 80 Mg Tablet 80 Mg PEG HS Aspirin 81 Mg Tab.chew 81 Mg PEG DAILY Ascorbic Acid 500 Mg Tablet 500 Mg PEG DAILY Amlodipine Besylate 5 Mg Tablet 5 Mg PEG DAILY Tylenol (Acetaminophen) 325 Mg Tablet 650 Mg PEG PRN PRN Vitals/I & O Vital Sign - Last 24 Hours 09/04/16 09/04/16 09/04/16 09/04/16 15:00 15:10 19:20 20:00 Temp 97.4 98.0 97.4 98.0 Pulse 71 72 Resp 14 16 18 B/P 142/73 139/69 Pulse Ox 100 95 100 O2 Delivery Nasal Cannula Nasal Cannula Nasal Cannula Nasal Cannula O2 Flow Rate 2.0 2.0 2.0 2.0 09/04/16 09/05/16 09/05/16 09/05/16 23:15 03:31 07:00 08:00 Temp 97.9 98.1 98.7 97.9 98.1 98.7 Pulse 72 80 82 Resp 18 18 18 B/P 106/65 126/67 122/70 Pulse Ox 94 100 99 O2 Delivery Nasal Cannula Nasal Cannula Nasal Cannula Nasal Cannula O2 Flow Rate 2.0 2.0 2.0 3.0 09/05/16 09/05/16 09/05/16 09/05/16 08:04 08:34 09:00 11:00 Temp 98.7 98.7 Pulse 82 81 Resp 16 16 18 B/P 122/70 137/75 Pulse Ox 100 O2 Delivery Nasal Cannula Nasal Cannula Nasal Cannula O2 Flow Rate 3.0 3.0 2.0 Intake and Output 09/04/16 09/04/16 09/05/16 15:00 23:00 07:00 Intake Total 1050 ml 1100 ml Output Total 1800 ml 750 ml Balance 1050 ml -1800 ml 350 ml MIKEL SOTO MD Sep 05, 2016 13:58
--- NOTE | 2016-09-05 14:21 | PDOC ---
Subjective: Subjective: Per pt - having a better day today. Objective: Objective: Per RN - resume feedings w/ possible DC tomorrow. Vital Signs: Vital Signs Date Time Temp Pulse Resp B/P Pulse Ox O2 Delivery O2 Flow Rate FiO2 09/05/16 11:00 98.7 81 18 137/75 100 Nasal Cannula 2.0 98.7 Imaging: Acute Abd Series 09/04/16 IMPRESSION: 1. Resolution of the gaseous distention of small bowel evident on 08/31/2016. 2. Worsening mild streaky left basilar atelectasis/infiltrate. PE: GEN: NAD LUNGS: CTAB HEART: RRR ABD: NABS, S/ND/NT, PEG to suction w/ bilious output (canister hasn't required emptying in >2 days) NEURO/PSYCH: A & O 3 OTHER: daughter present A/P: Partial SBO - x-ray improved as above -abd pain improved, passing gas -s/p recent laparotomy and PEG placement at [facility] -feedings held, PEG to suction -?hematemesis - prior to admission, no recurrence -on PPI, Hgb stable -- Note plans to resume feedings prior to DC. DAMON LANGSTON Sep 05, 2016 14:21
--- NOTE | 2016-09-05 14:27 | PDOC ---
RONALD LOUIS MAMMALOGIST 09/05/16 1427: SURGICAL PROGRESS NOTE Subjective less pain reports he had a stool restarting TF today Vital Signs Vital Signs Date Time Temp Pulse Resp B/P Pulse Ox O2 Delivery O2 Flow Rate FiO2 09/05/16 11:00 98.7 81 18 137/75 100 Nasal Cannula 2.0 98.7 I&O Intake and Output 09/05/16 07:00 Intake Total 2150 ml Output Total 2550 ml Balance -400 ml IV Total 2150 ml Output Urine Total 2550 ml General: Alert, Cooperative Abdomen: Soft, No tenderness Labs Laboratory Tests Test 09/04/16 07:53 White Blood Count 6.5x10^3/uL (4.0-11.0) Red Blood Count 2.84x10^6/uL (4.30-5.70) Hemoglobin 8.9g/dL (13.0-17.5) Hematocrit 28.4% (39.0-53.0) Mean Corpuscular Volume 100fL (79-100) Mean Corpuscular Hemoglobin 32pg (25-35) Mean Corpuscular Hemoglobin Concent 32g/dL (31-37) Red Cell Distribution Width 19.3% (11.5-14.5) Platelet Count 246x10^3/uL (140-400) Neutrophils (%) (Auto) 81% (31-73) Lymphocytes (%) (Auto) 14% (24-48) Monocytes (%) (Auto) 5% (0-9) Eosinophils (%) (Auto) 0% (0-3) Basophils (%) (Auto) 0% (0-3) Neutrophils # (Auto) 5.3x10^3uL (1.8-7.7) Lymphocytes # (Auto) 0.9x10^3/uL (1.0-4.8) Monocytes # (Auto) 0.3x10^3/uL (0.0-1.1) Eosinophils # (Auto) 0.0x10^3/uL (0.0-0.7) Basophils # (Auto) 0.0x10^3/uL (0.0-0.2) Sodium Level 144mmol/L (136-145) Potassium Level 3.9mmol/L (3.5-5.1) Chloride Level 110mmol/L (98-107) Carbon Dioxide Level 28mmol/L (21-32) Anion Gap 6 (6-14) Blood Urea Nitrogen 12mg/dL (8-26) Creatinine 1.0mg/dL (0.7-1.3) Estimated GFR (Cockcroft-Gault) 87.7 Glucose Level 120mg/dL (70-99) Calcium Level 8.6mg/dL (8.5-10.1) Vitamin B12 Level 967pg/mL (211-946) Folic Acid (LAB) 14.2ng/mL (>3.0) Problem List Problems Medical Problems: (1) Quadriplegia Status: Acute (2) SBO (small bowel obstruction) Status: Acute (3) Severe protein-calorie malnutrition Status: Acute (4) Upper GI bleed Status: Acute (5) UTI (urinary tract infection) Status: Acute Assessment/Plan improved resume TF Problems: THERESA CRUZ MD 09/06/16 0855: SURGICAL PROGRESS NOTE Assessment/Plan Agree with Timur's assessment and plan. Problems: RONALD LOUIS APRN Sep 05, 2016 14:27 THERESA CRUZ MD Sep 06, 2016 08:55
[2016-09-05 15:00] VITALS: BP 154/77
[2016-09-05] MEDS: POLYETHYLENE GLYCOL 3350 17 GM PACKET. PEG SCH (15:00)
[2016-09-05 19:00] VITALS: BP 134/80
[2016-09-05] MEDS: ATORVASTATIN CALCIUM 40 MG TABLET. PO SCH (22:49)
[2016-09-05] MEDS: ZOLPIDEM 5 MG TABLET. PO SCH (22:49)
[2016-09-05 23:00] VITALS: BP 148/85
[2016-09-06 04:00] VITALS: BP 164/80
[2016-09-06] MEDS: IV DEXTROSE 5% 1,000 ML IV SCH ×2 (06:38→17:00)
[2016-09-06 07:00] VITALS: BP 117/81
[2016-09-06] MEDS: CYANOCOBALAMIN (VITAMIN B-12) 1,000 MCG TABLET. PEG SCH (08:23)
[2016-09-06] MEDS: CHOLECALCIFEROL (VITAMIN D3) 1,000 UNIT TABLET PEG SCH (08:24)
[2016-09-06] MEDS: ASCORBIC ACID 500 MG TABLET PEG SCH (08:24)
[2016-09-06] MEDS: FERROUS SULFATE ORAL 300 MG/5 ML SOLUTION. PEG SCH (08:25)
[2016-09-06] MEDS: AMLODIPINE BESYLATE 5 MG TABLET PEG SCH (08:25)
[2016-09-06] MEDS: POLYETHYLENE GLYCOL 3350 17 GM PACKET. PEG SCH ×2 (08:25→20:34)
[2016-09-06] MEDS: TIMOLOL 0.5% OPHTH SOLUTION 5ML BOTTLE. OU SCH (08:30)
[2016-09-06] MEDS: PANTOPRAZOLE IV PUSH 40 MG VIAL. IVP SCH (08:30)
[2016-09-06] MEDS ORDERED: DOXY100C2 PO (09:06)
[2016-09-06 11:00] VITALS: BP 130/85
[2016-09-06] MEDS: CEFTRIAXONE SODIUM 1 GM in IV NORMAL SALINE 50ML 50 ML IV SCH (11:00)
--- NOTE | 2016-09-06 13:25 | PDOC ---
Subjective: Subjective: Per pt - doing better today. Objective: Objective: Per RN - feedings going well. Vital Signs: Vital Signs Date Time Temp Pulse Resp B/P Pulse Ox O2 Delivery O2 Flow Rate FiO2 09/06/16 11:00 97.9 78 14 130/85 100 Nasal Cannula 2.0 97.9 Labs: Laboratory Tests Test 09/06/16 00:36 Glucose (Fingerstick) 112mg/dL PE: GEN: NAD ABD: S/ND/NT NEURO/PSYCH: answers appropriately A/P: Partial SBO - resolved -s/p recent laparotomy and PEG placement at , tolerating feedings -- Note plans for DC today. DAMON LANGSTON Sep 06, 2016 13:25
--- NOTE | 2016-09-06 14:58 | PDOC ---
PROGRESS NOTES Chief Complaint Chief Complaint SBO 1. SBO, LIKELY 2/2 Adhesion post sx last month 2 recent exploratory lap to remove neuroendocrine tumor 3. reCENT NC WO PCI 4. dementia with MS 5. QUadriplegia, due to MS, with blindness 6. 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 SEVERE malnutrition 10. hypernatremia 11 .anemia s/p 1u PRBC 09/01 History of Present Illness History of Present Illness more communicative, more alert than previously reported no pain feels better abd soft restart tube feeds, if alexsander, send back to [facility] in AM resume PO pomeds Rocephin for UTI, PT was attempted to DC to [place] custodial. was DC, and sent, then returned from [place] for possible insurance issue, will try other, Vitals Vitals Vital Signs Date Time Temp Pulse Resp B/P Pulse Ox O2 Delivery O2 Flow Rate FiO2 09/06/16 11:00 97.9 78 14 130/85 100 Nasal Cannula 2.0 97.9 Physical Exam General: Alert, Cooperative, No acute distress, Other (responsive) Heart: Regular rate, Normal S1, Normal S2, No murmurs Lungs: Clear Abdomen: Soft, No tenderness Extremities: No clubbing, No cyanosis, No edema Skin: No rashes, No breakdown Labs LABS Laboratory Tests Test 09/06/16 00:36 Glucose (Fingerstick) 112mg/dL (70-99) Assessment and Plan Assessmemt and Plan advance PEG feeds doign better Problems Medical Problems: (1) Quadriplegia Status: Acute (2) SBO (small bowel obstruction) Status: Acute (3) Severe protein-calorie malnutrition Status: Acute (4) Upper GI bleed Status: Acute (5) UTI (urinary tract infection) Status: Acute Problems: Comment Review of Relevant I have reviewed the following items juan f (where applicable) has been applied. Labs Laboratory Tests Test 09/06/16 00:36 Glucose (Fingerstick) 112mg/dL (70-99) Laboratory Tests Test 09/06/16 00:36 Glucose (Fingerstick) 112mg/dL (70-99) Microbiology 08/31/16 Blood Culture - Final, Complete NO GROWTH AFTER 5 DAYS 08/31/16 Urine Culture - Final, Complete 08/31/16 Urine Culture Result 1 (HOANG) - Final, Complete 08/31/16 Antimicrobic Susceptibility - Final, Complete Medications Current Medications Sodium Chloride (Iv Sodium Chloride 0.9% 1000ml Bag) 1,000 ml @ 1,000 mls/hr Q1H IV Last administered on 08/31/16 20:01; Start 08/31/16 at 19:13; Stop at 20:12; Status DC Ondansetron HCl (Zofran) 4 mg 1X ONCE IV Last administered on 08/31/16 19:58 ; Start 08/31/16 at 19:15; Stop 08/31/16 at 19:17; Status DC Pantoprazole Sodium (Protonix Vial) 40 mg 1X ONCE IVP Last administered on 19:57; Start 08/31/16 at 19:15; Stop 08/31/16 at 19:17; Status DC Iohexol (Omnipaque 300 Mg/ml) 60 ml 1X ONCE IV Last administered on 08/31/16 20:30; Start 08/31/16 at 20:30; Stop 08/31/16 at 20:31; Status DC Levofloxacin/ Dextrose 1 each 1 each PRN DAILY PRN MC SEE COMMENTS; Start 08/31 at 21:15; Stop 09/03/16 at 11:50; Status DC Levofloxacin/ Dextrose 150 ml @ 100 mls/hr 1X ONCE IV Last administered on 21:51; Start 08/31/16 at 22:00; Stop 08/31/16 at 23:29; Status DC Pantoprazole Sodium 80 mg/ Sodium Chloride 100 ml @ 10 mls/hr 1X ONCE IV Last administered on 09/01/16 00:14; Start 08/31/16 at 23:00; Stop 09/01/16 at 08:59; Status DC Levofloxacin/ Dextrose (LEVAQUIN 250mg PREMIX) 50 ml @ 50 mls/hr Q24H IV Last administered on 09/02/16 21:07; Start 09/01/16 at 22:00; Stop 09/03/16 at 11:50 ; Status DC Ondansetron HCl 4 mg 4 mg PRN Q8HRS PRN IV NAUSEA/VOMITING Last administered on 09/01/16 18:26; Start 08/31/16 at 23:30; Stop 09/01/16 at 23:29; Status DC Sodium Chloride (Iv Sodium Chloride 0.9% 1000ml Bag) 1,000 ml @ 100 mls/hr Q10H IV Last administered on 09/01/16 00:13; Start 08/31/16 at 23:26; Stop at 12:36; Status DC Morphine Sulfate 2 mg PRN Q2HR PRN IV MODERATE PAIN Last administered on 11:52; Start 09/01/16 at 03:15 Acetaminophen (Tylenol) 650 mg PRN Q6HRS PRN PO PAIN; Start 09/01/16 at 12:45 Amlodipine Besylate (Norvasc) 5 mg DAILY PEG Last administered on 09/06/16 08: 25; Start 09/01/16 at 13:00 Ascorbic Acid (Vitamin C) 500 mg DAILY PEG Last administered on 09/06/16 08:24 ; Start 09/02/16 at 09:00 Cyanocobalamin (Vitamin B-12) 1,000 mcg DAILY PEG Last administered on 08:23; Start 09/01/16 at 13:00 Fentanyl (Duragesic 100mcg/Hr Patch) 1 patch Q72H TD Last administered on 11:10; Start 09/01/16 at 12:45 Ferrous Sulfate 300 mg DAILY PEG Last administered on 09/06/16 08:25; Start at 17:00 Oxycodone/ Acetaminophen (Percocet 5/325) 1 tab PRN Q4HRS PRN PEG PAIN Last administered on 09/05/16 22:50; Start 09/01/16 at 12:45 Timolol Maleate (Timoptic 0.5% Oph) 1 drop DAILY OU Last administered on 09/06 08:30; Start 09/01/16 at 14:00 Zolpidem Tartrate (Ambien) 5 mg HS PO Last administered on 09/05/16 22:49; Start 09/01/16 at 21:00 Atorvastatin Calcium (Lipitor) 80 mg QHS PO Last administered on 09/05/16 22: 49; Start 09/01/16 at 21:00 Vitamin D (Vitamin D3) 1,000 unit DAILY PEG Last administered on 09/06/16 08: 24; Start 09/01/16 at 14:00 Pantoprazole Sodium 40 mg 40 mg DAILYAC IVP Last administered on 09/06/16 08: 30; Start 09/01/16 at 14:00 Amino Acids/ Glycerin/ Electrolytes (Procalamine) 1,000 ml @ 80 mls/hr [id number] IV ; Start 09/01/16 at 12:45; Stop 09/01/16 at 12:45; Status DC Ondansetron HCl (Zofran) 4 mg PRN Q6HRS PRN IV NAUSEA/VOMITING; Start 09/01/16 at 12:45 Morphine Sulfate 2 mg PRN Q2HR PRN IV PAIN; Start 09/01/16 at 12:45; Stop 09/01 at 14:46; Status DC Morphine Sulfate 4 mg 4 mg PRN Q2HR PRN IV SEVERE PAIN Last administered on 08:04; Start 09/01/16 at 12:45 Sodium Chloride 1,000 ml @ 100 mls/hr Q10H IV Last administered on 09/02/16 10:42; Start 09/01/16 at 12:45; Stop 09/02/16 at 12:27; Status DC Dextrose 1,000 ml @ 100 mls/hr Q10H IV Last administered on 09/06/16 06:38; Start 09/02/16 at 13:00 Ceftriaxone Sodium/Sodium Chloride (Rocephin/Iv Sodium Chloride 0.9% 50ml) 50 ml @ 100 mls/hr Q24H IV Last administered on 09/06/16 11:00; Start 09/04/16 at 11:00 Polyethylene Glycol (miraLAX PACKET) 17 gm DAILY PEG Last administered on 08:25; Start 09/05/16 at 15:00 Active Scripts Active Doxycycline Hyclate 100 Mg Capsule 1 Cap PO BID Reported Timolol Maleate 10 Ml Drops 1 Drop LEFTEYE DAILY Zolpidem Tartrate 5 Mg Tablet 5 Mg PO HS Percocet 5-325 Mg Tablet (Oxycodone/Acetaminophen) 1 Each Tablet 1 Tab PEG PRN Q4HRS PRN Oxybutynin Chloride 5 Mg/5 Ml Syrup 5 Mg PO BID Ferrous Sulfate 325 Mg Tablet 300 Mg PEG DAILY DURAGESIC 100mcg/hr (Fentanyl) 1 Each Patch.td72 1 Patch TD Q72H Lovenox (Enoxaparin Sodium) 40 Mg/0.4 Ml Disp.syrin 40 Mg SQ HS Vitamin B-12 (Cyanocobalamin (Vitamin B-12)) 1,000 Mcg Tablet 1,000 Mcg SL DAILY Just D (Cholecalciferol (Vitamin D3)) 400 Unit/1 Ml Drops 400 Unit PEG DAILY Atorvastatin Calcium 80 Mg Tablet 80 Mg PEG HS Aspirin 81 Mg Tab.chew 81 Mg PEG DAILY Ascorbic Acid 500 Mg Tablet 500 Mg PEG DAILY Amlodipine Besylate 5 Mg Tablet 5 Mg PEG DAILY Tylenol (Acetaminophen) 325 Mg Tablet 650 Mg PEG PRN PRN Vitals/I & O Vital Sign - Last 24 Hours 09/05/16 09/05/16 09/05/16 09/05/16 15:00 19:00 20:00 22:50 Temp 98.7 98.1 98.7 98.1 Pulse 81 83 Resp 18 18 16 B/P 154/77 134/80 Pulse Ox 100 100 100 O2 Delivery Nasal Cannula Nasal Cannula Nasal Cannula Nasal Cannula O2 Flow Rate 2.0 2.0 3.0 3.0 09/05/16 09/05/16 09/06/16 09/06/16 23:00 23:50 04:00 07:00 Temp 98.6 97.7 98.7 98.6 97.7 98.7 Pulse 81 85 93 Resp 18 18 14 B/P 148/85 164/80 117/81 Pulse Ox 100 100 100 100 O2 Delivery Nasal Cannula Nasal Cannula Nasal Cannula Nasal Cannula O2 Flow Rate 2.0 2.0 2.0 2.0 09/06/16 09/06/16 09/06/16 08:00 08:25 11:00 Temp 97.9 97.9 Pulse 93 78 Resp 14 B/P 117/81 130/85 Pulse Ox 100 O2 Delivery Nasal Cannula Nasal Cannula O2 Flow Rate 2.0 2.0 Intake and Output 09/05/16 09/05/16 09/06/16 15:00 23:00 07:00 Intake Total 280 ml Output Total 1250 ml 1000 ml Balance -1250 ml -720 ml MIKEL SOTO MD Sep 06, 2016 14:58
[2016-09-06 15:00] VITALS: BP 149/84
[2016-09-06] MEDS ORDERED: MAGNESIUM HYDROXIDE 2,400 MG/30 ML ORAL.SUSP. PO ONE ×2 (15:00→20:00)
[2016-09-06 19:00] VITALS: BP 138/72
[2016-09-06] MEDS: ATORVASTATIN CALCIUM 40 MG TABLET. PO SCH (20:34)
[2016-09-06] MEDS: ZOLPIDEM 5 MG TABLET. PO SCH (20:34)
[2016-09-06 23:00] VITALS: BP 143/86
[2016-09-07 03:00] VITALS: BP 134/77
[2016-09-07] MEDS: IV DEXTROSE 5% 1,000 ML IV SCH (03:00)
[2016-09-07 07:00] VITALS: BP 117/71
[2016-09-07] MEDS: PANTOPRAZOLE IV PUSH 40 MG VIAL. IVP SCH (07:30)
--- NOTE | 2016-09-07 09:08 | PDOC ---
PROGRESS NOTES Chief Complaint Chief Complaint 1. Small bowel obstruction 2. Neuroendocrine tumor- had recent exploratory lap to remove 3. [place] w/o PCI 4. Dementia with MS 5. Quadriplegia secondary to MS 6. Blindness 7. 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 Dysphagia with PEG placement 9. Suprapubic Mar[place], Chronic 10. Severe malnutrition 11. Hypernatremia 12. Anemia History of Present Illness History of Present Illness Pt resting comfortably today in NAD. PEG feeds in place and running at 50cc / hr. [facility] Team- PT was attempted to DC to [facility] yesterday and was returned from [place] for possible insurance issue/ no Dr to . Info given to [place] to call physician here. Awaiting discharge Vitals Vitals Vital Signs Date Time Temp Pulse Resp B/P Pulse Ox O2 Delivery O2 Flow Rate FiO2 09/07/16 07:00 98.6 86 16 117/71 99 Nasal Cannula 3.0 98.6 Physical Exam General: Alert, Cooperative, No acute distress Heart: Regular rate, Normal S1, Normal S2, No murmurs Lungs: Clear, Other (no wheezes) Abdomen: Normal bowel sounds, Soft, No tenderness Extremities: No clubbing, No cyanosis, No edema, Other (Heel Protectors in place) Skin: No rashes, No breakdown Labs LABS Laboratory Tests Test 09/06/16 20:46 09/07/16 06:06 Glucose (Fingerstick) 95mg/dL (70-99) 111mg/dL (70-99) Review of Systems Review of Systems Pain improved Complaining of fatigue Complaining of hunger Assessment and Plan Assessmemt and Plan Problems Medical Problems: (1) Quadriplegia Status: Acute (2) SBO (small bowel obstruction) Status: Acute (3) Severe protein-calorie malnutrition Status: Acute (4) Upper GI bleed Status: Acute (5) UTI (urinary tract infection) Status: Acute 1. Small bowel obstruction 2. Neuroendocrine tumor- had recent exploratory lap to remove 3. TN w/o PCI 4. Dementia with MS 5. Quadriplegia secondary to MS 6. Blindness 7. 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 Dysphagia with PEG placement 9. Suprapubic Mar[place]aga, Chronic 10. Severe malnutrition 11. Hypernatremia 12. Anemia 13. UTI Plan: - Continue Care per floor protocol - Continue Rocephin Treatment for UTI - Urine Cx: positive for E. Coli sensitive to Rocephin - Anemia: Hgb 8.9 on last check- given 1 unit PRBC on 09/01/16 - Appreciate GI recommendations - Continue Regular home medications - PEG Feeds at this time - Heel Protectors in place at this time - Continue on regular 02 via NC - Disposition: Plan is for Discharge today- would not accept at other facility yesterday b/c no Dr to Dr Problems: Comment Review of Relevant I have reviewed the following items juan f (where applicable) has been applied. Labs Laboratory Tests Test 09/06/16 00:36 09/06/16 20:46 09/07/16 06:06 Glucose (Fingerstick) 112mg/dL (70-99) 95mg/dL (70-99) 111mg/dL (70-99) Laboratory Tests Test 09/06/16 20:46 09/07/16 06:06 Glucose (Fingerstick) 95mg/dL (70-99) 111mg/dL (70-99) Microbiology 08/31/16 Blood Culture - Final, Complete NO GROWTH AFTER 5 DAYS 08/31/16 Urine Culture - Final, Complete 08/31/16 Urine Culture Result 1 (HOANG) - Final, Complete 08/31/16 Antimicrobic Susceptibility - Final, Complete Medications Current Medications Sodium Chloride (Iv Sodium Chloride 0.9% 1000ml Bag) 1,000 ml @ 1,000 mls/hr Q1H IV Last administered on 08/31/16 20:01; Start 08/31/16 at 19:13; Stop at 20:12; Status DC Ondansetron HCl (Zofran) 4 mg 1X ONCE IV Last administered on 08/31/16 19:58 ; Start 08/31/16 at 19:15; Stop 08/31/16 at 19:17; Status DC Pantoprazole Sodium (Protonix Vial) 40 mg 1X ONCE IVP Last administered on 19:57; Start 08/31/16 at 19:15; Stop 08/31/16 at 19:17; Status DC Iohexol (Omnipaque 300 Mg/ml) 60 ml 1X ONCE IV Last administered on 08/31/16 20:30; Start 08/31/16 at 20:30; Stop 08/31/16 at 20:31; Status DC Levofloxacin/ Dextrose 1 each 1 each PRN DAILY PRN MC SEE COMMENTS; Start 08/31 at 21:15; Stop 09/03/16 at 11:50; Status DC Levofloxacin/ Dextrose 150 ml @ 100 mls/hr 1X ONCE IV Last administered on 21:51; Start 08/31/16 at 22:00; Stop 08/31/16 at 23:29; Status DC Pantoprazole Sodium 80 mg/ Sodium Chloride 100 ml @ 10 mls/hr 1X ONCE IV Last administered on 09/01/16 00:14; Start 08/31/16 at 23:00; Stop 09/01/16 at 08:59; Status DC Levofloxacin/ Dextrose (LEVAQUIN 250mg PREMIX) 50 ml @ 50 mls/hr Q24H IV Last administered on 09/02/16 21:07; Start 09/01/16 at 22:00; Stop 09/03/16 at 11:50 ; Status DC Ondansetron HCl 4 mg 4 mg PRN Q8HRS PRN IV NAUSEA/VOMITING Last administered on 09/01/16 18:26; Start 08/31/16 at 23:30; Stop 09/01/16 at 23:29; Status DC Sodium Chloride (Iv Sodium Chloride 0.9% 1000ml Bag) 1,000 ml @ 100 mls/hr Q10H IV Last administered on 09/01/16 00:13; Start 08/31/16 at 23:26; Stop at 12:36; Status DC Morphine Sulfate 2 mg PRN Q2HR PRN IV MODERATE PAIN Last administered on 11:52; Start 09/01/16 at 03:15 Acetaminophen (Tylenol) 650 mg PRN Q6HRS PRN PO PAIN; Start 09/01/16 at 12:45 Amlodipine Besylate (Norvasc) 5 mg DAILY PEG Last administered on 09/06/16 08: 25; Start 09/01/16 at 13:00 Ascorbic Acid (Vitamin C) 500 mg DAILY PEG Last administered on 09/06/16 08:24 ; Start 09/02/16 at 09:00 Cyanocobalamin (Vitamin B-12) 1,000 mcg DAILY PEG Last administered on 08:23; Start 09/01/16 at 13:00 Fentanyl (Duragesic 100mcg/Hr Patch) 1 patch Q72H TD Last administered on 11:10; Start 09/01/16 at 12:45 Ferrous Sulfate 300 mg DAILY PEG Last administered on 09/06/16 08:25; Start at 17:00 Oxycodone/ Acetaminophen (Percocet 5/325) 1 tab PRN Q4HRS PRN PEG PAIN Last administered on 09/05/16 22:50; Start 09/01/16 at 12:45 Timolol Maleate (Timoptic 0.5% [facility]) 1 drop DAILY OU Last administered on 09/06 08:30; Start 09/01/16 at 14:00 Zolpidem Tartrate (Ambien) 5 mg HS PO Last administered on 09/06/16 20:34; Start 09/01/16 at 21:00 Atorvastatin Calcium (Lipitor) 80 mg QHS PO Last administered on 09/06/16 20: 34; Start 09/01/16 at 21:00 Vitamin D (Vitamin D3) 1,000 unit DAILY PEG Last administered on 09/06/16 08: 24; Start 09/01/16 at 14:00 Pantoprazole Sodium 40 mg 40 mg DAILYAC IVP Last administered on 09/06/16 08: 30; Start 09/01/16 at 14:00 Amino Acids/ Glycerin/ Electrolytes (Procalamine) 1,000 ml @ 80 mls/hr [id number] IV ; Start 09/01/16 at 12:45; Stop 09/01/16 at 12:45; Status DC Ondansetron HCl (Zofran) 4 mg PRN Q6HRS PRN IV NAUSEA/VOMITING; Start 09/01/16 at 12:45 Morphine Sulfate 2 mg PRN Q2HR PRN IV PAIN; Start 09/01/16 at 12:45; Stop 09/01 at 14:46; Status DC Morphine Sulfate 4 mg 4 mg PRN Q2HR PRN IV SEVERE PAIN Last administered on 08:04; Start 09/01/16 at 12:45 Sodium Chloride 1,000 ml @ 100 mls/hr Q10H IV Last administered on 09/02/16 10:42; Start 09/01/16 at 12:45; Stop 09/02/16 at 12:27; Status DC Dextrose 1,000 ml @ 100 mls/hr Q10H IV Last administered on 09/06/16 06:38; Start 09/02/16 at 13:00; Stop 09/07/16 at 04:02; Status DC Ceftriaxone Sodium/Sodium Chloride (Rocephin/Iv Sodium Chloride 0.9% 50ml) 50 ml @ 100 mls/hr Q24H IV Last administered on 09/06/16 11:00; Start 09/04/16 at 11:00 Polyethylene Glycol (miraLAX PACKET) 17 gm DAILY PEG Last administered on 08:25; Start 09/05/16 at 15:00; Stop 09/06/16 at 15:01; Status DC Polyethylene Glycol (miraLAX PACKET) 17 gm BID PEG Last administered on 20:34; Start 09/06/16 at 21:00 Magnesium Hydroxide (Milk Of Magnesia) 2,400 mg 1X ONCE PO ; Start 09/06/16 at 15:00; Stop 09/06/16 at 15:06; Status DC Magnesium Hydroxide (Milk Of Magnesia) 2,400 mg 1X ONCE PO Last administered on 09/06/16 20:00; Start 09/06/16 at 20:00; Stop 09/06/16 at 20:01; Status DC Active Scripts Active Doxycycline Hyclate 100 Mg Capsule 1 Cap PO BID Reported Timolol Maleate 10 Ml Drops 1 Drop LEFTEYE DAILY Zolpidem Tartrate 5 Mg Tablet 5 Mg PO HS Percocet 5-325 Mg Tablet (Oxycodone/Acetaminophen) 1 Each Tablet 1 Tab PEG PRN Q4HRS PRN Oxybutynin Chloride 5 Mg/5 Ml Syrup 5 Mg PO BID Ferrous Sulfate 325 Mg Tablet 300 Mg PEG DAILY DURAGESIC 100mcg/hr (Fentanyl) 1 Each Patch.td72 1 Patch TD Q72H Lovenox (Enoxaparin Sodium) 40 Mg/0.4 Ml Disp.syrin 40 Mg SQ HS Vitamin B-12 (Cyanocobalamin (Vitamin B-12)) 1,000 Mcg Tablet 1,000 Mcg SL DAILY Just D (Cholecalciferol (Vitamin D3)) 400 Unit/1 Ml Drops 400 Unit PEG DAILY Atorvastatin Calcium 80 Mg Tablet 80 Mg PEG HS Aspirin 81 Mg Tab.chew 81 Mg PEG DAILY Ascorbic Acid 500 Mg Tablet 500 Mg PEG DAILY Amlodipine Besylate 5 Mg Tablet 5 Mg PEG DAILY Tylenol (Acetaminophen) 325 Mg Tablet 650 Mg PEG PRN PRN Vitals/I & O Vital Sign - Last 24 Hours 09/06/16 09/06/16 09/06/16 09/06/16 11:00 15:00 19:00 20:15 Temp 97.9 98.8 97.5 97.9 98.8 97.5 Pulse 78 86 96 Resp 18 B/P 130/85 149/84 138/72 Pulse Ox 100 100 100 O2 Delivery Nasal Cannula Nasal Cannula Nasal Cannula Nasal Cannula O2 Flow Rate 2.0 2.0 2.0 3.0 09/06/16 09/07/16 09/07/16 23:00 03:00 07:00 Temp 97.3 97.5 98.6 97.3 97.5 98.6 Pulse 94 90 86 Resp 18 16 B/P 143/86 134/77 117/71 Pulse Ox 98 99 99 O2 Delivery Nasal Cannula Nasal Cannula Nasal Cannula O2 Flow Rate 2.0 2.0 3.0 Intake and Output 09/06/16 09/06/16 09/07/16 15:00 23:00 07:00 Intake Total 650 ml Output Total 650 ml 800 ml Balance -650 ml -150 ml IJEOMANIAL K III DO Sep 07, 2016 09:08
[2016-09-07] MEDS: ASCORBIC ACID 500 MG TABLET PEG SCH (09:38)
[2016-09-07] MEDS: POLYETHYLENE GLYCOL 3350 17 GM PACKET. PEG SCH (09:38)
[2016-09-07] MEDS: TIMOLOL 0.5% OPHTH SOLUTION 5ML BOTTLE. OU SCH (09:38)
[2016-09-07] MEDS: CYANOCOBALAMIN (VITAMIN B-12) 1,000 MCG TABLET. PEG SCH (09:38)
[2016-09-07] MEDS: CHOLECALCIFEROL (VITAMIN D3) 1,000 UNIT TABLET PEG SCH (09:38)
[2016-09-07] MEDS: AMLODIPINE BESYLATE 5 MG TABLET PEG SCH (09:39)
[2016-09-07] MEDS: FERROUS SULFATE ORAL 300 MG/5 ML SOLUTION. PEG SCH (09:39)
[2016-09-07] MEDS ORDERED: LANSOPRAZOLE 30 MG TAB.RAP.DR FT SCH (10:00)
[2016-09-07 11:00] VITALS: BP 123/77
[2016-09-07] MEDS: CEFTRIAXONE SODIUM 1 GM in IV NORMAL SALINE 50ML 50 ML IV SCH (11:00)
[2016-09-07] MEDS: FENTANYL 100 MCG/HR TD SCH (11:16)
== END 2016-09-07 12:20 | disposition short-term general hospital (02) | DRG 871 ==
LOC: ER 18:25 → 4 NORTH 22:27
PROVIDERS: ADMIT Internal Medicine; ATTEND Internal Medicine
PROC: 30233N1 Transfusion of Nonautologous Red Blood Cells into Peripheral Vein, Percutaneous Approach (ICD-10-PCS; principal; 2016-09-01)
DX: A41.9 Sepsis, unspecified organism (principal); E43 Unspecified severe protein-calorie malnutrition; G82.50 Quadriplegia, unspecified; K56.60 Unspecified intestinal obstruction; K92.0 Hematemesis; E87.0 Hyperosmolality and hypernatremia; J98.11 Atelectasis; K56.7 Ileus, unspecified; K91.89 Other postprocedural complications and disorders of digestive system; N39.0 Urinary tract infection, site not specified; D3A.8 Other benign neuroendocrine tumors; D64.9 Anemia, unspecified; F03.90 Unspecified dementia, unspecified severity, without behavioral disturbance, psychotic disturbance, mood disturbance, and anxiety; G35 Multiple sclerosis; H40.9 Unspecified glaucoma; H54.8 Legal blindness, as defined in USA; I10 Essential (primary) hypertension; N31.9 Neuromuscular dysfunction of bladder, unspecified; N20.0 Calculus of kidney; F32.9 Major depressive disorder, single episode, unspecified; K59.00 Constipation, unspecified; I25.2 Old myocardial infarction; Z88.0 Allergy status to penicillin; Z91.048 Other nonmedicinal substance allergy status; Z93.1 Gastrostomy status; Z74.01 Bed confinement status; Z79.899 Other long term (current) drug therapy
CPT/HCPCS: 36415; 74022; 74177; 80048; 80053; 81001; 82274; 82553; 82607; 82746; 82947; 83605; 84484; 85007; 85027; 85610; 85730; 86850; 86870; 86900; 86901; 86920; 87040; 87086; 87186; 87641; 93005; 96361; 96374; 96375; C9113; J0696; J1956; J2270; J2405; J7030; P9016; Q9967; 99285-25